=== PATIENT | female | born 1945 | race Caucasian/White ===

== ENCOUNTER → 2017-11-12 | Outpatient (CLI) | payer OTHER, BC ==
[~2017-11-12] MED LIST: ASPEC81 PO; CLR10 PO; DOCU100C PO; DORZ1SOL6 OPB; DSWCR TOP; ERGO1CAP35 PO; HYDR25TA4 PO; LEVO75TA PO; LEVO88TA PO; LORA-741 PO; LOSA1TAB38 PO; METO25TA4 PO; RANI150T85 PO; SIMV40TA2 PO
[2017-11-12 12:12] LABS: BASO % 0.4 %; BASO ABS # 0.02 K/uL (0-0.2); EOS % 4.9 %; EOS ABS # 0.23 K/uL (0-0.5); HEMATOCRIT 38.5 % (37-47); HEMOGLOBIN 12.7 g/dL (12.0-16.0); IG# 0.01 K/uL (0.00-0.02); LYMPH ABS # 1.55 K/uL (1.2-3.4); MEAN CELL VOLUME 95.8 fL (80-100); MEAN CORPUSCULAR HEMOGLOBIN 31.6 pg (25-34); MEAN PLATELET VOLUME 10.3 fL (7.4-10.4); MONO % 11.3 %; MONO ABS # 0.53 K/uL (0.11-0.59); NEUT % 50.2 %; NEUT ABS # 2.35 K/uL (1.4-6.5); PLATELET COUNT 267 K/uL (130-400); RED CELL DISTRIBUTION WIDTH CV 13.4 % (11.5-14.5); RED CELL DISTRIBUTION WIDTH SD 46.7 fL (36.4-46.3); WHITE BLOOD COUNT 4.69 K/uL (4.8-10.8)
[2017-11-12 12:23] LABS: ALBUMIN 3.4 gm/dl (3.4-5.0); ALT/SGPT 23 U/L (12-78); AST/SGOT 18 U/L (15-37); BLOOD UREA NITROGEN 13 mg/dl (7-18); CALCIUM 8.4 mg/dl (8.5-10.1); CARBON DIOXIDE 27 mmol/L (21-32); CHOLESTEROL 167 mg/dl (0-200); CREATININE 0.72 mg/dl (0.60-1.20); GLUCOSE 90 mg/dl (70-99); POTASSIUM 4.2 mmol/L (3.5-5.1); SODIUM 137 mmol/L (136-145)
[2017-11-12 12:32] LABS: ALKALINE PHOSPHATASE 81 U/L (45-117); LDL CHOLESTEROL CALCULATED 90 mg/dl; TOTAL PROTEIN 6.7 gm/dl (6.4-8.2)
== END | disposition home or self-care (01) ==
LOC: C.LAB1850 10:23
PROVIDERS: ATTEND Internal Medicine Cardiovascular Disease
DX: E78.5 Hyperlipidemia, unspecified (principal)

== ENCOUNTER → 2017-11-27 | Outpatient (CLI) | payer OTHER, BC ==
--- NOTE | 2017-11-29 08:01 | MAMMOGRAPHY REPORT ---
BILATERAL DIGITAL SCREENING MAMMOGRAM TOMOSYNTHESIS WITH CAD: 11/27/2017 CLINICAL HISTORY: Routine screening. Patient has no complaints. TECHNIQUE: Breast tomosynthesis in addition to standard 2D mammography was performed. Current study was also evaluated with a Computer Aided Detection (CAD) system. COMPARISON: Prior mammograms from [facility] dated 01/26/2014, 01/28/2015, 11/02/2016. BREAST COMPOSITION: The tissue of both breasts is almost entirely fatty. FINDINGS: There has been no significant interval change comparing to the prior outside mammograms. T here are a few stable benign rim calcifications in the breasts. No suspicious mass, architectural di stortion or cluster of microcalcifications is seen. IMPRESSION: ACR BI-RADS CATEGORY 1: NEGATIVE There is no mammographic evidence of malignancy. A 1 year screening mammogram is recommended. The pa tient will receive written notification of the results. Approximately 10% of breast cancers are not detected with mammography. A negative mammographic report should not delay biopsy if a clinically suggestive mass is present. Laura Kramer M.D. ay/:11/27/2017 16:38:31 Itinerant Teacher Assistant: Kristi SMALL(Indira)(Sara)(BD), [facility] letter sent: Normal 1/2 BI-RADS Code: ACR BI-RADS Category 1: Negative
== END | disposition home or self-care (01) ==
LOC: C.MAMM 13:38
PROVIDERS: ATTEND Neuromusculoskeletal Medicine & OMM
DX: Z12.31 Encounter for screening mammogram for malignant neoplasm of breast (principal)

== ENCOUNTER → 2018-04-17 | Outpatient (CLI) | payer OTHER, BC ==
[2018-04-17 10:01] LABS: BASO % 1.4 %; BASO ABS # 0.06 K/uL (0-0.2); EOS % 3.9 %; EOS ABS # 0.17 K/uL (0-0.5); HEMOGLOBIN 12.7 g/dL (12.0-16.0); LYMPH % 35.5 %; LYMPH ABS # 1.54 K/uL (1.2-3.4); MEAN CELL VOLUME 94.3 fL (80-100); MEAN CORPUSCULAR HEMOGLOBIN 31.5 pg (25-34); MEAN CORPUSCULAR HGB CONC 33.4 g/dl (32-36); MEAN PLATELET VOLUME 11.2 fL (7.4-10.4); MONO % 8.5 %; MONO ABS # 0.37 K/uL (0.11-0.59); NEUT % 50.7 %; PLATELET COUNT 158 K/uL (130-400); RED CELL DISTRIBUTION WIDTH CV 13.4 % (11.5-14.5); RED CELL DISTRIBUTION WIDTH SD 46.4 fL (36.4-46.3); WHITE BLOOD COUNT 4.34 K/uL (4.8-10.8)
[2018-04-17 13:52] LABS: ALBUMIN 3.5 gm/dl (3.4-5.0); ALKALINE PHOSPHATASE 216 U/L (45-117); ALT/SGPT 152 U/L (12-78); AST/SGOT 142 U/L (15-37); BLOOD UREA NITROGEN 21 mg/dl (7-18); CALCIUM 8.4 mg/dl (8.5-10.1); CARBON DIOXIDE 30 mmol/L (21-32); CHOLESTEROL 126 mg/dl (0-200); CREATININE 0.79 mg/dl (0.60-1.20); GLUCOSE 88 mg/dl (70-99); LDL CHOLESTEROL CALCULATED 60 mg/dl; POTASSIUM 4.1 mmol/L (3.5-5.1); SODIUM 138 mmol/L (136-145)
== END | disposition home or self-care (01) ==
LOC: C.LAB1850 08:57
PROVIDERS: ATTEND Neuromusculoskeletal Medicine & OMM
DX: Z00.00 Encounter for general adult medical examination without abnormal findings (principal); H54.7 Unspecified visual loss; I25.10 Atherosclerotic heart disease of native coronary artery without angina pectoris; E03.9 Hypothyroidism, unspecified; E55.9 Vitamin D deficiency, unspecified; I10 Essential (primary) hypertension

== ENCOUNTER → 2018-04-30 | Outpatient (CLI) | payer OTHER, BC ==
[2018-04-30 14:13] LABS: ALBUMIN 3.5 gm/dl (3.4-5.0)
== END | disposition home or self-care (01) ==
LOC: C.LAB1850 13:21
PROVIDERS: ATTEND Neuromusculoskeletal Medicine & OMM
DX: R74.8 Abnormal levels of other serum enzymes (principal)

== ENCOUNTER 2021-07-05 10:10 | Inpatient (IN) ==
[2021-07-05] MEDS ORDERED: SODIUM CHLORIDE 0.9% 1000ML 2,000 ML IV SCH (11:00)
[2021-07-05 11:09] LABS: Basophils # (auto) 0.01 K/uL (0-0.2); Basophils % (auto) 0.1 %; Eosinophils # (auto) 0.01 K/uL (0-0.5); Eosinophils % (auto) 0.1 %; Hematocrit (blood only) 38.4 % (37-47); Hemoglobin 13.5 g/dL (12.0-16.0); Immature Granulocytes # (auto) 0.05 K/uL (0.00-0.02); Immature Granulocytes % (auto) 0.4 %; Lymphocytes # (auto) 0.69 K/uL (1.2-3.4); Lymphocytes % (auto) 5.5 %; Mean Corpuscular Hgb Conc 35.2 g/dL (32-36); Mean Platelet Volume 11.5 fL (7.4-10.4); Monocytes # (auto) 1.14 K/uL (0.11-0.59); Neutrophils # (auto) 10.76 K/uL (1.4-6.5); Neutrophils % (auto) 84.9 %; Platelet Count 146 K/uL (130-400); RDW Coefficient of Variation 13.1 % (11.5-14.5); RDW Standard Deviation 43.6 fL (36.4-46.3); Red Blood Count 4.22 M/uL (4.2-5.4); White Blood Count 12.66 K/uL (4.8-10.8)
--- NOTE | 2021-07-05 11:11 | Emergency Department Note ---
History of Present Illness General Chief complaint: Back Injury/Pain Stated complaint: BACK PAIN Time Seen by Provider: 07/05/21 10:37 History of Present Illness Maximum Pain Intensity: 9 This is a 75-year-old female who presents to the ED with a chief complaint of some nausea and vomiting for the past 2-1/2 days. She also has been feeling lightheaded when she gets up. She states she has been having some lower abdominal/pelvis pain since March. She is also had low back pain for at least the past year or so. She has not seen anybody for this. She states that she has been taking ibuprofen for pain. She does suffer also from some constipation issues. She took single Dulcolax and did have a normal bowel movement yesterday. Then she states that she started urinating about once every hour a couple of days ago. No other complaints at this time. She was noted to be hypotensive in triage with a blood pressure 51/32. She was brought to the room and she was 67/48. She denies any chest pains or shortness of breath. She does report a history of 2 stents. Home Medications Medication Instructions Recorded Confirmed Type aspirin 81 mg tablet,delayed 81 mg PO QAM 12/19/18 07/05/21 History release cholecalciferol (vitamin D3) 50 2,000 unit PO QAM 12/19/18 07/05/21 History mcg (2,000 unit) tablet (Vitamin D3) docusate sodium 100 mg tablet 100 mg PO HS 12/19/18 07/05/21 History (Stool Softener) loratadine 10 mg capsule 10 mg PO DAILY PRN 12/19/18 07/05/21 History desonide 0.05 % topical cream 1 appln TOP BID 07/10/19 07/05/21 History dorzolamide 22.3 mg-timolol 6.8 1 drp OPHTHALMIC (EYE) BID 07/10/19 07/05/21 History mg/mL eye drops lorazepam 0.5 mg tablet 0.5 mg PO DAILY PRN 07/10/19 07/05/21 History metoprolol tartrate 25 mg tablet 25 mg PO BID #180 tab 07/09/20 07/05/21 Rx losartan 100 mg tablet 100 mg PO DAILY #90 tab 09/03/20 07/05/21 Rx levothyroxine 75 mcg tablet 75 mcg PO Q OTHER DAY #45 tab 09/23/20 07/05/21 Rx hydrochlorothiazide 12.5 mg tablet 12.5 mg PO DAILY #90 tab 01/02/21 07/05/21 Rx levothyroxine 88 mcg tablet 88 mcg PO Q OTHER DAY #45 tab 04/26/21 07/05/21 Rx alendronate 70 mg tablet (Fosamax) 70 mg PO ELLIS 07/05/21 07/05/21 History atorvastatin 80 mg tablet 80 mg PO HS 07/05/21 07/05/21 History Allergies Allergy/AdvReac Type Severity Reaction Status Date / Time duloxetine Allergy Mild "I was on Verified 07/05/21 10:34 an emotional roller coaster" oxycodone Allergy Mild nightmares Verified 07/05/21 10:34 turkey Allergy Mild nausea/vomi Verified 07/05/21 10:34 ting Past Med/Surg History Medical History Anxiety Chest pain (11/14/13) Degenerative disc disease Elevated troponin I level Glaucoma History of Graves' disease Hyperlipidemia Hypertension Hypokalemia Hypothyroidism Migraine Osteoarthritis Pulmonary embolism Pulmonary embolism 2012--unknown origin Surgical History History of bilateral tubal ligation History of cardiac cath 10/2010 x2 History of cholecystectomy History of colonoscopy History of esophagogastroduodenoscopy (EGD) History of heart artery stent 10/2010 2 stents History of lumbar discectomy x2 L4-L5 History of parathyroidectomy with thyroidectomy History of thyroidectomy, total 1985--enlarged thyroid, Grave's Disease History of tooth extraction upper teeth removed Family History Grandmother (Maternal) Family history of diabetes mellitus Grandmother (Paternal) Family history of diabetes mellitus Father Myocardial infarction Other No family history of adverse response to anesthesia Denies family history of Ovarian cancer Prostate cancer Breast cancer Colorectal cancer Social History Smoking Status: Former smoker Tobacco Type: Cigarettes Age Started Using Tobacco: 20; Age Quit Using Tobacco: 69; packs per day: 0.5; Years Smoked: 49; Number of Years Since Quit: 4; Second Hand Exposure: Yes ( smokes); Hx Alcohol Use: Yes Alcohol type: wine and hard liquor Alcohol Intake Frequency: 2-4 x/Month Hx Substance Use: No Preferred Language: Comoran Communication Ability: Effective 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 Consultant Required: No Beliefs That Will Affect Care: None marital status: Current Living Situation: Spouse current occupational status: retired Feels Safe at Home: Yes Childhood Exposure to Second-Hand Smoke: Yes Dental Care, Regularly: Yes Physical Activity Frequency: 1-2 Times per Week Seatbelt Use: always Sunscreen Use: Yes Assistive Devices: Denture - Upper and Glasses Review of Systems A total of 10 systems reviewed and were otherwise negative Physical Exam Vital Signs Vital Signs - 24 hr 07/05/21 10:16 07/05/21 10:25 07/05/21 10:30 Temperature 36.2 C L Temperature Source Temporal Artery Scan Pulse Rate - Lying Pulse Rate - Sitting Pulse Rate - Standing Pulse Rate 115 H Pulse Rate [Left Apical] 75 77 Pulse Rhythm [Left Apical] Regular Regular Pulse Strength [Left Apical] Normal Respiratory Rate 16 16 16 Respiratory Effort / Characteristics Non-Labored Non-Labored Respiratory Depth Normal Normal Blood Pressure - Lying Blood Pressure - Sitting Blood Pressure- Standing Blood Pressure 51/32 L Blood Pressure [Right Arm] 85/49 L 67/48 L Blood Pressure Mean 38 Blood Pressure Mean [Right Arm] 61 54 Blood Pressure Position [Right Arm] Lying Lying Pulse Oximetry 96 97 95 Oxygen Delivery Method Room Air Room Air Room Air Sepsis Recent Fever Within 48 Hours No Sepsis New/Unexplained Change in Mental Status No Sepsis Action Taken by Nursing No Action Required 07/05/21 10:32 07/05/21 10:38 07/05/21 10:42 Temperature Temperature Source Pulse Rate - Lying Pulse Rate - Sitting Pulse Rate - Standing Pulse Rate 76 Pulse Rate [Left Apical] 74 76 Pulse Rhythm [Left Apical] Regular Pulse Strength [Left Apical] Normal Respiratory Rate 22 16 16 Respiratory Effort / Characteristics Non-Labored Non-Labored Respiratory Depth Normal Normal Blood Pressure - Lying Blood Pressure - Sitting Blood Pressure- Standing Blood Pressure Blood Pressure [Right Arm] 85/55 L 82/52 L Blood Pressure Mean Blood Pressure Mean [Right Arm] 65 62 Blood Pressure Position [Right Arm] Lying Pulse Oximetry 96 97 98 Oxygen Delivery Method Room Air Room Air Sepsis Recent Fever Within 48 Hours Sepsis New/Unexplained Change in Mental Status Sepsis Action Taken by Nursing 07/05/21 11:01 07/05/21 11:21 07/05/21 11:22 Temperature Temperature Source Pulse Rate - Lying Pulse Rate - Sitting Pulse Rate - Standing Pulse Rate 74 Pulse Rate [Left Apical] 69 Pulse Rhythm [Left Apical] Pulse Strength [Left Apical] Respiratory Rate 20 16 Respiratory Effort / Characteristics Respiratory Depth Blood Pressure - Lying Blood Pressure - Sitting Blood Pressure- Standing Blood Pressure Blood Pressure [Right Arm] 97/57 L Blood Pressure Mean Blood Pressure Mean [Right Arm] 70 Blood Pressure Position [Right Arm] Pulse Oximetry 97 97 Oxygen Delivery Method Room Air Sepsis Recent Fever Within 48 Hours Sepsis New/Unexplained Change in Mental Status Sepsis Action Taken by Nursing 07/05/21 11:24 07/05/21 11:30 07/05/21 12:00 Temperature Temperature Source Pulse Rate - Lying 68 Pulse Rate - Sitting 70 Pulse Rate - Standing 72 Pulse Rate 69 66 Pulse Rate [Left Apical] Pulse Rhythm [Left Apical] Pulse Strength [Left Apical] Respiratory Rate 22 19 Respiratory Effort / Characteristics Respiratory Depth Blood Pressure - Lying 94/51 L Blood Pressure - Sitting 95/52 L Blood Pressure- Standing 100/55 L Blood Pressure Blood Pressure [Right Arm] Blood Pressure Mean Blood Pressure Mean [Right Arm] Blood Pressure Position [Right Arm] Pulse Oximetry 97 97 Oxygen Delivery Method Sepsis Recent Fever Within 48 Hours Sepsis New/Unexplained Change in Mental Status Sepsis Action Taken by Nursing 07/05/21 12:30 07/05/21 13:01 07/05/21 14:12 Temperature Temperature Source Pulse Rate - Lying Pulse Rate - Sitting Pulse Rate - Standing Pulse Rate 67 Pulse Rate [Left Apical] 67 63 Pulse Rhythm [Left Apical] Regular Pulse Strength [Left Apical] Normal Respiratory Rate 14 12 Respiratory Effort / Characteristics Non-Labored Respiratory Depth Normal Blood Pressure - Lying Blood Pressure - Sitting Blood Pressure- Standing Blood Pressure Blood Pressure [Right Arm] 99/56 L 90/51 L 88/51 L Blood Pressure Mean Blood Pressure Mean [Right Arm] 70 64 63 Blood Pressure Position [Right Arm] Lying Pulse Oximetry 97 97 Oxygen Delivery Method Room Air Room Air Sepsis Recent Fever Within 48 Hours Sepsis New/Unexplained Change in Mental Status Sepsis Action Taken by Nursing 07/05/21 14:27 Temperature Temperature Source Pulse Rate - Lying Pulse Rate - Sitting Pulse Rate - Standing Pulse Rate Pulse Rate [Left Apical] 64 Pulse Rhythm [Left Apical] Regular Pulse Strength [Left Apical] Normal Respiratory Rate 12 Respiratory Effort / Characteristics Non-Labored Respiratory Depth Normal Blood Pressure - Lying Blood Pressure - Sitting Blood Pressure- Standing Blood Pressure Blood Pressure [Right Arm] 91/52 L Blood Pressure Mean Blood Pressure Mean [Right Arm] 65 Blood Pressure Position [Right Arm] Lying Pulse Oximetry 97 Oxygen Delivery Method Room Air Sepsis Recent Fever Within 48 Hours Sepsis New/Unexplained Change in Mental Status Sepsis Action Taken by Nursing CONSTITUTIONAL/VITAL SIGNS: Reviewed / noted above. GENERAL: Non-toxic in appearance. INTEGUMENTARY: Warm, dry, and [place]. HEAD: Normocephalic. EYES: without scleral icterus or trauma. ENT/OROPHARYNX: clear and moist. LYMPHADENOPATHY/NECK: Is supple without lymphadenopathy or meningismus. RESPIRATORY: Clear to auscultation bilaterally. No increased work of breathing. CARDIOVASCULAR: Regular rate and rhythm. GI/ABDOMEN: Soft and minimally tender. No organomegaly or pulsatile mass. EXTREMITIES: Warm and well perfused. BACK: No CVA tenderness. NEUROLOGICAL: Intact without focal deficits. PSYCHIATRIC: normal affect. MUSCULOSKELETAL: Normally developed with good muscle tone. TRIAGE NURSING DOCUMENTATION REVIEWED. Course Administered Medications Discontinued Medications Sodium Chloride (Nss 1000ml) 2,000 mls @ 999 mls/hr IV .Q2H1M TAY Stop: 07/05/21 13:00 Last Infusion: 07/05/21 12:52 Dose: 0 mls/hr Documented by: [id number] Admin: 07/05/21 10:45 Dose: 999 mls/hr Documented by: [id number] Cefepime HCl (Maxipime) 2,000 mg in 20 mls @ 5 mls/min IV NOW STA; Protocol Stop: 07/05/21 14:17 Last Admin: 07/05/21 14:26 Dose: 5 mls/min Documented by: [id number] Ioversol (Optiray 320 100ml) 92 ml IV ONCE ONE Stop: 07/05/21 12:30 Last Admin: 07/05/21 12:29 Dose: 92 ml Documented by: [id number] Critical Care Time Critical Care Time: Yes Total Critical Care Time: 30 I have personally spent 30 minutes of critical care time in the direct manage ment of this patient. This includes bedside care, interpretation of diagnostic studies, and testing, discussion with consultants, patient, and family members, and other required patient management activities. This 30 minutes is in excess of all separately billable procedures. Medical Decision Making Differential Diagnosis Differential considered: pancreatitis, hepatitis, acute cholecystitis, AAA, UTI, pyelonephritis, kidney stones, appendicitis, diverticulitis, shingles, bowel obstruction, mesenteric ischemia, intussusception,hernia. Differential includes acute coronary syndrome, myocardial infarction, CVA, TIA, anemia, infection, pneumonia, UTI, pyelonephritis, poor nutrition, dehydration, electrolyte disturbance,hypoglycemia. Medical Records Attestation: I reviewed the patient's medical records. Home Medications Current Medication List: was personally reviewed by me Laboratory Data Attestation: I reviewed the patient's lab results. Result diagrams: 07/05/21 10:30 07/05/21 10:30 Lab Results 07/05/21 07/05/21 07/05/21 Range/Units 10:30 10:30 11:05 WBC 12.66 H (4.8-10.8) K/uL RBC 4.22 (4.2-5.4) M/uL Hgb 13.5 (12.0-16.0) g/dL Hct 38.4 (37-47) % MCV 91.0 (80-100) fL MCH 32.0 (25-34) pg MCHC 35.2 (32-36) g/dL RDW Std Deviation 43.6 (36.4-46.3) fL RDW Coeff of Pepe 13.1 (11.5-14.5) % Plt Count 146 (130-400) K/uL MPV 11.5 H (7.4-10.4) fL Immature Gran % (Auto) 0.4 % Neut % (Auto) 84.9 % Lymph % (Auto) 5.5 % [place] % (Auto) 9.0 % Eos % (Auto) 0.1 % Baso % (Auto) 0.1 % Neut # (Auto) 10.76 H (1.4-6.5) K/uL Lymph # (Auto) 0.69 L (1.2-3.4) K/uL [place] # (Auto) 1.14 H (0.11-0.59) K/uL Eos # (Auto) 0.01 (0-0.5) K/uL Baso # (Auto) 0.01 (0-0.2) K/uL Immature Gran # (Auto) 0.05 H (0.00-0.02) K/uL Sodium 131 L (136-145) mmol/L Potassium 2.9 L (3.5-5.1) mmol/L Chloride 97 L (98-107) mmol/L Carbon Dioxide 23 (21-32) mmol/L Anion Gap 11.0 (3-11) BUN 16 (7-18) mg/dl Creatinine 1.24 H (0.6-1.2) mg/dl Est Cr Clr Drug Dosing Not Reportable Est GFR ( Amer) 49.9 ml/min Est GFR (Non-Af Amer) 43.1 ml/min BUN/Creatinine Ratio 13.0 (10-20) Glucose 120 H (70-99) mg/dl Lactate (0.4-2.0) mmol/L Calcium 8.6 (8.5-10.1) mg/dl Magnesium 2.0 (1.8-2.4) mg/dl Total Bilirubin 1.5 H (0.2-1) mg/dl AST 32 (15-37) U/L ALT 18 (12-78) U/L Alkaline Phosphatase 64 (45-117) U/L Total Creatine Kinase 172 (26-192) U/L Troponin I 0.200 H* (0-0.045) ng/ml Total Protein 6.9 (6.4-8.2) gm/dl Albumin 2.7 L (3.4-5.0) gm/dl Globulin 4.2 H (2.5-4.0) gm/dl Albumin/Globulin Ratio 0.6 L (0.9-2) TSH 0.621 (0.300-4.500) uIu/ml Urine Color Dark Yellow Urine Appearance Turbid A (Clear) Urine pH 6.0 (4.5-7.5) Ur Specific [place] 1.013 (1.000-1.030) Urine Protein 2+ H (Negative) Urine Glucose (UA) Negative (Negative) Urine Ketones Negative (Negative) Urine Blood 3+ H (Negative) Urine Nitrite Negative (Negative) Urine Bilirubin 1+ H (Negative) Urine Urobilinogen Negative (Negative) Ur Leukocyte Esterase 3+ H (Negative) Urine WBC (Auto) >30 H (0-5) /hpf Urine RBC (Auto) >30 H (0-4) /hpf U Hyaline Cast (Auto) 5-10 H (0-5) /lpf U Epithel Cells (Auto) >30 H (0-5) /lpf Urine Bacteria (Auto) 4+ H (Negative) Urine Yeast Not Reportable 07/05/21 Range/Units 11:16 WBC (4.8-10.8) K/uL RBC (4.2-5.4) M/uL Hgb (12.0-16.0) g/dL Hct (37-47) % MCV (80-100) fL MCH (25-34) pg MCHC (32-36) g/dL RDW Std Deviation (36.4-46.3) fL RDW Coeff of Pepe (11.5-14.5) % Plt Count (130-400) K/uL MPV (7.4-10.4) fL Immature Gran % (Auto) % Neut % (Auto) % Lymph % (Auto) % [place] % (Auto) % Eos % (Auto) % Baso % (Auto) % Neut # (Auto) (1.4-6.5) K/uL Lymph # (Auto) (1.2-3.4) K/uL [place] # (Auto) (0.11-0.59) K/uL Eos # (Auto) (0-0.5) K/uL Baso # (Auto) (0-0.2) K/uL Immature Gran # (Auto) (0.00-0.02) K/uL Sodium (136-145) mmol/L Potassium (3.5-5.1) mmol/L Chloride (98-107) mmol/L Carbon Dioxide (21-32) mmol/L Anion Gap (3-11) BUN (7-18) mg/dl Creatinine (0.6-1.2) mg/dl Est Cr Clr Drug Dosing Est GFR ( Amer) ml/min Est GFR (Non-Af Amer) ml/min BUN/Creatinine Ratio (10-20) Glucose (70-99) mg/dl Lactate 1.5 (0.4-2.0) mmol/L Calcium (8.5-10.1) mg/dl Magnesium (1.8-2.4) mg/dl Total Bilirubin (0.2-1) mg/dl AST (15-37) U/L ALT (12-78) U/L Alkaline Phosphatase (45-117) U/L Total Creatine Kinase (26-192) U/L Troponin I (0-0.045) ng/ml Total Protein (6.4-8.2) gm/dl Albumin (3.4-5.0) gm/dl Globulin (2.5-4.0) gm/dl Albumin/Globulin Ratio (0.9-2) TSH (0.300-4.500) uIu/ml Urine Color Urine Appearance (Clear) Urine pH (4.5-7.5) Ur Specific [place] (1.000-1.030) Urine Protein (Negative) Urine Glucose (UA) (Negative) Urine Ketones (Negative) Urine Blood (Negative) Urine Nitrite (Negative) Urine Bilirubin (Negative) Urine Urobilinogen (Negative) Ur Leukocyte Esterase (Negative) Urine WBC (Auto) (0-5) /hpf Urine RBC (Auto) (0-4) /hpf U Hyaline Cast (Auto) (0-5) /lpf U Epithel Cells (Auto) (0-5) /lpf Urine Bacteria (Auto) (Negative) Urine Yeast Imaging Data Radiologist's Impression: Abdomen/Pelvis CT 07/05/21 00:[address] WITH IV CONTRAST CT DOSE: 620.85 mGy.cm HISTORY: low abd pain, low back pain, low bp, n/v TECHNIQUE: Multiaxial CT images of the abdomen and pelvis were performed following the use of intravenous contrast. A dose lowering technique was utilized adhering to the principles of ALARA. COMPARISON STUDY: None. FINDINGS: Severe disc space narrowing at L5-S1. There is mild disc space narrowing at L4-5 grade 1 anterolisthesis. Moderate facet degenerative changes within the lower lumbar spine. No fractures within the visualized osseous structures. Mild dependent changes seen at the lung bases. No fractures within the visualized osseous structures. Trace bilateral pleural effusions are noted. Cholecystectomy. This may account for the mild bile duct dilatation with the common bile duct measuring up to 9 mm in diameter. Multiple hypodense lesions seen within the liver with the largest in the right hepatic lobe measuring 5.5 cm. These likely represent cysts. The main portal vein is patent. The pancreas, spleen, and adrenal glands are unremarkable. Moderate calcified plaque within the normal caliber abdominal aorta. No retroperitoneal lymphadenopathy. Mild heterogeneous enhancement within the bilateral kidneys with mild bilateral perinephric fat stranding and mild urothelial thickening seen within the renal pelvis sees and ureters. No ureteral stones. No hydronephrosis. There is also moderate bladder wall thickening. Findings favor a bilateral pyelonephritis/pyelitis with an associated cystitis. This can be correlated with urinalysis. There are 2 subcentimeter hypodense lesions within the right kidney. These are technically too small to characterize but favor cysts. Trace pelvic free fluid. Mild pelvic floor collapse. The uterus is unremarkable. There are are bilateral tubal ligation clips noted. Colonic diverticulosis. No evidence for acute diverticulitis. No bowel wall thickening or obstruction. Normal appendix. IMPRESSION: 1. Above findings likely represent a bilateral pyelonephritis/pyelitis with an associated cystitis. This can be correlated with urinalysis. 2. Trace bilateral pleural effusions. 3. Colonic diverticulosis. No evidence for acute diverticulitis. 4. Trace pelvic free fluid. 5. Additional findings as described above. ACT 112: Negative or not required by law. Electronically signed by: Lauri Piña M.D. 07/05/2021 12:56 PM Chest X-Ray 07/05/21 10:54 SINGLE VIEW CHEST CLINICAL HISTORY: Generalized weakness. FINDINGS: An AP, portable, upright chest radiograph is compared to study dated 11/14/2013 and correlated with chest CT dated 11/15/2013. The heart is top normal for projection noting atherosclerotic calcification of the thoracic aorta. Chronic interstitial thickening is similar to previous. There is mild bibasilar atelectasis. The lungs and pleural spaces are otherwise clear. No pneumothorax is seen. The skeletal structures are osteopenic. The bony thorax is grossly intact. Cholecystectomy clips are seen in the right upper quadrant. IMPRESSION: No active disease in the chest. ACT 112: Negative or not required by law. Electronically signed by: Dick Zhao M.D. 07/05/2021 11:15 AM ECG Data Attestation: I personally reviewed and interpreted this ECG as follows: Additional Comments: Twelve-lead EKG: Per my interpretation there is a normal sinus rhythm at a rate of 70. No ST elevation. No PVCs. Normal QTC MDM Narrative 75-year-old female presents with lightheadedness and dizziness that is worse with standing after having 2 to 3 days worth of nausea vomiting. She also reports some ongoing lower abdominal pain for months and low back pain for about a year. She has not had it evaluated. Initial vital signs showed hypotension. The patient was hydrated with IV fluids. The urine does confirm UTI. Chest x- ray was negative for acute disease. White blood cell count was 12.6. Potassium is 2.9. Creatinine is 1.24. Troponin was elevated 0.2. TSH is normal. CT scan shows findings suggesting pyelitis and pyelonephritis bilaterally. Patient will require further inpatient evaluation and care. The elevated troponin could be related to the patient's hypotension. The patient was given 2.5 L normal saline IV. She was given IV cefepime. She will be seen by the hospital for further inpatient evaluation and care. Patient blood pressure has improved some during her ED stay. She is not tachycardic or septic in appearance. Her hypotension could be related to 3 days of vomiting and no p.o. intake in addition to the infection. At this point the patient does not appear to require pressors. Impression & Plan Acute pyelonephritis, Septic shock, UTI (urinary tract infection) Discharge Plan Visit Data Chief Complaint: Back Injury/Pain Stated Complaint: BACK PAIN Discharge Problem: Acute pyelonephritis, Septic shock, UTI (urinary tract infection) Patient Disposition: Admitted As Inpatient Forms Stand Alone Forms: [facility] Prescriptions Prescriptions: No Action metoprolol tartrate 25 mg tablet 25 mg PO BID Qty: 180 RF: 3 losartan 100 mg tablet 100 mg PO DAILY Qty: 90 RF: 3 levothyroxine 75 mcg tablet 75 mcg PO Q OTHER DAY Qty: 45 RF: 4 hydrochlorothiazide 12.5 mg tablet 12.5 mg PO DAILY Qty: 90 RF: 3 levothyroxine 88 mcg tablet 88 mcg PO Q OTHER DAY Qty: 45 RF: 1 desonide 0.05 % cream 1 appln TOP BID RF: 0 dorzolamide-timolol 22.3-6.8 mg/mL drops 1 drp OPHTHALMIC (EYE) BID RF: 0 lorazepam 0.5 mg tablet 0.5 mg PO DAILY PRN (Reason: Anxiety) RF: 0 aspirin 81 mg Tablet,Delayed Release (Dr/Ec) 81 mg PO QAM RF: 0 docusate sodium [Stool Softener] 100 mg Tablet 100 mg PO HS RF: 0 cholecalciferol (vitamin D3) [Vitamin D3] 2,000 unit Tablet 2,000 unit PO QAM RF: 0 loratadine 10 mg Capsule 10 mg PO DAILY PRN (Reason: Allergy Symptoms) RF: 0 atorvastatin 80 mg tablet 80 mg PO HS RF: 0 alendronate [Fosamax] 70 mg tablet 70 mg PO ELLIS RF: 0 Referrals Referrals: Carlos Enrique Montana DO [Primary Care Provider] - Discharge Problem: UTI (urinary tract infection) Qualifiers: Urinary tract infection type: acute pyelonephritis Qualified Code(s): N10 - Acute pyelonephritis
--- NOTE | 2021-07-05 11:16 | XRay Report ---
SINGLE VIEW CHEST CLINICAL HISTORY: Generalized weakness. FINDINGS: An AP, portable, upright chest radiograph is compared to study dated 11/14/2013 and correlat ed with chest CT dated 11/15/2013. The heart is top normal for projection noting atherosclerotic calci fication of the thoracic aorta. Chronic interstitial thickening is similar to previous. There is mild bibasilar atelectasis. The lungs and pleural spaces are otherwise clear. No pneumothorax is seen. Th e skeletal structures are osteopenic. The bony thorax is grossly intact. Cholecystectomy clips are se en in the right upper quadrant. IMPRESSION: No active disease in the chest. ACT 112: Negative or not required by law. Electronically signed by: Dick Zhao M.D. 07/05/2021 11:15 AM
[2021-07-05 11:35] LABS: Appearance Urine Turbid (Clear); Bacteria Urine Automated 4+ (Negative); Blood Urine 3+ (Negative); Color Urine Dark Yellow; Epithelial Cell Urine Auto >30 /lpf (0-5); Glucose Urine UA Negative (Negative); Ketones Urine Negative (Negative); Leukocyte Esterase Urine 3+ (Negative); Nitrite Urine Negative (Negative); Protein Urine 2+ (Negative); Specific Gravity Urine 1.013 (1.000-1.030); Urobilinogen Urine Negative (Negative); WBC Urine Automated >30 /hpf (0-5)
[2021-07-05 11:36] LABS: Bilirubin Urine 1+ (Negative)
[2021-07-05 11:41] LABS: Alanine Aminotransferase 18 U/L (12-78); Albumin Globulin Ratio 0.6 (0.9-2); Albumin Level 2.7 gm/dl (3.4-5.0); Alkaline Phosphatase 64 U/L (45-117); Bilirubin,Total 1.5 mg/dl (0.2-1); Blood Urea Nitrogen 16 mg/dl (7-18); Calcium 8.6 mg/dl (8.5-10.1); Carbon Dioxide 23 mmol/L (21-32); Chloride 97 mmol/L (98-107); Est GFR (African American) 49.9 ml/min; Est GFR (Non-African American) 43.1 ml/min; Globulin 4.2 gm/dl (2.5-4.0); Glucose 120 mg/dl (70-99); Thyroid Stimulating Hormone 0.621 uIu/ml (0.300-4.500); Total Protein 6.9 gm/dl (6.4-8.2)
[2021-07-05 11:46] LABS: Potassium 2.9 mmol/L (3.5-5.1); Sodium 131 mmol/L (136-145)
[2021-07-05 11:49] LABS: RBC Urine Automated >30 /hpf (0-4)
[2021-07-05 11:53] LABS: Aspartate Aminotransferase 32 U/L (15-37); Creatine Kinase 172 U/L (26-192)
[2021-07-05] MEDS ORDERED: OPTIRAY 320 100ml IV ONE (12:29)
--- NOTE | 2021-07-05 12:57 | CT Scan Report ---
ABDOMEN AND PELVIS CT WITH IV CONTRAST CT DOSE: 620.85 mGy.cm HISTORY: low abd pain, low back pain, low bp, n/v TECHNIQUE: Multiaxial CT images of the abdomen and pelvis were performed following the use of intrave nous contrast. A dose lowering technique was utilized adhering to the principles of ALARA. COMPARISON STUDY: None. FINDINGS: Severe disc space narrowing at L5-S1. There is mild disc space narrowing at L4-5 grade 1 an terolisthesis. Moderate facet degenerative changes within the lower lumbar spine. No fractures within the visualized osseous structures. Mild dependent changes seen at the lung bases. No fractures withi n the visualized osseous structures. Trace bilateral pleural effusions are noted. Cholecystectomy. Th is may account for the mild bile duct dilatation with the common bile duct measuring up to 9 mm in di ameter. Multiple hypodense lesions seen within the liver with the largest in the right hepatic lobe m easuring 5.5 cm. These likely represent cysts. The main portal vein is patent. The pancreas, spleen, and adrenal glands are unremarkable. Moderate calcified plaque within the normal caliber abdominal ao rta. No retroperitoneal lymphadenopathy. Mild heterogeneous enhancement within the bilateral kidneys with mild bilateral perinephric fat stranding and mild urothelial thickening seen within the renal pe lvis sees and ureters. No ureteral stones. No hydronephrosis. There is also moderate bladder wall thi ckening. Findings favor a bilateral pyelonephritis/pyelitis with an associated cystitis. This can be correlated with urinalysis. There are 2 subcentimeter hypodense lesions within the right kidney. Thes e are technically too small to characterize but favor cysts. Trace pelvic free fluid. Mild pelvic terri or collapse. The uterus is unremarkable. There are are bilateral tubal ligation clips noted. Colonic diverticulosis. No evidence for acute diverticulitis. No bowel wall thickening or obstruction. Normal appendix. IMPRESSION: 1. Above findings likely represent a bilateral pyelonephritis/pyelitis with an associated cystitis. T his can be correlated with urinalysis. 2. Trace bilateral pleural effusions. 3. Colonic diverticulosis. No evidence for acute diverticulitis. 4. Trace pelvic free fluid. 5. Additional findings as described above. ACT 112: Negative or not required by law. Electronically signed by: Lauri Piña M.D. 07/05/2021 12:56 PM
[2021-07-05] MEDS ORDERED: CEFEPIME 2,000 MG/20 ML VIAL IV STA (14:14)
[2021-07-05] MEDS ORDERED: SODIUM CHLORIDE 0.9% 1000ML 500 ML IV ONE (14:31)
--- NOTE | 2021-07-05 15:33 | History & Physical Report ---
Date of Service July 05, 2021 Assessment & Plan (1) Septic shock: Plan: Very hypertensive on presentation, seems to be responding well to IV fluids Continue IV hydration as noted Follow cultures Initial lactic acid is 1.5, normal range Treatment of pyelonephritis as detailed below Will hold hydrochlorothiazide and losartan for acute renal insufficiency and hypotension DVT prophylaxis with heparin (2) Acute pyelonephritis: Plan: Patient was started on IV cefepime, will continue this for now pending urine and blood cultures (3) Hyperlipidemia: Plan: Continue atorvastatin as ordered (4) Elevated troponin: Plan: Suspect this is secondary to prolonged period of hypotension which is now much improved Continue treatment for coronary disease as noted below Trend troponins Consider 2D echo We will hold off on full dose anticoagulation for now (5) Hypothyroidism associated with surgical procedure: Plan: Continue levothyroxine as ordered (6) Coronary artery disease: Plan: Hold losartan, okay to continue atorvastatin. Patient is on aspirin 81 mg daily Hold off on p.o. metoprolol until blood pressure has recovered (7) Anxiety: Plan: I do see as needed lorazepam on her outpatient medications, will order here as well Plan: Patient notes that she would like to be a DNR/DNI, ordered per patient request History of Present Illness Chief Complaint: Back pain/dysuria Primary Care Provider: Carlos Enrique Montana, DO This is a 75-year-old female with past medical history of L4-L5 radiculopathy, hyperlipidemia, CAD that presents today complaining of back pain and dysuria. Patient is a somewhat difficult historian as she is somewhat divergent and the prior history. However, she does answer questions accurately. Patient has had a very long history of back pain, was in the lumbar region. She has had surgery on this before. She had problems that have been ongoing and affect her today. However, more recently over the past 3 days she has been having worsening pain along with lethargy. She notes some dysuria and increased frequency where she was urinating every hour. She noted some generalized weakness which seem to get worse. She was having some constipation and took a Dulcolax with a normal bowel movement. However, her other symptoms seem to worsen and her eventually pressured her to come to the emergency room for evaluation. In triage, her blood pressure was 51/32. She was hydrated aggressively normal saline and has had approximately 2.5 L prior to my arrival with her blood pressure now in the 90s. Patient is much more alert. She still has an appetite and she is eating peanut butter crackers with her . She denies any other symptoms such as chest pain, shortness of breath, palpitations. She does note some lightheadedness, especially when she was moving through the emergency room to her room. Work-up revealed UTI and CT scan was suspicious for pyelonephritis. Patient is now being admitted for further treatment of sepsis and urinary tract infection. Allergies Allergy/AdvReac Type Severity Reaction Status Date / Time duloxetine Allergy Mild "I was on Verified 07/05/21 10:34 an emotional roller coaster" oxycodone Allergy Mild nightmares Verified 07/05/21 10:34 turkey Allergy Mild nausea/vomi Verified 07/05/21 10:34 ting Home Medications Medication Instructions Recorded Confirmed Type aspirin 81 mg tablet,delayed 81 mg PO QAM 12/19/18 07/05/21 History release cholecalciferol (vitamin D3) 50 2,000 unit PO QAM 12/19/18 07/05/21 History mcg (2,000 unit) tablet (Vitamin D3) docusate sodium 100 mg tablet 100 mg PO HS 12/19/18 07/05/21 History (Stool Softener) loratadine 10 mg capsule 10 mg PO DAILY PRN 12/19/18 07/05/21 History desonide 0.05 % topical cream 1 appln TOP BID 07/10/19 07/05/21 History dorzolamide 22.3 mg-timolol 6.8 1 drp OPHTHALMIC (EYE) BID 07/10/19 07/05/21 History mg/mL eye drops lorazepam 0.5 mg tablet 0.5 mg PO DAILY PRN 07/10/19 07/05/21 History metoprolol tartrate 25 mg tablet 25 mg PO BID #180 tab 07/09/20 07/05/21 Rx losartan 100 mg tablet 100 mg PO DAILY #90 tab 09/03/20 07/05/21 Rx levothyroxine 75 mcg tablet 75 mcg PO Q OTHER DAY #45 tab 09/23/20 07/05/21 Rx hydrochlorothiazide 12.5 mg tablet 12.5 mg PO DAILY #90 tab 01/02/21 07/05/21 Rx levothyroxine 88 mcg tablet 88 mcg PO Q OTHER DAY #45 tab 04/26/21 07/05/21 Rx alendronate 70 mg tablet (Fosamax) 70 mg PO ELLIS 07/05/21 07/05/21 History atorvastatin 80 mg tablet 80 mg PO HS 07/05/21 07/05/21 History Past Med/Surg History Medical History Anxiety Chest pain (11/14/13) Degenerative disc disease Elevated troponin I level Glaucoma History of Graves' disease Hyperlipidemia Hypertension Hypokalemia Hypothyroidism Migraine Osteoarthritis Pulmonary embolism Pulmonary embolism 2012--unknown origin Surgical History History of bilateral tubal ligation History of cardiac cath 10/2010 x2 History of cholecystectomy History of colonoscopy History of esophagogastroduodenoscopy (EGD) History of heart artery stent 10/2010 2 stents History of lumbar discectomy x2 L4-L5 History of parathyroidectomy with thyroidectomy History of thyroidectomy, total 1986--enlarged thyroid, Grave's Disease History of tooth extraction upper teeth removed Family History Grandmother (Maternal) Family history of diabetes mellitus Grandmother (Paternal) Family history of diabetes mellitus Father Myocardial infarction Other No family history of adverse response to anesthesia Denies family history of Ovarian cancer Prostate cancer Breast cancer Colorectal cancer Social History Smoking Status: Former smoker Tobacco Type: Cigarettes Age Started Using Tobacco: 20; Age Quit Using Tobacco: 69; packs per day: 0.5; Years Smoked: 49; Number of Years Since Quit: 4; Second Hand Exposure: Yes ( smokes); Hx Alcohol Use: Yes Alcohol type: wine and hard liquor Alcohol Intake Frequency: 2-4 x/Month Hx Substance Use: No Preferred Language: Dutch Communication Ability: Effective Paleology Professor Required: No Beliefs That Will Affect Care: None marital status: Current Living Situation: Spouse current occupational status: retired Feels Safe at Home: Yes Childhood Exposure to Second-Hand Smoke: Yes Dental Care, Regularly: Yes Physical Activity Frequency: 1-2 Times per Week Seatbelt Use: always Sunscreen Use: Yes Assistive Devices: Denture - Upper and Glasses Review of Systems Constitutional: + fever, + chills, + fatigue and + weakness; no weight loss and no weight gain Eyes: as per Subjective / HPI Respiratory: no cough, no chest congestion, no dyspnea and no dyspnea on ex ertion Cardiovascular: no chest pain, no orthopnea, no palpitations, no lightheadedness and no edema Gastrointestinal: + constipation; no abdominal pain, no nausea, no vomiting and no diarrhea/loose stools Genitourinary: + dysuria, + urinary frequency, + urinary urgency, + hematuria and + flank pain; no difficulty urinating and no urinary hesitancy Musculoskeletal: no back pain, no neck pain, no joint pain, no stiffness and no myalgia Integumentary: no rash Neurologic: + unsteadiness, + generalized weakness and + dizziness; no gait abnormality and no falls Physical Exam 2 Constitutional: cooperative; no acute distress Neck: trachea midline, no thyromegaly Respiratory: normal respiratory effort Auscultation: lungs clear to auscultation bilaterally; no crackles, no rales, no rhonchi and no wheezes Cardiovascular: Rate/Rhythm: regular rate and regular rhythm Heart Sounds: normal S1 and normal S2 Gastrointestinal (Abdomen): Inspection/Auscultation: abdomen normal to inspection Percussion/Palpation: abdomen soft; abdomen nontender, no guarding, abdomen not rigid and no hepatosplenomegaly Skin: no rashes, warm and dry Genitourinary: + CVA tenderness Results & Data Results & Data ([facility]) Vital Signs (Past 12 Hours) Vital Signs Temp Pulse Pulse Resp BP BP Pulse Ox 07/05/21 15:15 68 16 97 07/05/21 15:00 67 28 H 96 07/05/21 14:45 68 16 96 07/05/21 14:30 65 22 96 07/05/21 14:27 64 12 91/52 L 97 07/05/21 14:15 63 19 94 07/05/21 14:12 63 12 88/51 L 97 07/05/21 14:00 64 19 95 07/05/21 13:45 65 18 95 07/05/21 13:30 65 19 91 07/05/21 13:15 65 19 94 07/05/21 13:01 90/51 L 07/05/21 13:00 64 17 96 07/05/21 12:45 62 20 95 07/05/21 12:30 67 67 14 99/56 L 97 07/05/21 12:00 66 19 97 07/05/21 11:30 69 22 97 07/05/21 11:22 97 07/05/21 11:21 69 16 97/57 L 97 07/05/21 11:01 74 20 07/05/21 10:42 76 16 82/52 L 98 07/05/21 10:38 74 16 85/55 L 97 07/05/21 10:32 76 22 96 07/05/21 10:30 77 16 67/48 L 95 07/05/21 10:25 75 16 85/49 L 97 07/05/21 10:16 36.2 C L 115 H 16 51/32 L 96 Laboratory Results Laboratory Results WBC 12.66 K/uL (4.8-10.8) H 07/05/21 10:30 RBC 4.22 M/uL (4.2-5.4) 07/05/21 10:30 Hgb 13.5 g/dL (12.0-16.0) 07/05/21 10:30 Hct 38.4 % (37-47) 07/05/21 10:30 MCV 91.0 fL (80-100) 07/05/21 10:30 MCH 32.0 pg (25-34) 07/05/21 10:30 MCHC 35.2 g/dL (32-36) 07/05/21 10:30 RDW Std Deviation 43.6 fL (36.4-46.3) 07/05/21 10:30 RDW Coeff of Pepe 13.1 % (11.5-14.5) 07/05/21 10:30 Plt Count 146 K/uL (130-400) 07/05/21 10:30 MPV 11.5 fL (7.4-10.4) H 07/05/21 10:30 Immature Gran % (Auto) 0.4 % 07/05/21 10:30 Neut % (Auto) 84.9 % 07/05/21 10:30 Lymph % (Auto) 5.5 % 07/05/21 10:30 [place] % (Auto) 9.0 % 07/05/21 10:30 Eos % (Auto) 0.1 % 07/05/21 10:30 Baso % (Auto) 0.1 % 07/05/21 10:30 Neut # (Auto) 10.76 K/uL (1.4-6.5) H 07/05/21 10:30 Lymph # (Auto) 0.69 K/uL (1.2-3.4) L 07/05/21 10:30 Cedar # (Auto) 1.14 K/uL (0.11-0.59) H 07/05/21 10:30 Eos # (Auto) 0.01 K/uL (0-0.5) 07/05/21 10:30 Baso # (Auto) 0.01 K/uL (0-0.2) 07/05/21 10:30 Immature Gran # (Auto) 0.05 K/uL (0.00-0.02) H 07/05/21 10:30 Sodium 131 mmol/L (136-145) L 07/05/21 10:30 Potassium 2.9 mmol/L (3.5-5.1) L 07/05/21 10:30 Chloride 97 mmol/L (98-107) L 07/05/21 10:30 Carbon Dioxide 23 mmol/L (21-32) 07/05/21 10:30 Anion Gap 11.0 (3-11) 07/05/21 10:30 BUN 16 mg/dl (7-18) 07/05/21 10:30 Creatinine 1.24 mg/dl (0.6-1.2) H 07/05/21 10:30 Est Cr Clr Drug Dosing Not Reportable 07/05/21 10:30 Est GFR ( Amer) 49.9 ml/min 07/05/21 10:30 Est GFR (Non-Af Amer) 43.1 ml/min 07/05/21 10:30 BUN/Creatinine Ratio 13.0 (10-20) 07/05/21 10:30 Glucose 120 mg/dl (70-99) H 07/05/21 10:30 Lactate 1.5 mmol/L (0.4-2.0) 07/05/21 11:16 Calcium 8.6 mg/dl (8.5-10.1) 07/05/21 10:30 Magnesium 2.0 mg/dl (1.8-2.4) 07/05/21 10:30 Total Bilirubin 1.5 mg/dl (0.2-1) H 07/05/21 10:30 AST 32 U/L (15-37) 07/05/21 10:30 ALT 18 U/L (12-78) 07/05/21 10:30 Alkaline Phosphatase 64 U/L (45-117) 07/05/21 10:30 Total Creatine Kinase 172 U/L (26-192) 07/05/21 10:30 Troponin I 0.200 ng/ml (0-0.045) H* 07/05/21 10:30 Total Protein 6.9 gm/dl (6.4-8.2) 07/05/21 10:30 Albumin 2.7 gm/dl (3.4-5.0) L 07/05/21 10:30 Globulin 4.2 gm/dl (2.5-4.0) H 07/05/21 10:30 Albumin/Globulin Ratio 0.6 (0.9-2) L 07/05/21 10:30 TSH 0.621 uIu/ml (0.300-4.500) 07/05/21 10:30 Urine Color Dark Yellow 07/05/21 11:05 Urine Appearance Turbid (Clear) A 07/05/21 11:05 Urine pH 6.0 (4.5-7.5) 07/05/21 11:05 Ur Specific [place] 1.013 (1.000-1.030) 07/05/21 11:05 Urine Protein 2+ (Negative) H 07/05/21 11:05 Urine Glucose (UA) Negative (Negative) 07/05/21 11:05 Urine Ketones Negative (Negative) 07/05/21 11:05 Urine Blood 3+ (Negative) H 07/05/21 11:05 Urine Nitrite Negative (Negative) 07/05/21 11:05 Urine Bilirubin 1+ (Negative) H 07/05/21 11:05 Urine Urobilinogen Negative (Negative) 07/05/21 11:05 Ur Leukocyte Esterase 3+ (Negative) H 07/05/21 11:05 Urine WBC (Auto) >30 /hpf (0-5) H 07/05/21 11:05 Urine RBC (Auto) >30 /hpf (0-4) H 07/05/21 11:05 U Hyaline Cast (Auto) 5-10 /lpf (0-5) H 07/05/21 11:05 U Epithel Cells (Auto) >30 /lpf (0-5) H 07/05/21 11:05 Urine Bacteria (Auto) 4+ (Negative) H 07/05/21 11:05 Urine Yeast Not Reportable 07/05/21 11:05 COVID-19 Eval Order Covid19 at [facility] 07/05/21 14:45 Impressions Abdomen/Pelvis CT 07/05/21 00:[address] WITH IV CONTRAST CT DOSE: 620.85 mGy.cm HISTORY: low abd pain, low back pain, low bp, n/v TECHNIQUE: Multiaxial CT images of the abdomen and pelvis were performed following the use of intravenous contrast. A dose lowering technique was utilized adhering to the principles of ALARA. COMPARISON STUDY: None. FINDINGS: Severe disc space narrowing at L5-S1. There is mild disc space narrowing at L4-5 grade 1 anterolisthesis. Moderate facet degenerative changes within the lower lumbar spine. No fractures within the visualized osseous structures. Mild dependent changes seen at the lung bases. No fractures within the visualized osseous structures. Trace bilateral pleural effusions are noted. Cholecystectomy. This may account for the mild bile duct dilatation with the common bile duct measuring up to 9 mm in diameter. Multiple hypodense lesions seen within the liver with the largest in the right hepatic lobe measuring 5.5 cm. These likely represent cysts. The main portal vein is patent. The pancreas, spleen, and adrenal glands are unremarkable. Moderate calcified plaque within the normal caliber abdominal aorta. No retroperitoneal lymphadenopathy. Mild heterogeneous enhancement within the bilateral kidneys with mild bilateral perinephric fat stranding and mild urothelial thickening seen within the renal pelvis sees and ureters. No ureteral stones. No hydronephrosis. There is also moderate bladder wall thickening. Findings favor a bilateral pyelonephritis/pyelitis with an associated cystitis. This can be correlated with urinalysis. There are 2 subcentimeter hypodense lesions within the right kidney. These are technically too small to characterize but favor cysts. Trace pelvic free fluid. Mild pelvic floor collapse. The uterus is unremarkable. There are are bilateral tubal ligation clips noted. Colonic diverticulosis. No evidence for acute diverticulitis. No bowel wall thickening or obstruction. Normal appendix. IMPRESSION: 1. Above findings likely represent a bilateral pyelonephritis/pyelitis with an associated cystitis. This can be correlated with urinalysis. 2. Trace bilateral pleural effusions. 3. Colonic diverticulosis. No evidence for acute diverticulitis. 4. Trace pelvic free fluid. 5. Additional findings as described above. ACT 112: Negative or not required by law. Electronically signed by: Lauri Piña M.D. 07/05/2021 12:56 PM Chest X-Ray 07/05/21 10:54 SINGLE VIEW CHEST CLINICAL HISTORY: Generalized weakness. FINDINGS: An AP, portable, upright chest radiograph is compared to study dated 11/14/2013 and correlated with chest CT dated 11/15/2013. The heart is top normal for projection noting atherosclerotic calcification of the thoracic aorta. Chronic interstitial thickening is similar to previous. There is mild bibasilar atelectasis. The lungs and pleural spaces are otherwise clear. No pneumothorax is seen. The skeletal structures are osteopenic. The bony thorax is grossly intact. Cholecystectomy clips are seen in the right upper quadrant. IMPRESSION: No active disease in the chest. ACT 112: Negative or not required by law. Electronically signed by: Dick Zhao M.D. 07/05/2021 11:15 AM PG Care Time/CCT Total # of Minutes Spent Total Time Spent with Patient: Total time spent is greater than 50% in coordination of care (as documented) at patient's floor/unit and/or counseling patient: Coding Level of Care Code 10955 Initial Inpt Care Lvl 3 Diagnoses Acute pyelonephritis N10 Septic shock A41.9; R65.21 Hyperlipidemia E78.5 Hypothyroidism associated with surgical procedure E89.0 Coronary artery disease I25.10 Anxiety F41.9 Elevated troponin R77.8
--- NOTE | 2021-07-05 15:35 | Electrocardiogram Report ---
Test Reason : Blood Pressure : / mmHG Vent. Rate : 070 BPM Atrial Rate : 070 BPM P-R Int : 126 ms QRS Dur : 070 ms QT Int : 434 ms P-R-T Axes : -09 028 088 degrees QTc Int : 468 ms Normal sinus rhythm Nonspecific ST and T wave abnormality Abnormal ECG When compared with ECG of 20-DEC-2015 06:49, Nonspecific T wave abnormality now evident in Anterior leads Confirmed by Jeromy Garcia ([id number]) on 07/05/2021 3:34:50 PM Referred By: Carlos Enrique Montana Confirmed By:Jeromy Garcia
[2021-07-05] MEDS ORDERED: POLYETHYLENE (MIRALAX) 17 GM PACK PO PRN (16:55)
[2021-07-05] MEDS ORDERED: LORazepam 0.5 MG TAB PO PRN (16:55)
[2021-07-05] MEDS ORDERED: NAPROXEN 250 MG TAB PO PRN (16:55)
[2021-07-05] MEDS ORDERED: ONDANSETRON INJ 2 MG/ML 2 ML VIAL IV PRN (16:55)
[2021-07-05] MEDS ORDERED: NAPROXEN 250 MG TAB ONE (17:28)
[2021-07-05] MEDS ORDERED: LORazepam 0.5 MG TAB ONE (17:29)
[2021-07-05] MEDS ORDERED: LORATADINE 10 MG TAB PO PRN (17:46)
[2021-07-05] MEDS: SODIUM CHLORIDE 0.9% 1000ML 1,000 ML IV SCH (18:54)
[2021-07-05] MEDS ORDERED: ACETAMINOPHEN 325 MG TAB PO PRN (19:05)
[2021-07-05] MEDS ORDERED: POTASSIUM CHLORIDE CRTAB 20 MEQ TABCR PO STA (19:05)
[2021-07-05] MEDS: ENOXAPARIN INJ 40 MG/0.4 ML SYR SQ SCH (21:39)
[2021-07-05] MEDS: ATORVASTATIN 40 MG TAB PO SCH (21:40)
[2021-07-05] MEDS: DORZOLAMIDE/TIMOLOL 22.3/6.8MG/ML 10 ML BTL OP SCH (21:41)
[2021-07-05] MEDS: DOCUSATE SODIUM 100 MG CAP PO SCH (21:41)
[2021-07-06] MEDS: SODIUM CHLORIDE 0.9% 1000ML 1,000 ML IV SCH ×3 (03:02→19:44)
[2021-07-06 05:51] LABS: Basophils # (auto) 0.02 K/uL (0-0.2); Basophils % (auto) 0.3 %; Eosinophils # (auto) 0.08 K/uL (0-0.5); Eosinophils % (auto) 1.1 %; Hematocrit (blood only) 31.3 % (37-47); Hemoglobin 10.7 g/dL (12.0-16.0); Immature Granulocytes # (auto) 0.02 K/uL (0.00-0.02); Immature Granulocytes % (auto) 0.3 %; Lymphocytes # (auto) 1.04 K/uL (1.2-3.4); Lymphocytes % (auto) 14.1 %; Mean Corpuscular Hgb Conc 34.2 g/dL (32-36); Mean Corpuscular Volume 90.7 fL (80-100); Mean Platelet Volume 10.3 fL (7.4-10.4); Monocytes # (auto) 0.91 K/uL (0.11-0.59); Monocytes % (auto) 12.3 %; Neutrophils # (auto) 5.33 K/uL (1.4-6.5); Neutrophils % (auto) 71.9 %; Platelet Count 100 K/uL (130-400); RDW Coefficient of Variation 13.4 % (11.5-14.5); RDW Standard Deviation 44.7 fL (36.4-46.3); Red Blood Count 3.45 M/uL (4.2-5.4)
[2021-07-06 06:26] LABS: BUN Creatinine Ratio 20.8 (10-20); Calcium 7.1 mg/dl (8.5-10.1); Creatinine Clr Calc Pharmacy 47.3 ml/min; Est GFR (Non-African American) 55.2 ml/min; Magnesium 1.9 mg/dl (1.8-2.4); Potassium 3.4 mmol/L (3.5-5.1)
[2021-07-06] MEDS ORDERED: LEVOTHYROXINE SODIUM 88 MCG TABLET PO SCH (06:30)
[2021-07-06 06:38] LABS: Troponin I 0.344 ng/ml (0-0.045)
[2021-07-06] MEDS: DORZOLAMIDE/TIMOLOL 22.3/6.8MG/ML 10 ML BTL OP SCH ×2 (09:35→19:42)
[2021-07-06] MEDS: ASPIRIN 81 MG ECTAB PO SCH (09:35)
[2021-07-06] MEDS: CHOLECALCIFEROL 1,000 UNITS 25 MCG TAB PO SCH (09:35)
--- NOTE | 2021-07-06 11:31 | Hospitalist Progress Note ---
Date of Service July 06, 2021 Assessment & Plan (1) Septic shock: Plan: Kylee Sue is a 75-year-old female with a past medical history of osteopenia, glaucoma, hypothyroidism, CAD with history of PCI, hypertension who presented with hypotension and who was admitted for septic shock 2/2 pyelonephritis Summary: Patient is greatly improving, anticipate 10-14-day course of therapy with antibiotics. Narrowed to Rocephin with anticipated conversion to cefdinir or as guided by sensitivities. Stable for downgrade. Septic shock 2/2 acute pyelonephritis Hypotensive to 50s/30s on admission Leukocytosis 12.66 down trended to 7.4 Lactic acid 1.5 Received NSS bolus x3, IVF M1 25 cc/h Placed on cefepime 2 g daily Creatinine 1.24 on admission down trended to 1.01 Troponin 0.2 peaked at 0.35, down trended to 0.34 insistent with demand ischemia UA infected appearing UC positive for gram-negative bacilli Blood cultures: Drawn 07/05/2021, no growth to date Covid negative CT abdomen/pelvis: Bilateral pyelonephritis/pyelitis with associated cystitis. Trace bilateral pleural effusion. Diverticulosis without evidence of diverticulitis. Trace pelvic free fluid. Chest x-ray: No acute disease HCTZ/losartan held for hypotension (2) Acute pyelonephritis: Plan: As noted in sepsis Narrowed from cefepime based on urine culture speciation/sensitivities. Anticipate 10-day course of antibiotics (3) Hyperlipidemia: Plan: Continue atorvastatin (4) Elevated troponin: Plan: Troponin peaked as noted in sepsis, down trended Consistent with demand ischemia EKG: Normal sinus rhythm, nonspecific ST/T wave abnormality no territorial ST elevations or depressions appreciated TTE: EF 55-60%, mild mitral regurg, mild concentric left ventricular hypertrophy, no wall motion abnormalities (5) Hypothyroidism associated with surgical procedure: Plan: Continue home levothyroxine alternating 75 mcg / 88 mcg every other day (6) Coronary artery disease: Plan: Continue aspirin 81 mg daily Losartan held Metoprolol held for hypotension, resume if remaining (7) Anxiety: Plan: Home lorazepam continued Admission and Anticipated Discharge Date Admission Date: July 05, 2021 Subjective Kylee Sue is seen at the bedside today. She is alert, well oriented, in no acute distress. She reports that she has chronic back pain which is been worse in the last couple of days with her kidney infection but feels much better than when she came in. She reports she had had fevers, chills and some sweats prior to admission and none this morning. She denies lightheadedness, dizziness and has been walking around on her own and able to use the restroom. Endorses dysuria, notes she did not initially go to the doctor because in her past UTIs she has had blood which was not present with her current infection. Reviewed medical plan with patient, no additional questions at time of bedside evaluation. Review of Systems Review of Systems: All systems reviewed & are unremarkable except as noted in Subjective Physical Exam Physical Exam: General: A&Ox3. NAD. Cooperative. HEENT: Atraumatic, normocephalic. Pulm: CTAB A&P. -wheezes, -rales, -rhonchi. Symmetrical chest rise. No increase work of breathing. No respiratory distress. Cardiac: RRR, -mrg. Radial pulses intact and symmetrical. Abdominal: Nontender, nondistended, soft. BS present. +Bilateral low back tenderness/? CVA Extremities: Warm, dry. Sensation to soft touch grossly intact. Moving all extremities equally. Results & Data Results & Data ([facility]) Vital Signs (Past 12 Hours) Vital Signs Temp Pulse Pulse Resp BP Pulse Ox 07/06/21 04:05 36.7 C 68 18 120/61 96 07/05/21 23:47 68 PG Care Time/CCT Total # of Minutes Spent Total Time Spent with Patient: Total time spent is greater than 50% in coordination of care (as documented) at patient's floor/unit and/or counseling patient: Coding Level of Care Code 70818 Subseq Hosp Care Lvl 3 Diagnoses Septic shock A41.9; R65.21 Acute pyelonephritis N10 Hyperlipidemia E78.5 Elevated troponin R77.8 Hypothyroidism associated with surgical procedure E89.0 Coronary artery disease I25.10 Anxiety F41.9
--- NOTE | 2021-07-06 13:07 | XCELERA ---
[id number]
[2021-07-06] MEDS ORDERED: CEFEPIME 2,000 MG in SYRINGE 0 ML IV SCH (14:00)
[2021-07-06] MEDS: ENOXAPARIN INJ 40 MG/0.4 ML SYR SQ SCH (17:47)
[2021-07-06] MEDS: DOCUSATE SODIUM 100 MG CAP PO SCH (19:40)
[2021-07-06] MEDS: ATORVASTATIN 40 MG TAB PO SCH (19:42)
[2021-07-06] MEDS ORDERED: POTASSIUM CHLORIDE CRTAB 20 MEQ TABCR PO SCH (21:00)
[2021-07-07] MEDS: SODIUM CHLORIDE 0.9% 1000ML 1,000 ML IV SCH ×2 (03:26→10:27)
[2021-07-07 05:34] LABS: Hematocrit (blood only) 27.8 % (37-47); Hemoglobin 9.6 g/dL (12.0-16.0); Mean Corpuscular Hemoglobin 31.1 pg (25-34); Mean Corpuscular Hgb Conc 34.5 g/dL (32-36); RDW Coefficient of Variation 13.4 % (11.5-14.5); RDW Standard Deviation 44.5 fL (36.4-46.3); Red Blood Count 3.09 M/uL (4.2-5.4)
[2021-07-07 05:55] LABS: Mean Platelet Volume 10.8 fL (7.4-10.4); Platelet Count 88 K/uL (130-400)
[2021-07-07 05:56] LABS: Basophils # (auto) 0.01 K/uL (0-0.2); Basophils % (auto) 0.2 %; Echinocytes 1+; Eosinophils # (auto) 0.11 K/uL (0-0.5); Eosinophils % (auto) 2.1 %; Immature Granulocytes # (auto) 0.01 K/uL (0.00-0.02); Immature Granulocytes % (auto) 0.2 %; Lymphocytes # (auto) 1.08 K/uL (1.2-3.4); Lymphocytes % (auto) 20.8 %; Monocytes # (auto) 0.73 K/uL (0.11-0.59); Neutrophils # (auto) 3.26 K/uL (1.4-6.5); Neutrophils % (auto) 62.7 %; Platelet Estimate Decreased (Normal)
[2021-07-07 06:04] LABS: Creatinine Clr Calc Pharmacy 70.3 ml/min; Est GFR (African American) 100.6 ml/min; Est GFR (Non-African American) 86.8 ml/min
[2021-07-07] MEDS ORDERED: LEVOTHYROXINE SODIUM 75 MCG TABLET PO SCH (06:30)
--- NOTE | 2021-07-07 08:13 | Discharge Summary ---
Date of Service July 07, 2021 Admission HPI Per Admitting Provider This is a 75-year-old female with past medical history of L4-L5 radiculopathy, hyperlipidemia, CAD that presents today complaining of back pain and dysuria. Patient is a somewhat difficult historian as she is somewhat divergent and the prior history. However, she does answer questions accurately. Patient has had a very long history of back pain, was in the lumbar region. She has had surgery on this before. She had problems that have been ongoing and affect her today. However, more recently over the past 3 days she has been having worsening pain along with lethargy. She notes some dysuria and increased frequency where she was urinating every hour. She noted some generalized weakness which seem to get worse. She was having some constipation and took a Dulcolax with a normal bowel movement. However, her other symptoms seem to worsen and her eventually pressured her to come to the emergency room for evaluation. In triage, her blood pressure was 51/32. She was hydrated aggressively normal saline and has had approximately 2.5 L prior to my arrival with her blood pressure now in the 90s. Patient is much more alert. She still has an appetite and she is eating peanut butter crackers with her . She denies any other symptoms such as chest pain, shortness of breath, palpitations. She does note some lightheadedness, especially when she was moving through the emergency room to her room. Work-up revealed UTI and CT scan was suspicious for pyelonephritis. Patient is now being admitted for further treatment of sepsis and urinary tract infection. Admission Exam Per Admitting Provider Constitutional: cooperative; no acute distress Neck: trachea midline, no thyromegaly Respiratory: normal respiratory effort Auscultation: lungs clear to auscultation bilaterally; no crackles, no rales, no rhonchi and no wheezes Cardiovascular: Rate/Rhythm: regular rate and regular rhythm Heart Sounds: normal S1 and normal S2 Gastrointestinal (Abdomen): Inspection/Auscultation: abdomen normal to inspection Percussion/Palpation: abdomen soft; abdomen nontender, no guarding, abdomen not rigid and no hepatosplenomegaly Skin: no rashes, warm and dry Genitourinary: + CVA tenderness Principal Diagnosis Sepsis 2/2 bilateral pyelo with cystitis Discharge Exam General: A&Ox3. NAD. Cooperative. HEENT: Atraumatic, normocephalic. Visual acuity and hearing grossly intact Pulm: CTAB A&P. -wheezes, -rales, -rhonchi. Symmetrical chest rise. No increase work of breathing. No respiratory distress. Cardiac: RRR, -mrg. Radial pulses intact and symmetrical. Abdominal: Nontender, nondistended, soft. BS present. Discharge Data Allergies Allergy/AdvReac Type Severity Reaction Status Date / Time duloxetine Allergy Mild "I was on Verified 07/05/21 10:34 an emotional roller coaster" oxycodone Allergy Mild nightmares Verified 07/05/21 10:34 turkey Allergy Mild nausea/vomi Verified 07/05/21 10:34 ting Consultations 07/05/21 14:44 ED Decision to Admit Stat Ordered Studies 07/05/21 CT abd pelvis IV con only Stat Hospital Course (1) Septic shock: Kylee Sue is a 75-year-old female with a past medical history of osteopenia, glaucoma, hypothyroidism, CAD with history of PCI, hypertension who presented with hypotension and who was admitted for septic shock 2/2 pyelonephritis To Do As Outpatient: 1. Complete 7 additional days of cefuroxime 250mg BID for E. coli pyelonephritis 2. Routine f/u with PCP with potassium recheck within ~1 week 3. If recurrent UTIs ?Uro eval retention/anatomic predispositions/reflux Septic shock 2/2 acute pyelonephritis Hypotensive to 50s/30s on admission Leukocytosis 12.66 down trended to 7.4 Lactic acid 1.5 Received NSS bolus x3, IVF M1 25 cc/h Placed on cefepime 2 g daily Creatinine 1.24 on admission down trended to 1.01 Troponin 0.2 peaked at 0.35, down trended to 0.34 insistent with demand ischemia UA infected appearing UC positive for E. coli epicillin resistant, Unasyn intermediate, otherwise sensitive to normal susceptibilities. Blood cultures: Drawn 07/05/2021, no growth to date Covid negative CT abdomen/pelvis: Bilateral pyelonephritis/pyelitis with associated cystitis. Trace bilateral pleural effusion. Diverticulosis without evidence of diverticulitis. Trace pelvic free fluid. Chest x-ray: No acute disease HCTZ/losartan held for hypotension Narrowed based on susceptibilities to cefuroxime 250 mg twice daily for 7 additional days to complete 10-day course of treatment. (2) Acute pyelonephritis: As noted in sepsis Narrowed from cefepime to cefuroxime based on urine culture speciation/sensitivities. (3) Hyperlipidemia: Continue atorvastatin (4) Elevated troponin: Troponin peaked as noted in sepsis, down trended Consistent with demand ischemia EKG: Normal sinus rhythm, nonspecific ST/T wave abnormality no territorial ST elevations or depressions appreciated TTE: EF 55-60%, mild mitral regurg, mild concentric left ventricular hypertrophy, no wall motion abnormalities (5) Hypothyroidism associated with surgical procedure: Continue home levothyroxine alternating 75 mcg / 88 mcg every other day (6) Coronary artery disease: Continue aspirin 81 mg daily Losartan held Metoprolol held for hypotension, resume if remaining (7) Anxiety: Home lorazepam continued Total Time Total Time Spent Total Time Spent (In Minutes): 35 including direct care and documentation Discharge Plan Discharge Items Patient Disposition: Home - Self-Care Reason For Visit: BACK PAIN Discharge Diagnosis: Sepsis 2/2 bilateral pyelonephritis Activity: Resume your previous activity Non-emergency contact: Primary Care Provider Call non-emergency contact if: you have any medication questions, your symptoms worsen, your pain is not controlled, your pain is worsening and you have a fever Follow-up/Referrals: Carlos Enrique Montana, [Primary Care Provider] - Diet: Heart Healthy Addtl Attending Provider Instructions: You are seen in the hospital for sepsis due to a urinary tract infection which had involved both kidneys. Your urine cultures showed that your infection was called by E. coli, your antibiotics were prescribed based on sensitivities which were available at time of discharge. Sepsis can place stress on the body, your heart markers call troponin were slightly elevated during admission. These down trended and an echo of your heart was normal, suggesting that this was due to stress from infection and was not a heart attack. Your imaging studies did not show any signs of abscess. You did clinically well with IV fluid hydration and antibiotics during admission, and were recommended for discharge home. You have been discharged on antibiotics as noted below. You have been prescribed an antibiotic cefuroxime. Please take cefuroxime 250 mg twice daily by mouth for 7 days to complete a total 10-day course of treatment. Your potassium was slightly low during admission. You received potassium supplementation and repletion during admission. Please have your potassium rechecked by your PCP within ~1 week at your followup appointment. A followup appointment is being scheduled for you with Dr. Montana. You should be seen seen within 1 week. You should receive a call to confirm this appointment. If you do not receive a call within 48 hours to confirm this appointment, or need to change this appointment, please call the provider's office at [phone]. If you develop any new or worsening symptoms including fever, chills, sweats, chest pain, chest pressure, difficulty breathing, uncontrolled nausea/vomiting, rash, wheezing, passing out or nearly passing out, bleeding, black/bloody bowel movements, or other new or concerning symptoms please call your primary care physician at [phone], or call 911 for re-evaluation in the emergency department if you are very concerned. Pending Studies at Discharge: No Stand-Alone Forms: My [facility] [employer], Smoking Cessation Medications and DC Order Prescriptions: New cefuroxime axetil 250 mg tablet 250 mg PO BID 7 Days Qty: 14 RF: 0 Continued metoprolol tartrate 25 mg tablet 25 mg PO BID Qty: 180 RF: 3 losartan 100 mg tablet 100 mg PO DAILY Qty: 90 RF: 3 levothyroxine 75 mcg tablet 75 mcg PO Q OTHER DAY Qty: 45 RF: 4 hydrochlorothiazide 12.5 mg tablet 12.5 mg PO DAILY Qty: 90 RF: 3 levothyroxine 88 mcg tablet 88 mcg PO Q OTHER DAY Qty: 45 RF: 1 desonide 0.05 % cream 1 appln TOP BID RF: 0 dorzolamide-timolol 22.3-6.8 mg/mL drops 1 drp OPHTHALMIC (EYE) BID RF: 0 lorazepam 0.5 mg tablet 0.5 mg PO DAILY PRN (Reason: Anxiety) RF: 0 aspirin 81 mg Tablet,Delayed Release (Dr/Ec) 81 mg PO QAM RF: 0 docusate sodium [Stool Softener] 100 mg Tablet 100 mg PO HS RF: 0 cholecalciferol (vitamin D3) [Vitamin D3] 2,000 unit Tablet 2,000 unit PO QAM RF: 0 loratadine 10 mg Capsule 10 mg PO DAILY PRN (Reason: Allergy Symptoms) RF: 0 atorvastatin 80 mg tablet 80 mg PO HS RF: 0 alendronate [Fosamax] 70 mg tablet 70 mg PO ELLIS RF: 0 Discharge Orders: Discharge Order (Routine); Ordered 07/07/21 Ordered By: Dheeraj Thomas Admission Data Admit Date/Time: 07/05/21 15:39 Attending Provider: Dheeraj Thomas Admit Provider: Puneet Loya Primary Care Provider: Carlos Enrique Montana Other Providers: Puneet Loya Coding Level of Care Code D/C DAY MANAGEMENT >30 MINS Diagnoses Septic shock A41.9; R65.21 Acute pyelonephritis N10 Hyperlipidemia E78.5 Elevated troponin R77.8 Hypothyroidism associated with surgical procedure E89.0 Coronary artery disease I25.10 Anxiety F41.9
[2021-07-07] MEDS ORDERED: POTASSIUM CHLORIDE CRTAB 20 MEQ TABCR PO STA (08:37)
[2021-07-07] MEDS ORDERED: cefTRIAXone SODIUM 1,000 MG in DEXTROSE 5% 50 ML IV SCH (09:00)
[2021-07-07] MEDS ORDERED: cefUROXime axetil 250 MG TABLET PO SCH (09:00)
[2021-07-07] MEDS: ASPIRIN 81 MG ECTAB PO SCH (09:01)
[2021-07-07] MEDS: CHOLECALCIFEROL 1,000 UNITS 25 MCG TAB PO SCH (09:02)
[2021-07-07] MEDS: DORZOLAMIDE/TIMOLOL 22.3/6.8MG/ML 10 ML BTL OP SCH (09:03)
[2021-07-07] MEDS: POTASSIUM CHLORIDE / WTR 10 MEQ/100 ML PLCT IV SCH ×2 (09:04→10:26)
--- NOTE | 2021-07-07 16:20 | Electrocardiogram Report ---
Test Reason : Blood Pressure : / mmHG Vent. Rate : 063 BPM Atrial Rate : 063 BPM P-R Int : 102 ms QRS Dur : 068 ms QT Int : 448 ms P-R-T Axes : 012 027 060 degrees QTc Int : 458 ms Sinus rhythm with short AK Otherwise normal ECG When compared with ECG of 05-JUL-2021 11:19, Nonspecific T wave abnormality, improved in Lateral leads Confirmed by iDma Alcantara ([id number]) on 07/07/2021 4:20:07 PM Referred By: Carlos Enrique Montana Confirmed By:Dima Alcantara
--- NOTE | 2021-07-07 17:01 | Electrocardiogram Report ---
Test Reason : Blood Pressure : / mmHG Vent. Rate : 078 BPM Atrial Rate : 078 BPM P-R Int : 100 ms QRS Dur : 070 ms QT Int : 430 ms P-R-T Axes : 038 031 055 degrees QTc Int : 490 ms Sinus rhythm with short WA with Premature atrial complexes Prolonged QT Abnormal ECG When compared with ECG of 06-JUL-2021 04:28, Premature atrial complexes are now Present Confirmed by Dima Alcantara ([id number]) on 07/07/2021 5:00:53 PM Referred By: Carlos Enrique Montana Confirmed By:Dima Alcantara
== END 2021-07-07 10:40 | disposition home or self-care (01) | DRG 871 ==
LOC: ED 10:10 → EDINP 15:39 → SUATTDRO 15:39 → 1E 18:17

== ENCOUNTER 2022-04-28 19:46 | Inpatient (IN) ==
[2022-04-28 20:20] LABS: Basophils # (auto) 0.04 K/uL (0-0.2); Basophils % (auto) 0.9 %; Eosinophils # (auto) 0.21 K/uL (0-0.50); Eosinophils % (auto) 4.7 %; Hemoglobin 13.2 g/dl (12.0-16.0); Lymphocytes # (auto) 2.09 K/uL (1.2-3.4); Lymphocytes % (auto) 46.9 %; Mean Corpuscular Hgb Conc 34.7 g/dL (32.0-36.0); Mean Corpuscular Volume 89.2 fL (80.0-100.0); Mean Platelet Volume 10.5 fL (9.4-12.3); Monocytes # (auto) 0.67 K/uL (0.24-0.82); Neutrophils # (auto) 1.45 K/uL (1.4-6.5); Neutrophils % (auto) 32.5 %; Platelet Count 145 K/uL (130-400); RDW Coefficient of Variation 12.5 % (11.5-14.5); RDW Standard Deviation 41.1 fL (36.4-46.3); Red Blood Count 4.26 M/uL (3.93-5.22); White Blood Count 4.46 K/ul (4.8-10.8)
[2022-04-28 20:35] LABS: Partial Thromboplastin Ratio 1.1; Partial Thromboplastin Time 29.9 Seconds (21.0-31.0); Prothrombin Time 10.9 Seconds (9.0-12.0)
[2022-04-28 20:51] LABS: Albumin Globulin Ratio 1.3 (0.9-2); Albumin Level 3.8 gm/dl (3.4-5.0); BUN Creatinine Ratio 11.9 (10-20); Bilirubin,Total 0.5 mg/dl (0.2-1.0); Calcium 8.8 mg/dl (8.5-10.1); Creatinine Clr Calc Pharmacy 59.8 ml/min; Est GFR (African American) 79.4 ml/min; Est GFR (Non-African American) 68.5 ml/min; Globulin 2.9 gm/dl (2.5-4.0); Potassium 3.8 mmol/L (3.5-5.1); Total Protein 6.7 gm/dl (6.0-8.3)
[2022-04-28 21:01] LABS: Troponin I High Sensitivity 57.1 pg/ml (0-14)
--- NOTE | 2022-04-28 21:07 | XRay Report ---
XR chest 1V portable HISTORY: 76 years-old Female Chest Pain . Acute atypical chest pain COMPARISON: Chest radiograph 07/27/2021 TECHNIQUE: Portable AP view of the chest FINDINGS: Cardiomediastinal and hilar silhouettes are unchanged. Coronary arterial stent. Atherosclerosis of th e aorta. No pneumothorax, pleural effusion, airspace consolidation or overt pulmonary edema. Degenera tive changes of the shoulders and spine. IMPRESSION: No acute process. ACT 112: Negative or not required by law. The above report was generated using voice recognition software. It may contain grammatical, syntax o r spelling errors. Electronically signed by: Arnaldo Barahona M.D. 04/28/2022 9:05 PM
[2022-04-28] MEDS ORDERED: ASPIRIN CHEW 324 MG PO STA (21:56)
[2022-04-28] MEDS ORDERED: ONDANSETRON INJ 2 MG/ML 2 ML VIAL IV STA (21:56)
[2022-04-28] MEDS ORDERED: MoRPHine SULFATE 2 MG/ML CARP IV PRN (22:45)
[2022-04-28] MEDS ORDERED: ONDANSETRON INJ 2 MG/ML 2 ML VIAL IV PRN (22:45)
[2022-04-28] MEDS ORDERED: ALUMINUM/MAGNESIUM SUSP 30 ML UDC PO PRN (22:45)
[2022-04-28] MEDS ORDERED: ACETAMINOPHEN 325 MG TAB PO PRN (22:45)
[2022-04-28] MEDS ORDERED: MoRPHine SULFATE 2 MG/ML CARP IV STA (22:52)
--- NOTE | 2022-04-28 22:53 | History & Physical Report ---
Date of Service April 28, 2022 Assessment & Plan (1) Chest pain: Plan: 76yo F with PMH of CAD s/p PCI of LAD and OM2 (Oct 2010), Graves dz s/p total thyroidectomy in 1985, HLD, HTN, OA, PE in 2012, DDD s/p L4-5 discetomy, parathyroidectomy whio presented due to a few days of chest heaviness and pressure. Chest pain With EKG changes and troponin elevation to 57.1 Trend troponins every 6 hours Received ASA 324 mg x 1 in ED Order morphine 2 mg IV x1 every 2 hours as needed for chest pain thereafter but Start heparin drip - patient had not taken evening dose of apixaban, will continue to hold at this time Cardiology consult Admit to PCU for cardiac monitoring Continue metoprolol COVID-19 Diagnosed 8 days ago Respiratory symptoms improving and she is saturating adequately on room air No current indication for dexamethasone Tested negative on admission COVID isolation precautions CAD/hypertension/hyperlipidemia Holding home metoprolol, losartan, HCTZ, atorvastatin until not n.p.o. Received aspirin 324 mg in ED, hold home baby aspirin for now Paroxysmal atrial fibrillation Holding Eliquis for now, start heparin drip as above Hypothyroidism Hold home doses of levothyroxine 75 mcg and 88 mcg on alternating days until not n.p.o. DVT prophylaxis: Heparin drip as above FEN GI: N.p.o., famotidine 20 mg IV daily for GI prophylaxis Dispo: Admit to PCU for cardiac monitoring CODE STATUS: DNR/DNI (2) Coronary artery disease: (3) Hypertension: (4) Hyperlipidemia: (5) Anxiety: (6) Hypothyroidism associated with surgical procedure: (7) Presence of drug-eluting stent in left circumflex coronary artery: History of Present Illness Primary Care Provider: Carlos Enrique Montana DO 76yo F with PMH of CAD s/p PCI of LAD and OM2 (Oct 2010), Graves dz s/p total thyroidectomy in 1985, HLD, HTN, OA, PE in 2012, DDD s/p L4-5 discetomy, parathyroidectomy whio presented due to a few days of chest heaviness and pressure. Patient was diagnosed with COVID-19 8 days ago. She states she had symptoms including cough and congestion muscle aches and fatigue. Patient states a few days into her illness, she started to notice some chest pressure. Initially, she believed it to be related to nausea and vomiting, which she did have with her COVID infection, and as such was taking some antiemetics to try to remedy this. She also says she noticed that with the chest pressure, she was also having some bilateral shoulder pain. As her respiratory symptoms started to improve and subside, she says that her chest pressure and shoulder pain remained. This morning, she noticed that she had some high blood pressure readings up to the 190s over 110s. She decided to wait some time and recheck at which point her blood pressure remained significantly elevated. At that time, the patient called her daughter to inform her that she was not feeling well and they decided to bring her in for evaluation. In the ED, patient had an EKG done, which showed some ST/T wave changes evident in leads V1 and V2. Her initial high-sensitivity troponin was elevated to 57.1. Chest x-ray showed no acute cardiorespiratory abnormalities. She received aspirin 324 mg x 1 and admission was recommended by ED provider. Upon my evaluation, patient continued to report some dull chest pressure. With regards to her COVID-19, her symptoms have been overall improving, with her congestion decreasing significantly, and her cough occurring less often. Denies shortness of breath, palpitations, nausea, vomiting, fever, chills, swelling, rashes, headache, dizziness. Allergies Allergy/AdvReac Type Severity Reaction Status Date / Time duloxetine Allergy Mild "I was on Verified 04/28/22 22:54 an emotional roller coaster" oxycodone Allergy Mild nightmares Verified 04/28/22 22:54 turkey Allergy Mild nausea/vomi Verified 04/28/22 22:54 ting Home Medications Medication Instructions Recorded Confirmed Type aspirin 81 mg tablet,delayed 81 mg PO QAM 12/19/18 04/28/22 History release cholecalciferol (vitamin D3) 50 2,000 unit PO QAM 12/19/18 04/28/22 History mcg (2,000 unit) tablet (Vitamin D3) docusate sodium 100 mg tablet 100 mg PO HS 12/19/18 04/28/22 History (Stool Softener) loratadine 10 mg capsule 10 mg PO DAILY PRN Allergy Symptoms 12/19/18 04/28/22 History desonide 0.05 % topical cream 1 appln topical BID 07/10/19 04/28/22 History dorzolamide 22.3 mg-timolol 6.8 1 drp ophthalmic (eye) BID 07/10/19 04/28/22 History mg/mL eye drops lorazepam 0.5 mg tablet 0.5 mg PO DAILY PRN Anxiety 07/10/19 04/28/22 History metoprolol tartrate 25 mg tablet 25 mg PO BID #180 tabs 07/11/21 04/28/22 Rx apixaban 5 mg tablet (Eliquis) 5 mg PO BID 30 days #180 tabs 07/28/21 04/28/22 Rx atorvastatin 80 mg tablet 80 mg PO HS #90 tabs 08/23/21 04/28/22 Rx losartan 100 mg tablet 100 mg PO DAILY #90 tabs 09/05/21 04/28/22 Rx alendronate 70 mg tablet (Fosamax) 70 mg PO ELLIS #30 tabs 11/14/21 04/28/22 Rx hydrochlorothiazide 12.5 mg tablet 12.5 mg PO DAILY #90 tabs 01/05/22 04/28/22 Rx diclofenac sodium 1 % topical gel 2 g topical QID PRN pain, moderate 01/31/22 04/28/22 Rx #100 grams ondansetron 4 mg disintegrating 4 mg PO Q8H PRN nausea and 04/24/22 04/28/22 Rx tablet vomiting #10 tabs levothyroxine 75 mcg tablet 75 mcg PO Q2D 04/28/22 04/28/22 History levothyroxine 88 mcg tablet 88 mcg PO Q2D 04/28/22 04/28/22 History Past Med/Surg History Medical History (Updated 04/29/22 @ 13:18 by Yung Goodman MD) Anxiety Cervical somatic dysfunction Chest pain (04/28/22) Degeneration of 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 Degenerative disc disease Dyslipidemia Elevated liver enzymes Elevated troponin I level Glaucoma History of Graves' disease Hyperlipidemia Hypertension Hypokalemia Hypothyroidism Migraine Osteoarthritis Pulmonary embolism Pulmonary embolism 2012--unknown origin Segmental and somatic dysfunction of rib cage Segmental and somatic dysfunction of thoracic region Segmental and somatic dysfunction of upper extremity Septic shock Urinary frequency UTI (urinary tract infection) Vitamin D insufficiency Surgical History History of bilateral tubal ligation History of cardiac cath 10/2010 x2 History of cholecystectomy History of colonoscopy History of esophagogastroduodenoscopy (EGD) History of heart artery stent 10/2010 2 stents History of lumbar discectomy x2 L4-L5 History of parathyroidectomy with thyroidectomy History of thyroidectomy, total 1986--enlarged thyroid, Grave's Disease History of tooth extraction upper teeth removed Family History Grandmother (Maternal) Family history of diabetes mellitus Grandmother (Paternal) Family history of diabetes mellitus Father Myocardial infarction Other No family history of adverse response to anesthesia Denies family history of Ovarian cancer Prostate cancer Breast cancer Colorectal cancer Social History Smoking Status: Former smoker Tobacco Type: Cigarettes Age Started Using Tobacco: 20; Age Quit Using Tobacco: 69; packs per day: 0.5; Years Smoked: 49; Number of Years Since Quit: 4; Second Hand Exposure: No; Do You Dip or Chew Tobacco: No; Tobacco Cessation Education Requested by Patient: No Hx Alcohol Use: Yes Alcohol type: wine Alcohol Intake Frequency: 2-4 x/Month Hx Substance Use: No Preferred Language: Bulgarian Communication Ability: Effective Visual Impairment: No Limitations Hearing Ability: Use of Hearing Aid Fruit And Vegetable Classer Required: No Beliefs That Will Affect Care: None marital status: Current Living Situation: Spouse Current Living Situation Comment: lives w/ current occupational status: retired How many Children do You have: 1 Other Information That Helps Us Care for You: No Feels Safe at Home: Yes Safety Concerns: Feels Safe At This Time Childhood Exposure to Second-Hand Smoke: Yes caffeine: Yes during the past year weight has: remained stable Dental Care, Regularly: Yes Physical Activity Frequency: 1-2 Times per Week Seatbelt Use: always Sunscreen Use: Yes Assistive Devices: Denture - Upper, Glasses and Hearing Aid - Bilateral Assistive Devices Comment: no bottom teeth Review of Systems Review of Systems: Per HPI Physical Exam Physical Exam: GENERAL: A&Ox3. NAD. HEENT: PERRL, EOMI. Moist mucous membranes. NECK: No JVD. No lymphadenopathy. CHEST/LUNGS: CTAB A/P. No crackles, wheezes, rales, rhonchi. HEART: RRR. No m/g/r. No carotid bruits. ABDOMEN: NT/ND, soft. BS+ x4 EXTREMITIES: No cyanosis, no clubbing, no edema SKIN: Warm and dry. No rashes or lesions. PSYCHIATRIC: Euthymic affect, no SI, no pressured speech, no hallucinations NEUROLOGIC: No FND. CN II-XII grossly intact. Results & Data Results & Data ([facility]) Vital Signs (Past 12 Hours) Vital Signs Temp Pulse Resp BP Pulse Ox O2 Del Method 04/28/22 20:46 95 Room Air 04/28/22 19:55 36.4 C L 71 22 148/62 H 98 Room Air Supervising Physician Co-Signing Physician Notes Attending addendum: I have physically seen this patient, have supervised the medical residents activities, and agree with the H&P unless as otherwise noted. Assessment and Plan: Elevated troponin/CAD/hypertension/paroxysmal atrial fibrillation/history of LAD stent- The patient will be admitted to telemetry for serial cardiac enzymes, serial EKG's, cardiac rhythm monitoring and a 2-D echocardiogram with Dopplers. Initial troponin 57.1 Status post aspirin 324 mg in ED Aspirin 81 mg every morning Continue metoprolol tartrate, losartan and HCTZ Change Eliquis to heparin drip overnight Consult cardiology COVID-19 infection- Initially diagnosed 8 days ago minimal respiratory symptoms COVID-19 testing negative this admission in the ED No treatment needed Hyperlipidemia- Continue atorvastatin 80 mg at bedtime Check a fasting lipid panel Remaining orders and notations as noted Resident Activity Tracking Resident Involvement: Resident Care Provided Care Provided: Adult Hospital Medicine
--- NOTE | 2022-04-28 23:08 | Emergency Department Note ---
History of Present Illness General Chief Complaint: Hypertension Stated Complaint: COVID+04/20, HIGH BLOOD PRESSURE,HX CARDIAC Time Seen by Provider: 04/28/22 21:36 History of Present Illness Provider Complaint: chest pain Onset (ago): week(s) Onset (Weeks): 1 Duration: intermittent Onset: during exertion Pain Location: substernal Severity: moderate Quality: + aching, + heaviness, + sharp and + dull Relieved By: + nothing Exacerbated By: + nothing Context: + recent illness (Patient diagnosed with COVID 1 week ago); no recent surgery or no trauma/injury Associated symptoms: + nausea, + vomiting, + dyspnea and + cough Home Medications Medication Instructions Recorded Confirmed Type aspirin 81 mg tablet,delayed 81 mg PO QAM 12/19/18 04/28/22 History release cholecalciferol (vitamin D3) 50 2,000 unit PO QAM 12/19/18 04/28/22 History mcg (2,000 unit) tablet (Vitamin D3) docusate sodium 100 mg tablet 100 mg PO HS 12/19/18 04/28/22 History (Stool Softener) loratadine 10 mg capsule 10 mg PO DAILY PRN Allergy Symptoms 12/19/18 04/28/22 History desonide 0.05 % topical cream 1 appln topical BID 07/10/19 04/28/22 History dorzolamide 22.3 mg-timolol 6.8 1 drp ophthalmic (eye) BID 07/10/19 04/28/22 History mg/mL eye drops lorazepam 0.5 mg tablet 0.5 mg PO DAILY PRN Anxiety 07/10/19 04/28/22 History metoprolol tartrate 25 mg tablet 25 mg PO BID #180 tabs 07/11/21 04/28/22 Rx apixaban 5 mg tablet (Eliquis) 5 mg PO BID 30 days #180 tabs 07/28/21 04/28/22 Rx atorvastatin 80 mg tablet 80 mg PO HS #90 tabs 08/23/21 04/28/22 Rx losartan 100 mg tablet 100 mg PO DAILY #90 tabs 09/05/21 04/28/22 Rx alendronate 70 mg tablet (Fosamax) 70 mg PO ELLIS #30 tabs 11/14/21 04/28/22 Rx hydrochlorothiazide 12.5 mg tablet 12.5 mg PO DAILY #90 tabs 01/05/22 04/28/22 Rx diclofenac sodium 1 % topical gel 2 g topical QID PRN pain, moderate 01/31/22 04/28/22 Rx #100 grams ondansetron 4 mg disintegrating 4 mg PO Q8H PRN nausea and 04/24/22 04/28/22 Rx tablet vomiting #10 tabs levothyroxine 75 mcg tablet 75 mcg PO Q2D 04/28/22 04/28/22 History levothyroxine 88 mcg tablet 88 mcg PO Q2D 04/28/22 04/28/22 History Allergies Allergy/AdvReac Type Severity Reaction Status Date / Time duloxetine Allergy Mild "I was on Verified 04/28/22 22:54 an emotional roller coaster" oxycodone Allergy Mild nightmares Verified 04/28/22 22:54 turkey Allergy Mild nausea/vomi Verified 04/28/22 22:54 ting Past Med/Surg History Medical History (Updated 04/29/22 @ 00:59 by Avel Fish) Anxiety Chest pain (04/28/22) Degenerative disc disease Elevated troponin I level Glaucoma History of Graves' disease Hyperlipidemia Hypertension Hypokalemia Hypothyroidism Migraine Osteoarthritis Pulmonary embolism Pulmonary embolism 2012--unknown origin Septic shock Urinary frequency UTI (urinary tract infection) Surgical History History of bilateral tubal ligation History of cardiac cath 10/2010 x2 History of cholecystectomy History of colonoscopy History of esophagogastroduodenoscopy (EGD) History of heart artery stent 10/2010 2 stents History of lumbar discectomy x2 L4-L5 History of parathyroidectomy with thyroidectomy History of thyroidectomy, total 1986--enlarged thyroid, Grave's Disease History of tooth extraction upper teeth removed Family History Grandmother (Maternal) Family history of diabetes mellitus Grandmother (Paternal) Family history of diabetes mellitus Father Myocardial infarction Other No family history of adverse response to anesthesia Denies family history of Ovarian cancer Prostate cancer Breast cancer Colorectal cancer Social History Smoking Status: Former smoker Tobacco Type: Cigarettes Age Started Using Tobacco: 20; Age Quit Using Tobacco: 69; packs per day: 0.5; Years Smoked: 49; Number of Years Since Quit: 4; Second Hand Exposure: No ( smokes); Hx Alcohol Use: Yes Alcohol type: wine Alcohol Intake Frequency: 2-4 x/Month Hx Substance Use: No Preferred Language: Amharic Communication Ability: Effective Visual Impairment: No Limitations Hearing Ability: Use of 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 Aid 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 Retail Required: No Beliefs That Will Affect Care: Mandaeism Mandaeism Beliefs: congregation marital status: Current Living Situation: Spouse Current Living Situation Comment: lives w/ current occupational status: retired How many Children do You have: 1 Feels Safe at Home: Yes Childhood Exposure to Second-Hand Smoke: Yes caffeine: Yes during the past year weight has: remained stable Dental Care, Regularly: Yes Physical Activity Frequency: 1-2 Times per Week Seatbelt Use: always Sunscreen Use: Yes Assistive Devices: Denture - Upper, Glasses and Hearing Aid - Bilateral Review of Systems A total of 10 systems reviewed and were otherwise negative Physical Exam Vital Signs Vital Signs - 24 hr 04/28/22 19:55 04/28/22 20:45 04/28/22 20:46 Temperature 36.4 C L Temperature Source Temporal Artery Scan Pulse Rate 71 Pulse Rate from SpO2 Sensor Respiratory Rate 22 Respiratory Effort / Characteristics Non-Labored Spontaneous Non-Labored Respiratory Depth Normal Normal Blood Pressure 148/62 H Blood Pressure Mean 90 Pulse Oximetry 98 95 Oxygen Delivery Method Room Air Room Air Sepsis New/Unexplained Change in Mental Status N/A Sepsis Action Taken by Nursing No Action Required 04/28/22 22:00 04/28/22 20:40 04/28/22 20:50 Temperature Temperature Source Pulse Rate 62 59 L Pulse Rate from SpO2 Sensor 60 60 Respiratory Rate 26 H 22 Respiratory Effort / Characteristics Non-Labored Respiratory Depth Normal Blood Pressure Blood Pressure Mean Pulse Oximetry 99 96 Oxygen Delivery Method Sepsis New/Unexplained Change in Mental Status Sepsis Action Taken by Nursing 04/28/22 21:00 04/28/22 21:10 04/28/22 21:20 Temperature Temperature Source Pulse Rate 62 61 66 Pulse Rate from SpO2 Sensor 61 61 60 Respiratory Rate 24 32 H 21 Respiratory Effort / Characteristics Respiratory Depth Blood Pressure Blood Pressure Mean Pulse Oximetry 99 97 97 Oxygen Delivery Method Sepsis New/Unexplained Change in Mental Status Sepsis Action Taken by Nursing 04/28/22 21:34 04/28/22 21:40 04/28/22 21:50 Temperature Temperature Source Pulse Rate 71 61 65 Pulse Rate from SpO2 Sensor 71 61 62 Respiratory Rate 20 19 23 Respiratory Effort / Characteristics Respiratory Depth Blood Pressure Blood Pressure Mean Pulse Oximetry 98 98 100 Oxygen Delivery Method Sepsis New/Unexplained Change in Mental Status Sepsis Action Taken by Nursing 04/28/22 22:00 04/28/22 22:09 04/28/22 22:09 Temperature Temperature Source Pulse Rate 63 73 Pulse Rate from SpO2 Sensor 62 68 Respiratory Rate 18 17 Respiratory Effort / Characteristics Respiratory Depth Blood Pressure 187/116 H Blood Pressure Mean 139 Pulse Oximetry 97 95 Oxygen Delivery Method Sepsis New/Unexplained Change in Mental Status Sepsis Action Taken by Nursing 04/28/22 22:10 04/28/22 22:20 04/28/22 22:30 Temperature Temperature Source Pulse Rate 76 61 65 Pulse Rate from SpO2 Sensor 69 61 65 Respiratory Rate 17 16 20 Respiratory Effort / Characteristics Respiratory Depth Blood Pressure Blood Pressure Mean Pulse Oximetry 96 97 97 Oxygen Delivery Method Sepsis New/Unexplained Change in Mental Status Sepsis Action Taken by Nursing 04/28/22 22:40 04/28/22 22:50 04/29/22 00:00 Temperature Temperature Source Pulse Rate 64 63 Pulse Rate from SpO2 Sensor 65 64 Respiratory Rate 16 17 Respiratory Effort / Characteristics Non-Labored Respiratory Depth Normal Blood Pressure Blood Pressure Mean Pulse Oximetry 95 97 Oxygen Delivery Method Sepsis New/Unexplained Change in Mental Status Sepsis Action Taken by Nursing Physical Exam GENERAL: She is oriented to person, place, and time. She appears well-developed and well-nourished. She does not appear distressed. HENT: Exam performed. -Head: Normocephalic and atraumatic. -Right Ear: External ear normal. No mastoid tenderness. -Left Ear: External ear normal. No mastoid tenderness. -Mouth/Throat: The oropharynx is clear and moist. No trismus in the jaw. No dental abscesses or uvula swelling. No oropharyngeal exudate or tonsillar abscesses. EYES: Conjunctivae and EOM are normal. Pupils are equal, round, and reactive to light. Right eye exhibits no discharge. Left eye exhibits no discharge. No scleral icterus. NECK: Normal range of motion. Neck supple. No JVD present. No spinous process tenderness present. No carotid bruit present. No rigidity. No tracheal deviation and normal range of motion present. No Brudzinski's sign and no Kernig's sign noted. CV: Normal rate, regular rhythm, normal heart sounds and intact distal pulses. There is no peripheral edema. Palpable radial pulses bue. PULM/CHEST: Effort normal and breath sounds normal. No respiratory distress. No stridor. She has no wheezes. She has no rales. -Chest Wall: She exhibits no tenderness. ABD: The abdomen is soft. Bowel sounds are normal. She has no distension. No mass is present. There is no tenderness. There is no rebound, no guarding, no Jimenez's sign and no tenderness at McBurney's point. Rovsig negative MUSC/SKEL: Normal range of motion. There is no peripheral edema, tenderness or deformity. LYMPH: No cervical adenopathy. NEURO: She is alert and oriented to person, place, and time. She has normal strength. No cranial nerve deficit or sensory deficit. Coordination and gait normal. GCS eye subscore is 4. GCS verbal subscore is 5. GCS motor subscore is 6. Cerebellar tests wnl. SKIN: Skin is warm and dry. She is not diaphoretic. PSYCH: She has a normal mood and affect. Behavior is normal. Judgment and thought content normal. Course Course 2135: The patient was evaluated in room A4. A complete history and physical exam was performed Administered Medications Sodium Chloride (Nss 1000ml) 1,000 mls @ 80 mls/hr IV .[id number] [facility] Stop: 05/28/22 22:59 Last Admin: 04/28/22 23:23 Dose: 80 mls/hr Documented By: KALEN Heparin Sodium/Dextrose (Heparin Sodium/Dextrose) 25,000 units in 500 mls @ 23 mls/hr IV .[id number] [facility]; Protocol Stop: 05/28/22 23:14 Last Admin: 04/28/22 23:31 Dose: 1,150 units/hr, 23 mls/hr Documented By: KALEN Co-signed By: JENNIFER Discontinued Medications Aspirin (Aspirin Chew 324 Mg) 324 mg PO NOW STA Stop: 04/28/22 21:57 Last Admin: 04/28/22 22:12 Dose: 324 mg Documented By: KALEN Morphine Sulfate (Morphine Sulfate 2 Mg/Ml Carp) 2 mg IV NOW STA Stop: 04/28/22 22:53 Last Admin: 04/28/22 23:23 Dose: 2 mg Documented By: KALEN Ondansetron HCl (Ondansetron Inj 2 Mg/Ml 2 Ml Vial) 4 mg IV NOW STA Stop: 04/28/22 21:57 Last Admin: 04/28/22 22:12 Dose: 4 mg Documented By: KALEN Medical Decision Making Laboratory Data Result diagrams: 04/28/22 20:05 04/28/22 20:05 Labs: Lab Results 04/28/22 04/28/22 04/28/22 Range/Units 20:05 20:05 20:05 WBC 4.46 L (4.8-10.8) K/ul RBC 4.26 (3.93-5.22) M/uL Hgb 13.2 (12.0-16.0) g/dl Hct 38.0 (34.1-44.9) % MCV 89.2 (80.0-100.0) fL MCH 31.0 (25.0-34.0) pg MCHC 34.7 (32.0-36.0) g/dL RDW Std Deviation 41.1 (36.4-46.3) fL RDW Coeff of Pepe 12.5 (11.5-14.5) % Plt Count 145 (130-400) K/uL MPV 10.5 (9.4-12.3) fL Immature Gran % (Auto) 0.0 % Neut % (Auto) 32.5 % Lymph % (Auto) 46.9 % Cowley % (Auto) 15.0 % Eos % (Auto) 4.7 % Baso % (Auto) 0.9 % Neut # (Auto) 1.45 (1.4-6.5) K/uL Lymph # (Auto) 2.09 (1.2-3.4) K/uL Cowley # (Auto) 0.67 (0.24-0.82) K/uL Eos # (Auto) 0.21 (0-0.50) K/uL Baso # (Auto) 0.04 (0-0.2) K/uL Immature Gran # (Auto) 0.00 (0.00-0.02) K/uL PT 10.9 (9.0-12.0) Seconds INR 1.0 (0.9-1.1) APTT 29.9 (21.0-31.0) Seconds PTT Ratio 1.1 Sodium 132 L (136-145) mmol/L Potassium 3.8 (3.5-5.1) mmol/L Chloride 99 (98-107) mmol/L Carbon Dioxide 26 (21-32) mmol/L Anion Gap 7 (3-11) BUN 10 (6-23) mg/dl Creatinine 0.84 (0.6-1.2) mg/dl Est Cr Clr Drug Dosing 59.8 ml/min Est GFR ( Amer) 79.4 ml/min Est GFR (Non-Af Amer) 68.5 ml/min BUN/Creatinine Ratio 11.9 (10-20) Glucose 100 H (70-99(Fasting)) mg/dl Calcium 8.8 (8.5-10.1) mg/dl Total Bilirubin 0.5 (0.2-1.0) mg/dl AST 37 (13-39) U/L ALT 24 (7-52) U/L Alkaline Phosphatase 74 (34-104) U/L Troponin I High Sens 57.1 H* (0-14) pg/ml Total Protein 6.7 (6.0-8.3) gm/dl Albumin 3.8 (3.4-5.0) gm/dl Globulin 2.9 (2.5-4.0) gm/dl Albumin/Globulin Ratio 1.3 (0.9-2) SARS-CoV-2, RNA, NAAT (NEGATIVE) 04/28/22 04/28/22 Range/Units 22:08 22:37 WBC (4.8-10.8) K/ul RBC (3.93-5.22) M/uL Hgb (12.0-16.0) g/dl Hct (34.1-44.9) % MCV (80.0-100.0) fL MCH (25.0-34.0) pg MCHC (32.0-36.0) g/dL RDW Std Deviation (36.4-46.3) fL RDW Coeff of Pepe (11.5-14.5) % Plt Count (130-400) K/uL MPV (9.4-12.3) fL Immature Gran % (Auto) % Neut % (Auto) % Lymph % (Auto) % Cowley % (Auto) % Eos % (Auto) % Baso % (Auto) % Neut # (Auto) (1.4-6.5) K/uL Lymph # (Auto) (1.2-3.4) K/uL Cowley # (Auto) (0.24-0.82) K/uL Eos # (Auto) (0-0.50) K/uL Baso # (Auto) (0-0.2) K/uL Immature Gran # (Auto) (0.00-0.02) K/uL PT (9.0-12.0) Seconds INR (0.9-1.1) APTT (21.0-31.0) Seconds PTT Ratio Sodium (136-145) mmol/L Potassium (3.5-5.1) mmol/L Chloride (98-107) mmol/L Carbon Dioxide (21-32) mmol/L Anion Gap (3-11) BUN (6-23) mg/dl Creatinine (0.6-1.2) mg/dl Est Cr Clr Drug Dosing ml/min Est GFR ( Amer) ml/min Est GFR (Non-Af Amer) ml/min BUN/Creatinine Ratio (10-20) Glucose (70-99(Fasting)) mg/dl Calcium (8.5-10.1) mg/dl Total Bilirubin (0.2-1.0) mg/dl AST (13-39) U/L ALT (7-52) U/L Alkaline Phosphatase (34-104) U/L Troponin I High Sens 53.6 H* (0-14) pg/ml Total Protein (6.0-8.3) gm/dl Albumin (3.4-5.0) gm/dl Globulin (2.5-4.0) gm/dl Albumin/Globulin Ratio (0.9-2) SARS-CoV-2, RNA, NAAT POSITIVE A* (NEGATIVE) Imaging Data Chest x-ray: Radiologist's impression: Chest X-Ray 04/28/22 19:58 XR chest 1V portable HISTORY: 76 years-old Female Chest Pain . Acute atypical chest pain COMPARISON: Chest radiograph 07/27/2021 TECHNIQUE: Portable AP view of the chest FINDINGS: Cardiomediastinal and hilar silhouettes are unchanged. Coronary arterial stent. Atherosclerosis of the aorta. No pneumothorax, pleural effusion, airspace consolidation or overt pulmonary edema. Degenerative changes of the shoulders and spine. IMPRESSION: No acute process. ACT 112: Negative or not required by law. The above report was generated using voice recognition software. It may contain grammatical, syntax or spelling errors. Electronically signed by: Arnaldo Barahona M.D. 04/28/2022 9:05 PM ECG Data Indication: chest pain Rate (beats per minute): 68 Rhythm: normal sinus Findings: + PVC and + ST depression (mild in V4 and V5); no ST elevation or no prolonged QT Additional Comments: QRS 68 MDM Narrative Cardiac monitoring: An order was placed for continuous cardiac monitoring. The monitor shows a rate of 70 with sinus rhythm Patient was seen during a time of extreme volume and extreme acuity in the emergency department. Nursing triage protocols were initiated and labs were drawn by protocol in the triage area. Labs show an elevated troponin. Given the patient's clinical history the mild ST depression in her EKG the patient be admitted to the [facility] alist service for rule out ACS. Dr. Vale team notified. Impression & Plan Chest pain, COVID-19 Discharge Plan Visit Data Chief Complaint: Hypertension Stated Complaint: COVID+/28, HIGH BLOOD PRESSURE,HX CARDIAC ED Provider: Avel Fish Discharge Problem: Chest pain, COVID-19 Patient Disposition: Being Evaluated by Hospitalist Forms Stand Alone Forms: My [facility] Prescriptions Prescriptions: No Action metoprolol tartrate 25 mg tablet 25 mg PO BID Qty: 180 3RF atorvastatin 80 mg tablet 80 mg PO HS Qty: 90 3RF losartan 100 mg tablet 100 mg PO DAILY Qty: 90 3RF alendronate [Fosamax] 70 mg tablet 70 mg PO ELLIS Qty: 30 1RF Rx Instructions: TAKE THIS MED EVERY SUNDAY hydrochlorothiazide 12.5 mg tablet 12.5 mg PO DAILY Qty: 90 3RF ondansetron 4 mg tablet,disintegrating 4 mg PO Q8H PRN (Reason: nausea and vomiting) Qty: 10 1RF diclofenac sodium 1 % gel 2 g topical QID PRN (Reason: pain, moderate) Qty: 100 2RF Rx Instructions: Apply to low back. desonide 0.05 % cream 1 appln TOP BID dorzolamide-timolol 22.3-6.8 mg/mL drops 1 drp OPHTHALMIC (EYE) BID lorazepam 0.5 mg tablet 0.5 mg PO DAILY PRN (Reason: Anxiety) Eliquis 5 mg tablet 5 mg PO BID 30 Days Qty: 180 3RF aspirin 81 mg Tablet,Delayed Release (Dr/Ec) 81 mg PO QAM docusate sodium [Stool Softener] 100 mg Tablet 100 mg PO HS cholecalciferol (vitamin D3) [Vitamin D3] 2,000 unit Tablet 2,000 unit PO QAM loratadine 10 mg Capsule 10 mg PO DAILY PRN (Reason: Allergy Symptoms) levothyroxine 75 mcg tablet 75 mcg PO Q2D levothyroxine 88 mcg tablet 88 mcg PO Q2D Rx Instructions: ALTERNATE DAYS WITH 75MCG. Referrals Referrals: Carlos Enrique Montana DO [Primary Care Provider] -
[2022-04-28] MEDS ORDERED: Heparin IV Adult Wt-Based Standard *NO* Bolus Protocol IV SCH (23:14)
[2022-04-28] MEDS: SODIUM CHLORIDE 0.9% 1000ML 1,000 ML IV SCH (23:23)
[2022-04-28] MEDS: HEPARIN SODIUM/DEXTROSE 25,000 UNITS/500 ML BAG IV SCH (23:31)
[2022-04-29 06:39] LABS: Basophils # (auto) 0.03 K/uL (0-0.2); Basophils % (auto) 0.6 %; Eosinophils # (auto) 0.22 K/uL (0-0.50); Eosinophils % (auto) 4.1 %; Hematocrit (blood only) 35.4 % (34.1-44.9); Hemoglobin 12.2 g/dl (12.0-16.0); Immature Granulocytes # (auto) 0.01 K/uL (0.00-0.02); Immature Granulocytes % (auto) 0.2 %; Lymphocytes # (auto) 2.43 K/uL (1.2-3.4); Lymphocytes % (auto) 45.7 %; Mean Corpuscular Hemoglobin 30.8 pg (25.0-34.0); Mean Corpuscular Hgb Conc 34.5 g/dL (32.0-36.0); Mean Corpuscular Volume 89.4 fL (80.0-100.0); Mean Platelet Volume 10.7 fL (9.4-12.3); Monocytes % (auto) 11.3 %; Neutrophils # (auto) 2.03 K/uL (1.4-6.5); Neutrophils % (auto) 38.1 %; Platelet Count 141 K/uL (130-400); RDW Coefficient of Variation 12.3 % (11.5-14.5); RDW Standard Deviation 40.5 fL (36.4-46.3); Red Blood Count 3.96 M/uL (3.93-5.22); White Blood Count 5.32 K/ul (4.8-10.8)
[2022-04-29 07:02] LABS: Albumin Globulin Ratio 1.4 (0.9-2); Albumin Level 3.3 gm/dl (3.4-5.0); BUN Creatinine Ratio 10.7 (10-20); Bilirubin,Total 0.6 mg/dl (0.2-1.0); Creatinine Clr Calc Pharmacy 58.8 ml/min; Est GFR (African American) 79.4 ml/min; Est GFR (Non-African American) 68.5 ml/min; Globulin 2.3 gm/dl (2.5-4.0); Potassium 3.2 mmol/L (3.5-5.1); Total Protein 5.6 gm/dl (6.0-8.3)
[2022-04-29 07:06] LABS: Partial Thromboplastin Ratio 3.5
[2022-04-29 07:20] LABS: Partial Thromboplastin Time 97.4 Seconds (21.0-31.0)
[2022-04-29] MEDS ORDERED: LORazepam 0.5 MG TAB PO PRN ×2 (07:39→17:00)
[2022-04-29] MEDS ORDERED: LORATADINE 10 MG TAB PO PRN (07:51)
[2022-04-29] MEDS ORDERED: LEVOTHYROXINE SODIUM 88 MCG TABLET PO SCH (08:00)
--- NOTE | 2022-04-29 08:31 | Cardiology Consultation ---
Date of Consultation April 29, 2022 Assessment & Plan (1) Chest pain: (2) CAD (coronary artery disease): (3) Hypertension: (4) COVID-19: Plan 76-year-old woman with known coronary artery disease and prior history of paroxysmal atrial fibrillation admitted with lingering minor COVID infection symptoms and recurrent chest discomfort of uncertain etiology. Lack of dynamic ECG changes or troponin peak and decay weighs against acute coronary syndrome. Rhythm has remained sinus during this hospitalization, her apixaban is being held while she is on heparin. Possibly, she could be having some degree of demand ischemia from her intermittent hypertension and discomfort. Equally likely, her discomfort could be from chest wall strain/COVID-related inflammation with recurrent coughing. Given uncertainties, continue heparin for another 24 hours but obtain ECG during chest symptoms (even if mild) to further clarify etiology of her recurring discomfort. If she has no demonstrable ECG changes during discomfort, could discontinue heparin but remain off apixaban temporarily (she would not need this immediately since her rhythm is sinus), while decision is made as to whether to proceed with stress test or cardiac catheterization (depending upon her symptoms and ECG pattern). Would aggressively manage any recurrent hypertension, could use oral clonidine or IV hydralazine. Also, continue to observe for any correlation between her hypertension and her chest discomfort. Will reevaluate tomorrow and offer further recommendations. History of Present Illness Reason for Consultation: Chest pain Requesting Physician: Keegan Allen DO Attending Physician: Keegan Allen DO History of Present Illness 76-year-old woman with CAD (remote ADAL placement LAD and circumflex), PAF, hypertension, dyslipidemia, and arthralgias who recently had COVID-19 infection and was admitted 04/28/2022 with chest tightness and and mildly elevated but flat troponin curve. She was diagnosed with COVID-19 approximately week ago and noted significant myalgias, mostly nonproductive cough, nasal congestion, nausea and vomiting. Although most of the symptoms have abated, she still has a cough and notes intermittent chest "tightness" which she states is not painful but which recurs several times a day and can last for a few hours at a time and radiate to her shoulders. Currently, she notes discomfort that "feels like wearing an extra sweater". ECG on admission showed sinus rhythm with PVCs but no significant/dynamic ST deviation. There is very minimal ST elevation in leads V1 and V2, but this is unchanged from prior studies. High-sensitivity troponin has been in the low 50s with a flat profile on 4 draws. Due to due to concerns about potential acute coronary syndrome, she was initiated on heparin. At the time of my evaluation she noted the very mild chest sensation but otherwise felt reasonably well. No dyspnea, palpitations, lightheadedness, or nausea currently. Allergies Allergy/AdvReac Type Severity Reaction Status Date / Time duloxetine Allergy Mild "I was on Verified 04/28/22 22:54 an emotional roller coaster" oxycodone Allergy Mild nightmares Verified 04/28/22 22:54 turkey Allergy Mild nausea/vomi Verified 04/28/22 22:54 ting Home Medications Medication Instructions Recorded Confirmed Type aspirin 81 mg tablet,delayed 81 mg PO QAM 12/19/18 04/28/22 History release cholecalciferol (vitamin D3) 50 2,000 unit PO QAM 12/19/18 04/28/22 History mcg (2,000 unit) tablet (Vitamin D3) docusate sodium 100 mg tablet 100 mg PO HS 12/19/18 04/28/22 History (Stool Softener) loratadine 10 mg capsule 10 mg PO DAILY PRN Allergy Symptoms 12/19/18 04/28/22 History desonide 0.05 % topical cream 1 appln topical BID 07/10/19 04/28/22 History dorzolamide 22.3 mg-timolol 6.8 1 drp ophthalmic (eye) BID 07/10/19 04/28/22 History mg/mL eye drops lorazepam 0.5 mg tablet 0.5 mg PO DAILY PRN Anxiety 07/10/19 04/28/22 History metoprolol tartrate 25 mg tablet 25 mg PO BID #180 tabs 07/11/21 04/28/22 Rx apixaban 5 mg tablet (Eliquis) 5 mg PO BID 30 days #180 tabs 07/28/21 04/28/22 Rx atorvastatin 80 mg tablet 80 mg PO HS #90 tabs 08/23/21 04/28/22 Rx losartan 100 mg tablet 100 mg PO DAILY #90 tabs 09/05/21 04/28/22 Rx alendronate 70 mg tablet (Fosamax) 70 mg PO ELLIS #30 tabs 11/14/21 04/28/22 Rx hydrochlorothiazide 12.5 mg tablet 12.5 mg PO DAILY #90 tabs 01/05/22 04/28/22 Rx diclofenac sodium 1 % topical gel 2 g topical QID PRN pain, moderate 01/31/22 04/28/22 Rx #100 grams ondansetron 4 mg disintegrating 4 mg PO Q8H PRN nausea and 04/24/22 04/28/22 Rx tablet vomiting #10 tabs levothyroxine 75 mcg tablet 75 mcg PO Q2D 04/28/22 04/28/22 History levothyroxine 88 mcg tablet 88 mcg PO Q2D 04/28/22 04/28/22 History Patient History Medical History (Updated 04/29/22 @ 13:18 by Yung Goodman MD) Anxiety Cervical somatic dysfunction Chest pain (04/28/22) Degeneration of 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 Degenerative disc disease Dyslipidemia Elevated liver enzymes Elevated troponin I level Glaucoma History of Graves' disease Hyperlipidemia Hypertension Hypokalemia Hypothyroidism Migraine Osteoarthritis Pulmonary embolism Pulmonary embolism 2012--unknown origin Segmental and somatic dysfunction of rib cage Segmental and somatic dysfunction of thoracic region Segmental and somatic dysfunction of upper extremity Septic shock Urinary frequency UTI (urinary tract infection) Vitamin D insufficiency Surgical History History of bilateral tubal ligation History of cardiac cath 10/2010 x2 History of cholecystectomy History of colonoscopy History of esophagogastroduodenoscopy (EGD) History of heart artery stent 10/2010 2 stents History of lumbar discectomy x2 L4-L5 History of parathyroidectomy with thyroidectomy History of thyroidectomy, total 1986--enlarged thyroid, Grave's Disease History of tooth extraction upper teeth removed Family History Grandmother (Maternal) Family history of diabetes mellitus Grandmother (Paternal) Family history of diabetes mellitus Father Myocardial infarction Other No family history of adverse response to anesthesia Denies family history of Ovarian cancer Prostate cancer Breast cancer Colorectal cancer Social History Smoking Status: Former smoker Tobacco Type: Cigarettes Age Started Using Tobacco: 20; Age Quit Using Tobacco: 69; packs per day: 0.5; Years Smoked: 49; Number of Years Since Quit: 4; Second Hand Exposure: No; Do You Dip or Chew Tobacco: No; Tobacco Cessation Education Requested by Patient: No Hx Alcohol Use: Yes Alcohol type: wine Alcohol Intake Frequency: 2-4 x/Month Hx Substance Use: No Preferred Language: Lao Communication Ability: Effective Visual Impairment: No Limitations Hearing Ability: Use of Hearing Aid 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: No Beliefs That Will Affect Care: None marital status: Current Living Situation: Spouse Current Living Situation Comment: lives w/ current occupational status: retired How many Children do You have: 1 Other Information That Helps Us Care for You: No Feels Safe at Home: Yes Safety Concerns: Feels Safe At This Time Childhood Exposure to Second-Hand Smoke: Yes caffeine: Yes during the past year weight has: remained stable Dental Care, Regularly: Yes Physical Activity Frequency: 1-2 Times per Week Seatbelt Use: always Sunscreen Use: Yes Assistive Devices: Denture - Upper, Glasses and Hearing Aid - Bilateral Assistive Devices Comment: no bottom teeth Physical Exam Physical Exam: Elderly white female in no distress. BP normotensive currently, intermittently hypertensive. Pulse 50-70 bpm and regular. Respirations unlabored. Skin: no ecchymoses or generalized lesions. HEENT: unremarkable. Neck: no JVD or carotid bruits. Lungs: Generally clear. No crackles or wheezes. No accessory muscle use. Cardiac: regular rhythm, no murmur or gallop. Abdomen: benign. Extremities: no edema, pulses intact. Neurologic: normal affect and conversation, nonfocal. Results & Data ([facility]) Laboratory Results Sodium 135, potassium 3.2, BUN 9, creatinine 0.84. Troponins as noted in HPI. Diagnostic Findings ECG as noted in HPI. Chest x-ray showed no acute process. PG Care Time/CCT Total # of Minutes Spent Total Time Spent with Patient: Total time spent is greater than 50% in coordination of care (as documented) at patient's floor/unit and/or counseling patient: Coding Level of Care Code 65911 Inpt Consult Level 4 Diagnoses Chest pain R07.9 Chest pain type: unspecified CAD (coronary artery disease) I25.10 Hypertension I10 COVID-19 U07.1 (1) Chest pain Chest pain type: unspecified Qualified Code(s): R07.9 - Chest pain, unspecified
--- NOTE | 2022-04-29 09:32 | Electrocardiogram Report ---
Test Reason : Blood Pressure : / mmHG Vent. Rate : 068 BPM Atrial Rate : 068 BPM P-R Int : 128 ms QRS Dur : 068 ms QT Int : 416 ms P-R-T Axes : 000 009 072 degrees QTc Int : 442 ms Poor data quality, interpretation may be adversely affected Sinus rhythm with occasional Premature ventricular complexes Abnormal ECG When compared with ECG of 27-JUL-2021 05:05, Premature ventricular complexes are now Present Confirmed by Yung Goodman ([id number]) on 04/29/2022 9:31:38 AM Referred By: REFERRED SELF Confirmed By:Yung Goodman
[2022-04-29] MEDS: METOPROLOL TARTRATE 25 MG TAB PO SCH ×2 (09:42→20:47)
[2022-04-29] MEDS: LOSARTAN POTASSIUM 50 MG TAB PO SCH (09:42)
[2022-04-29] MEDS: ASPIRIN 81 MG ECTAB PO SCH (09:42)
[2022-04-29] MEDS: DESONIDE CR 15 GM TUBE EXT SCH ×2 (13:30→20:48)
[2022-04-29] MEDS: CHOLECALCIFEROL 1,000 UNITS 25 MCG TAB PO SCH (13:30)
[2022-04-29] MEDS: FAMOTIDINE 20 MG in SYRINGE 3 ML IV SCH (13:32)
[2022-04-29] MEDS: DORZOLAMIDE/TIMOLOL 22.3/6.8MG/ML 10 ML BTL OP SCH ×2 (13:33→20:47)
[2022-04-29] MEDS: SODIUM CHLORIDE 0.9% 1000ML 1,000 ML IV SCH (14:20)
[2022-04-29 15:58] LABS: Partial Thromboplastin Ratio 3.8
[2022-04-29 16:11] LABS: Partial Thromboplastin Time 103.7 Seconds (21.0-31.0)
[2022-04-29] MEDS ORDERED: amLODIPine BESYLATE 5 MG TAB PO ONE (17:15)
[2022-04-29] MEDS ORDERED: NITROGLYCERIN SL 0.4 MG/TAB TAB SL PRN (18:29)
--- NOTE | 2022-04-29 18:34 | Hospitalist Progress Note ---
Date of Service April 29, 2022 Assessment & Plan (1) Chest pain: Plan: Chest pain Concerning for angina. Does also have chest wall painbut it is different in quality, does also have anxiety, but is different in quality/onset/resolution. -Agree with cardiology the main differentials really are afterload causing angina from her marked hypertension, versus truly unstable angina, versus effects of COVIDhowever, given that her date of onset of symptoms for COVID was about 9-10 days ago, this seems less likely. -Add as needed nitro, add amlodipine to reduce blood pressure -Continue to trend symptoms/EKG/troponin, appreciate cardiology input. COVID-19 Diagnosed 9 days ago Respiratory symptoms now minimal and she is saturating adequately on room air No current indication for dexamethasone CAD/hypertension/hyperlipidemia Home meds plus amlodipine. Otherwise as above under chest pain Paroxysmal atrial fibrillation Holding Eliquis while on heparin drip Hypothyroidism Home Synthroid DVT prophylaxis: Heparin drip as above FEN GI: N.p.o., famotidine 20 mg IV daily for GI prophylaxis Dispo: Keep on to PCU for cardiac monitoring Admission and Anticipated Discharge Date Admission Date: April 28, 2022 Subjective Ongoing chest pressure off and on. Random onset random resolution. Notes has been going on for about a week at home. Separately she has also had some degree of anxiety attacks that feel different than the chest pressure. Chest pressure comes on at random goes away at random. At times she has checked her blood pressure and noted it to be fairly markedly elevated at that time. Does not come on or go away with exertion/rest. Daughter present in the room. Answered all questions to the best my ability. Review of Systems Review of Systems: All systems reviewed & are unremarkable except as noted in HPI & below Physical Exam Physical Exam: In general she is awake and alert pleasant no distress. HEENT normocephalic atraumatic mucous membranes moist. Breathing unlabored lungs are clear no rales rhonchi or wheezes with good effort. Cardio somewhat distant but no rubs murmurs or gallops. Musculoskeletal shows her anterior chest wall/upper ribs to be quite tender to palpation bilaterallybut despite the pain being reproducible, on directed questioning she notes it is drastically different and is much more of a sharp stabbing pain compared to the pressure that she feels as far as the symptoms that brought her to the hospital. Neuro no focal deficits. Results & Data Results & Data ([facility]) Vital Signs (Past 12 Hours) Vital Signs Temp Pulse Pulse Resp BP Pulse Ox O2 Del Method 04/29/22 16:20 98.1 F 61 18 160/97 H 99 Nasal Cannula 04/29/22 15:00 57 L 04/29/22 14:00 Nasal Cannula 04/29/22 09:40 63 119/72 04/29/22 07:46 98.1 F 63 18 103/52 L 96 Nasal Cannula 04/29/22 07:00 62 O2 Flow Rate 04/29/22 16:20 2 04/29/22 15:00 04/29/22 14:00 2 04/29/22 09:40 04/29/22 07:46 2 04/29/22 07:00 PG Care Time/CCT Total # of Minutes Spent Total Time Spent with Patient: Total time spent is greater than 50% in coordination of care (as documented) at patient's floor/unit and/or counseling patient: Coding Level of Care Code 74424 Subseq Hosp Care Lvl 3 Diagnoses Chest pain R07.9 Chest pain type: unspecified (1) Chest pain Chest pain type: unspecified Qualified Code(s): R07.9 - Chest pain, unspecified
[2022-04-29 19:16] LABS: Partial Thromboplastin Ratio 2.5
[2022-04-29 19:25] LABS: Partial Thromboplastin Time 67.8 Seconds (21.0-31.0)
[2022-04-29] MEDS ORDERED: DOCUSATE SODIUM 100 MG CAP PO SCH (21:00)
[2022-04-29] MEDS ORDERED: ATORVASTATIN 40 MG TAB PO SCH (21:00)
--- NOTE | 2022-04-30 00:19 | Billing Data ---
Date of Service April 30, 2022 Coding Level of Care Code 77905 Initial Inpt Care Lvl 3
[2022-04-30] MEDS: SODIUM CHLORIDE 0.9% 1000ML 1,000 ML IV SCH (02:17)
[2022-04-30] MEDS: HEPARIN SODIUM/DEXTROSE 25,000 UNITS/500 ML BAG IV SCH (02:46)
[2022-04-30 02:58] LABS: Partial Thromboplastin Ratio 3.5
[2022-04-30 03:00] LABS: Partial Thromboplastin Time 96.7 Seconds (21.0-31.0)
[2022-04-30 06:55] LABS: BUN Creatinine Ratio 9.2 (10-20); Calcium 7.6 mg/dl (8.5-10.1); Creatinine Clr Calc Pharmacy 65.6 ml/min; Est GFR (African American) 89.6 ml/min; Est GFR (Non-African American) 77.3 ml/min; Potassium 3.3 mmol/L (3.5-5.1)
[2022-04-30] MEDS ORDERED: LEVOTHYROXINE SODIUM 75 MCG TABLET PO SCH (07:45)
--- NOTE | 2022-04-30 08:57 | Electrocardiogram Report ---
Test Reason : Blood Pressure : / mmHG Vent. Rate : 062 BPM Atrial Rate : 062 BPM P-R Int : 178 ms QRS Dur : 068 ms QT Int : 450 ms P-R-T Axes : 069 006 084 degrees QTc Int : 456 ms Sinus rhythm with Premature atrial complexes Otherwise normal ECG When compared with ECG of 28-APR-2022 20:01, Premature ventricular complexes are no longer Present Premature atrial complexes are now Present Confirmed by Yung Goodman ([id number]) on 04/30/2022 8:57:01 AM Referred By: REFERRED SELF Confirmed By:Yung Goodman
[2022-04-30] MEDS ORDERED: amLODIPine BESYLATE 5 MG TAB PO SCH (09:00)
[2022-04-30] MEDS ORDERED: hydroCHLOROthiazide 25 MG TAB PO SCH (09:00)
[2022-04-30] MEDS: DORZOLAMIDE/TIMOLOL 22.3/6.8MG/ML 10 ML BTL OP SCH (09:24)
[2022-04-30] MEDS: CHOLECALCIFEROL 1,000 UNITS 25 MCG TAB PO SCH (09:24)
[2022-04-30] MEDS: METOPROLOL TARTRATE 25 MG TAB PO SCH (09:25)
[2022-04-30] MEDS: ASPIRIN 81 MG ECTAB PO SCH (09:25)
[2022-04-30] MEDS: FAMOTIDINE 20 MG in SYRINGE 3 ML IV SCH (09:30)
[2022-04-30] MEDS: LOSARTAN POTASSIUM 50 MG TAB PO SCH (09:31)
[2022-04-30] MEDS: DESONIDE CR 15 GM TUBE EXT SCH (09:37)
--- NOTE | 2022-04-30 10:04 | Cardiology Progress Note ---
Date of Service April 30, 2022 Assessment & Plan (1) Chest pain: (2) CAD (coronary artery disease): (3) Hypertension: (4) COVID-19: Plan 76-year-old woman with known coronary artery disease and prior history of paroxysmal atrial fibrillation admitted with lingering minor COVID infection symptoms and recurrent chest discomfort of uncertain etiology. Suspect her symptoms are more musculoskeletal/inflammatory than myocardial ischemia given lack of ECG changes during chest discomfort. Her mild/flat troponin elevation seems to be a chronic phenomenon, her troponin was elevated June and July 2021 at the time of sepsis and then paroxysmal atrial fibrillation. There are no indications of significant myocardial ischemia which would prompt cardiac catheterization. In order to better clarify her situation, would recommend that she undergo a stress echocardiogram. Since she is ambulating without symptoms currently and her symptoms are unlikely to represent myocardial ischemia, okay from a cardiac standpoint for discharge with stress as outpatient (when she has fully recovered from COVID). Rhythm remains sinus, but would replete potassium and check magnesium. Discontinue heparin, could restart apixaban. BP still labile, she might benefit from having PRN clonidine available for sudden BP spikes. Admission and Anticipated Discharge Date Admission Date: April 28, 2022 Subjective She feels much better today, no longer notes any chest discomfort. Was able to walk about the room without difficulty. Denies dyspnea, lightheadedness, palpi tations, or any other complaints. She had an ECG during chest discomfort yesterday which showed no ST or T wave abnormalities. Telemetry showed sinus rhythm in the 50-70 bpm range. Physical Exam Physical Exam: Elderly white female in no distress. BP 142/78 mmHg Pulse 50-70 bpm and regular. Respirations unlabored. Full exam not performed (on COVID precautions) Results & Data ([facility]) Vital Signs (Past 12 Hours) Vital Signs Temp Pulse Pulse Resp BP Pulse Ox O2 Del Method 04/30/22 09:21 98.1 F 65 18 142/78 H 97 Room Air 04/30/22 07:30 53 L 04/30/22 03:28 98.2 F 54 L 16 124/67 97 Nasal Cannula 04/30/22 00:53 94 Nasal Cannula 04/30/22 00:52 18 88 L Room Air 04/30/22 00:51 59 L 04/29/22 23:15 98.4 F 56 L 18 124/67 91 Room Air O2 Flow Rate 04/30/22 09:21 04/30/22 07:30 04/30/22 03:28 2 04/30/22 00:53 2 04/30/22 00:52 04/30/22 00:51 04/29/22 23:15 Laboratory Results Potassium 3.3 today. High-sensitivity troponin curve remains flat (4757 range) Diagnostic Findings ECG performed yesterday during chest discomfort showed sinus rhythm with PACs but no ST deviation or T wave abnormalities. PG Care Time/CCT Total # of Minutes Spent Total Time Spent with Patient: Total time spent is greater than 50% in coordination of care (as documented) at patient's floor/unit and/or counseling patient: Coding Level of Care Code 05305 Subseq Hosp Care Lvl 3 Diagnoses Chest pain R07.9 Chest pain type: unspecified CAD (coronary artery disease) I25.10 Hypertension I10 COVID-19 U07.1 (1) Chest pain Chest pain type: unspecified Qualified Code(s): R07.9 - Chest pain, unspecified
[2022-04-30] MEDS ORDERED: POTASSIUM CHLORIDE CRTAB 20 MEQ TABCR PO STA (14:30)
--- NOTE | 2022-04-30 16:12 | Discharge Summary ---
Date of Service April 30, 2022 Admission HPI Per Admitting Provider 76yo F with PMH of CAD s/p PCI of LAD and OM2 (Oct 2010), Graves dz s/p total thyroidectomy in 1985, HLD, HTN, OA, PE in 2012, DDD s/p L4-5 discetomy, parathyroidectomy whio presented due to a few days of chest heaviness and pressure. Patient was diagnosed with COVID-19 8 days ago. She states she had symptoms including cough and congestion muscle aches and fatigue. Patient states a few days into her illness, she started to notice some chest pressure. Initially, she believed it to be related to nausea and vomiting, which she did have with her COVID infection, and as such was taking some antiemetics to try to remedy this. She also says she noticed that with the chest pressure, she was also having some bilateral shoulder pain. As her respiratory symptoms started to improve and subside, she says that her c hest pressure and shoulder pain remained. This morning, she noticed that she had some high blood pressure readings up to the 190s over 110s. She decided to wait some time and recheck at which point her blood pressure remained significantly elevated. At that time, the patient called her daughter to inform her that she was not feeling well and they decided to bring her in for evaluation. In the ED, patient had an EKG done, which showed some ST/T wave changes evident in leads V1 and V2. Her initial high-sensitivity troponin was elevated to 57.1. Chest x-ray showed no acute cardiorespiratory abnormalities. She received aspirin 324 mg x 1 and admission was recommended by ED provider. Upon my evaluation, patient continued to report some dull chest pressure. With regards to her COVID-19, her symptoms have been overall improving, with her congestion decreasing significantly, and her cough occurring less often. Denies shortness of breath, palpitations, nausea, vomiting, fever, chills, swelling, rashes, headache, dizziness. Principal Diagnosis Chest painmost likely hypertensive mediated Discharge Data Allergies Allergy/AdvReac Type Severity Reaction Status Date / Time duloxetine Allergy Mild "I was on Verified 04/28/22 22:54 an emotional roller coaster" oxycodone Allergy Mild nightmares Verified 04/28/22 22:54 turkey Allergy Mild nausea/vomi Verified 04/28/22 22:54 ting Consultations 04/28/22 21:57 ED Decision to Admit Stat 04/28/22 22:52 Consult Cardiology Routine Hospital Course (1) Chest pain: Chest pain Concerning for angina. Does also have chest wall painbut it is different in quality, does also have anxiety, but is different in quality/onset/resolution. -Agree with cardiology the main differentials really are afterload causing angina from her marked hypertension, versus truly unstable angina, versus effects of COVIDhowever, given that her date of onset of symptoms for COVID was about 9-10 days ago, this seems less likely. Added amlodipine on lood pressures improved rather markedly, and patient has had significant improvement in her chest heaviness/pressure sincesuggesting that high afterload may have been playing a major role. Safe/stable for homecontinue amlodipine. Cardiology to set up for stress test as an outpatient for completeness Mild hypoxia overnight -May totally be an incidental finding, but also discussed with patient that sleep apnea is very common and it would be probably quite worthwhile to get a sleep study in the near future COVID-19 Diagnosed 10 days ago Respiratory symptoms now minimal and she is saturating adequately on room air No current indication for dexamethasone CAD/hypertension/hyperlipidemia Home meds plus amlodipine. Otherwise as above under chest pain Paroxysmal atrial fibrillation Rate controlled, anticoagulated Hypothyroidism Home Synthroid Safe/stable for home Total Time Total Time Spent Total Time Spent (In Minutes): >30 Discharge Plan Discharge Items Patient Disposition: Home - Self-Care Reason For Visit: CHEST PAIN Discharge Diagnosis: chest pain Activity: Resume your previous activity Non-emergency contact: Primary Care Provider and Director Service Call non-emergency contact if: you have any medication questions and your symptoms worsen Follow-up/Referrals: Carlos Enrique Montana DO [Primary Care Provider] - Diet: Heart Healthy Addtl Attending Provider Instructions: Chest pressure -Fortunately there were no evidence consistent with a heart attack. The question is more whether or not this was angina, and how much of it was really just your heart pushing against high blood pressure. -Fortunately, with the addition of the amlodipine, your blood pressures are much better behaved. Probably not coincidentally, around when we started the amlodipine is when you ceased having chest pressure episodes. -To that end, we should manage this as high blood pressure leading to strain on your heart leading to an anginal sensation, but get you set up for further cardiac testing to risk stratify as far as angina related to the coronary disease. -What this means in plain [place]ian is we will send you home on the amlodipine 5 mg daily to reduce your pressure and take strain off of your heart, but to "hedge" we will also be getting you set up for a stress test in the very near future. -Most people tolerate amlodipine really well. A very small percentage notice an increase in leg swellingthis is really unlikely, I have only ever seen it may be 2 or 3 times in my entire careerbut if you were to notice a sudden onset of leg swelling in the next few days to a weekthen this would not be the right medicine for you. Its dose range goes up to 10 mg, so if your numbers are better but not perfect, Dr. Montana or cardiology could bump the dose a little higher if need be -Expect the cardiology office to be calling you in the next few days to have the stress test scheduled -Check your blood pressure a few times a day, randomlydifferent times a day, before/after medicines, when you are feeling good or when you are feeling stressedthat way Dr. Montana and cardiology have a "loss of averages" to determine control Between now and when you have the stress test: Pay attention to your symptoms, obviously. If they come on, but go away fairly quickly (less than 5 minutes), and episodes happen "few and far between" (sayarbitrarilyless than 3 episodes a day), then you can watch and wait until the stress test. If they are happening often (obviously more than 3 episodes a day as a "arbitrary line"), coming together in clusters of lots of episodes over a short period of time, or lasting more than 5 minutes without going awaythen we would want to seen soonerpotentially even in the ER. When the symptoms come on, stop what you are doing and rest, and take deep breaths. If the symptoms do not go away in 5 minutes of rest, take a nitroglycerin under your tongue. If the symptoms have not gone away 5 minutes after the first nitro, take a second nitro. If the symptoms have not gone away 5 minutes after the second nitro tab, take a third nitro, as well as an aspirin, and come directly to the ER. The goal is to have you not need the nitroglycerin at all, but like we discussed, it is sort of a safety netanalogous to a kid with asthma having their rescue inhaler. If you are able towhile I want you resting and using the nitroglycerin as priorityif you are able to check a blood pressure if you have an episode of chest heaviness that can be helpful in determining how good we are doing with blood pressure control. Pending Studies at Discharge: No Stand-Alone Forms: My [facility], Smoking Cessation Medications and DC Order Prescriptions: New amlodipine [Norvasc] 5 mg Tablet 5 mg PO QAM Qty: 30 0RF Continued metoprolol tartrate 25 mg tablet 25 mg PO BID Qty: 180 3RF atorvastatin 80 mg tablet 80 mg PO HS Qty: 90 3RF losartan 100 mg tablet 100 mg PO DAILY Qty: 90 3RF alendronate [Fosamax] 70 mg tablet 70 mg PO ELLIS Qty: 30 1RF Rx Instructions: TAKE THIS MED EVERY SUNDAY hydrochlorothiazide 12.5 mg tablet 12.5 mg PO DAILY Qty: 90 3RF ondansetron 4 mg tablet,disintegrating 4 mg PO Q8H PRN (Reason: nausea and vomiting) Qty: 10 1RF diclofenac sodium 1 % gel 2 g topical QID PRN (Reason: pain, moderate) Qty: 100 2RF Rx Instructions: Apply to low back. desonide 0.05 % cream 1 appln TOP BID dorzolamide-timolol 22.3-6.8 mg/mL drops 1 drp OPHTHALMIC (EYE) BID lorazepam 0.5 mg tablet 0.5 mg PO DAILY PRN (Reason: Anxiety) Eliquis 5 mg tablet 5 mg PO BID 30 Days Qty: 180 3RF aspirin 81 mg Tablet,Delayed Release (Dr/Ec) 81 mg PO QAM docusate sodium [Stool Softener] 100 mg Tablet 100 mg PO HS cholecalciferol (vitamin D3) [Vitamin D3] 2,000 unit Tablet 2,000 unit PO QAM loratadine 10 mg Capsule 10 mg PO DAILY PRN (Reason: Allergy Symptoms) levothyroxine 75 mcg tablet 75 mcg PO Q2D levothyroxine 88 mcg tablet 88 mcg PO Q2D Rx Instructions: ALTERNATE DAYS WITH 75MCG. Discharge Orders: Discharge Order (Routine); Ordered 04/30/22 Ordered By: Keegan Allen Admission Data Admit Date/Time: 04/28/22 22:45 Attending Provider: eKegan Allen Admit Provider: Tal Dey Primary Care Provider: Carlos Enrique Montana Other Providers: Sony Frazier ; Huy Gilliam ; Yung Goodman ; Jeromy Garcia ; Barrie Deleon ; Parrish Talamantes ; Paulie Carmona Jr ; Dima Alcantara ; Sravani Muñoz ; Laura Pritchard ; Enrique Burnette ; Chriss Edmond ; Natanael Irwin ; Alyssa Nicole ; Nallely Eagle ; José Miguel De La Garza ; Goran Agrawla ; Rohan Wagner ; Barrie Wahl V. Other Interventions: Discharge Summary Assessment (RN) Last Done: 04/30/22 16:29 Coding Level of Care Code D/C DAY MANAGEMENT >30 MINS Diagnoses Chest pain R07.9 Chest pain type: unspecified
== END 2022-04-30 18:42 | disposition home or self-care (01) | DRG 313 ==
LOC: ED 19:46 → EDINP 22:45 → SUATTDRO 22:45 → 2E 04-29 05:02

== ENCOUNTER 2023-09-11 16:38 | Observation (INO) ==
[2023-09-11] MEDS ORDERED: dilTIAZem HCl 5 MG/ML 5 ML VIAL IV ONE (16:55)
[2023-09-11] MEDS ORDERED: dilTIAZem HCl 5 MG/ML 5 ML VIAL IV STA (16:56)
[2023-09-11] MEDS ORDERED: STAT IV Infusion **Titration per Protocol STA (16:58)
[2023-09-11] MEDS ORDERED: dilTIAZem HCL 125 MG in DEXTROSE 5% 100 ML IV SCH (17:00)
--- NOTE | 2023-09-11 17:09 | Emergency Department Note ---
Impression & Plan Atrial fibrillation with rapid ventricular response, Chest pressure ED Provider Note Provider: Kirk Casanova MD DATE OF SERVICE: 09/11/2023 CHIEF COMPLAINT: Lightheaded, weight on just HISTORY OF PRESENT ILLNESS: Patient is a 77-year-old female history of hypertension, paroxysmal atrial fibrillation on Xarelto, lumbar stenosis, thyroidectomy, and CAD with stents in 2010 presenting here today reporting this afternoon around 130 or 2 began to experience weight on her chest and a lump in her throat. Began to feel weak and somewhat lightheaded. Tried proceed with her day but was unable to and had to lay down. Denies any significant abdominal pain, nausea, vomiting, or diarrhea. Denies recent fever or URI symptoms. Patient states compliance with home medications including her Xarelto. Did take an extra dose of metoprolol before having her drive her here this evening around 4:30 PM. Denies significant leg swelling at this time. Patient noted her blood pressure was elevated at home and her blood pressure monitor indicated she was in A-fib. States she is not normally in A-fib. PAST MEDICAL HISTORY: As noted above MEDICATIONS: Reviewed home medications she states compliance. Extra metoprolol at 4:30 PM. SOCIAL HISTORY: PHYSICAL EXAM: GENERAL: alert and oriented there is somewhat anxious and minimally tachypneic. Head: normocephalic and atraumatic EYES: No injection, discharge or icterus. NECK: Trachea midline. Supple. ENT: Mucous membranes pink and moist. LUNGS: Airway patent. No retractions. Breath sounds clear HEART: Irregular irregular tachycardic rate and rhythm. No chest wall tenderness ABDOMEN: Soft and non-tender, without guarding or rebound. SKIN: Acyanotic, warm, dry, without rashes EXTREMITIES: Without swelling, tenderness or deformity NEUROLOGICAL: No focal deficits. No aphasia. No facial droop or slurred speech. Normal strength and tone in the extremities. Sensation to gross touch normal. EK bpm rapid atrial fibrillation. Diffuse ST segment depression noted without acute ST segment elevation. QTc 407. EK bpm normal sinus rhythm. No PVC or PAC. No acute ST segment elevation or depression with a QTc of 436. CONTINUOUS CARDIAC MONITORING: was ordered and showed a heart rate of 50s-180s bpm in atrial fibrillation later converting to sinus rhythm and sinus bradycardia Patient's laboratory studies and imaging reviewed. Differential includes Infection, dehydration, metabolic abnormality, hypo/hyperglycemia, electrolyte disturbance, anemia, hypoxia, cardiac sources, intracerebral event, toxicologic, neurologic, as well as other pathologies. IMPRESSION/MEDICAL DECISION MAKING: Patient presentation appears to have rapid A-fib with diffuse ST depressions. Weight on the chest is concerning for some demand ischemia. Blood pressure just over 100 here and provided reassurance that she is somewhat anxious initially. Is compliant with all medications and did recently take an extra dose of metoprolol but unsure that or metoprolol has really absorbed to have much impact at this point. Given a 10 mg bolus of diltiazem with some improvement of rate at least into the 1 teens and 20s. Labs including thyroid functio, magnesium, and troponin were sent. Unclear what provoked her A-fib episode today she states she is otherwise been well. Doubt this represents acute ACS and likely the ST segment changes in the EKG and the weight on her chest are related to demand from her rapid A-fib. Diltiazem drip was ordered so that we can titrate to effect to help slow her heart rate. Present bolus and drip was effective and this was shortly discontinue after initiation as heart rate improved and she converted to normal sinus rhythm in the 60s. Electrolytes without severe abnormality magnesium 1 point indicated 3.4. Given a dose of oral potassium. No significant leukocytosis or anemia. No evidence of thyroid dysfunction based on TSH. Troponin elevation 56.9. Reviewed prior records appears that often she is in the mid 30s to 50. On reassessment patient again now in sinus rhythm to sinus bradycardia no longer having weight on the chest. Was ambulatory the bathroom. Feeling improved. Unclear exactly why she had her episode of A-fib RVR. Now appears to have broken. Again doubt this is acute ACS. Given the mild elevation however unclear etiology of why she went into A-fib necessarily today although she has a history discussed briefly with cardiology via phone. Discussed normal stress echo in April 2022. Discussed anticoagulation and metoprolol dosing. Discussed with cardiology if they felt further observation would be warranted as the patient is eager to go home and feeling improved. Dr. Edmond thought the patient will be fine to go home with probably increase metoprolol dosing if she is feeling improved. Reassessment and discussed with the patient. While she was initially on board with going home did state that she states she tried to belch and was little bit nauseous. Nauseous this has improved but she states she did want to tell me initially but she was still having some chest pressure and weight on her chest. As such discussed at length with her and her family at bedside as she is still having some chest pressure symptoms would recommend we observe her overnight. She was in agreement. Hospitalist contacted. DIAGNOSIS: A-fib RVR, chest pain DISPOSITION: Hospitalist will evaluate Patient was agreeable with this plan. Critical Care I have personally spent 32 minutes of critical care time in the direct management of this patient. This includes bedside care, interpretation of diagnostic studies, and testing, discussion with consultants, patient, and family members, and other required patient management activities. These 32 minutes is in excess of all separately billable procedures. Past Med/Surg History Medical History Anxiety Cervical somatic dysfunction Chest pain (04/28/22) Degeneration of 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 Degenerative disc disease Dyslipidemia Elevated liver enzymes Elevated troponin Elevated troponin I level Glaucoma History of colon polyps History of Graves' disease Hyperlipidemia Hypertension Hypokalemia Hypothyroidism Migraine Osteoarthritis Pulmonary embolism Pulmonary embolism Segmental and somatic dysfunction of rib cage Segmental and somatic dysfunction of thoracic region Segmental and somatic dysfunction of upper extremity Septic shock Urinary frequency UTI (urinary tract infection) Vitamin D insufficiency Surgical History H/O lumbosacral spine surgery History of bilateral tubal ligation History of cardiac cath History of cholecystectomy History of colonoscopy History of esophagogastroduodenoscopy (EGD) History of heart artery stent History of lumbar discectomy History of parathyroidectomy History of thyroidectomy, total History of tooth extraction Family History Grandmother (Maternal) Family history of diabetes mellitus Grandmother (Paternal) Family history of diabetes mellitus Father Myocardial infarction Other No family history of adverse response to anesthesia Denies family history of Ovarian cancer Prostate cancer Breast cancer Colorectal cancer Social History Smoking Status: Former smoker Tobacco Type: Cigarettes Age Started Using Tobacco: 20; Age Quit Using Tobacco: 69; packs per day: 0.5; Second Hand Exposure: No; Do You Dip or Chew Tobacco: No; Tobacco Cessation Education Requested by Patient: No Hx Alcohol Use: No Hx Substance Use: No Preferred Language: Bruneian Communication Ability: Effective Visual Impairment: No Limitations Hearing Ability: Use of Hearing Aid Color Maker Required: No Beliefs That Will Affect Care: None marital status: Current Living Situation: Spouse Current Living Situation Comment: lives w/ current occupational status: retired How many Children do You have: 1 Other Information That Helps Us Care for You: No Feels Safe at Home: Yes Safety Concerns: Feels Safe At This Time Childhood Exposure to Second-Hand Smoke: Yes Diet: regular caffeine: Yes during the past year weight has: remained stable Dental Care, Regularly: Yes Physical Activity Frequency: Daily Seatbelt Use: always Sunscreen Use: Yes Assistive Devices: Denture - Upper, Denture - Lower and Hearing Aid - Bilateral Assistive Devices Comment: hearing aides are at home Allergies Allergies Allergy/AdvReac Type Severity Reaction Status Date / Time duloxetine AdvReac Intermediate "I was on Verified 08/22/23 10:39 an emotional roller coaster" oxycodone AdvReac Intermediate nightmares Verified 08/22/23 10:39 turkey AdvReac Intermediate nausea/vomi Verified 08/22/23 10:39 ting Home Meds Home Medications Medication Instructions Recorded Confirmed aspirin 81 mg tablet,delayed 81 mg PO QAM 12/19/18 09/11/23 release cholecalciferol (vitamin D3) 50 2,000 unit PO QAM 12/19/18 09/11/23 mcg (2,000 unit) tablet (Vitamin D3) loratadine 10 mg capsule 10 mg PO QAM Allergy Symptoms 12/19/18 09/11/23 desonide 0.05 % topical cream 1 appln topical BID PRN Dry Skin 07/10/19 09/11/23 latanoprost 0.005 % eye drops 1 drp OPL HS 12/04/22 09/11/23 amlodipine 2.5 mg tablet 2.5 mg PO QAM 09/11/23 09/11/23 brimonidine 0.2 %-timolol 0.5 % 1 drp OPB [facility] 09/11/23 09/11/23 eye drops levothyroxine 75 mcg tablet 75 mcg PO Q OTHER DAY 09/11/23 09/11/23 levothyroxine 88 mcg tablet 88 mcg PO Q OTHER DAY 09/11/23 09/11/23 losartan 100 mg tablet 100 mg PO QAM 09/11/23 09/11/23 rivaroxaban 20 mg tablet (Xarelto) 20 mg PO QAM 09/11/23 09/11/23 Previous Rx's Medication Instructions Recorded nitroglycerin 0.4 mg sublingual 0.4 mg sublingual Q5M PRN chest 05/01/22 tablet pain #30 tabs lorazepam 0.5 mg tablet 0.5 mg PO DAILY PRN Anxiety #30 12/04/22 tabs alendronate 70 mg tablet (Fosamax) 70 mg PO WK #12 tabs 02/13/23 metoprolol tartrate 25 mg tablet 25 mg PO BID #180 tabs 07/02/23 atorvastatin 80 mg tablet 80 mg PO HS #90 tabs 08/13/23 Results & Data (ED) Vital Signs Vital Signs - 24 hr 09/11/23 16:41 09/11/23 16:50 09/11/23 16:53 Temperature 36.5 C Temperature Source Temporal Artery Scan Pulse Rate 122 H 155 H 154 H Pulse Rate from SpO2 Sensor 57 L Pulse Rhythm Regular Respiratory Rate 20 22 Respiratory Effort / Characteristics Non-Labored Spontaneous Respiratory Depth Normal Blood Pressure 92/61 L Blood Pressure Mean 71 Pulse Oximetry 97 96 Sepsis Recent Fever Within 48 Hours No Sepsis New/Unexplained Change in Mental Status No Sepsis Action Taken by Nursing No Action Required 09/11/23 16:53 09/11/23 16:55 09/11/23 16:55 Temperature Temperature Source Pulse Rate 158 H Pulse Rate from SpO2 Sensor 100 H Pulse Rhythm Respiratory Rate 20 Respiratory Effort / Characteristics Respiratory Depth Blood Pressure 98/85 L 109/54 L Blood Pressure Mean 91 73 Pulse Oximetry 97 Sepsis Recent Fever Within 48 Hours Sepsis New/Unexplained Change in Mental Status Sepsis Action Taken by Nursing 09/11/23 17:00 09/11/23 17:02 09/11/23 17:02 Temperature Temperature Source Pulse Rate 110 H 77 Pulse Rate from SpO2 Sensor 108 H Pulse Rhythm Respiratory Rate 18 17 Respiratory Effort / Characteristics Respiratory Depth Blood Pressure 118/96 Blood Pressure Mean 105 Pulse Oximetry 97 97 Sepsis Recent Fever Within 48 Hours Sepsis New/Unexplained Change in Mental Status Sepsis Action Taken by Nursing 09/11/23 17:25 09/11/23 17:25 09/11/23 17:30 Temperature Temperature Source Pulse Rate 63 60 Pulse Rate from SpO2 Sensor 62 62 Pulse Rhythm Respiratory Rate 18 16 Respiratory Effort / Characteristics Respiratory Depth Blood Pressure 121/71 Blood Pressure Mean 80 Pulse Oximetry 95 95 Sepsis Recent Fever Within 48 Hours Sepsis New/Unexplained Change in Mental Status Sepsis Action Taken by Nursing 09/11/23 17:30 09/11/23 17:45 09/11/23 17:45 Temperature Temperature Source Pulse Rate 59 L Pulse Rate from SpO2 Sensor 59 L Pulse Rhythm Respiratory Rate 12 Respiratory Effort / Characteristics Respiratory Depth Blood Pressure 125/69 113/61 Blood Pressure Mean 92 89 Pulse Oximetry 95 Sepsis Recent Fever Within 48 Hours Sepsis New/Unexplained Change in Mental Status Sepsis Action Taken by Nursing 09/11/23 18:00 09/11/23 18:00 09/11/23 18:30 Temperature Temperature Source Pulse Rate 58 L Pulse Rate from SpO2 Sensor 59 L Pulse Rhythm Respiratory Rate 18 Respiratory Effort / Characteristics Respiratory Depth Blood Pressure 127/68 129/80 Blood Pressure Mean 82 87 Pulse Oximetry 94 Sepsis Recent Fever Within 48 Hours Sepsis New/Unexplained Change in Mental Status Sepsis Action Taken by Nursing 09/11/23 18:30 09/11/23 18:46 09/11/23 18:46 Temperature Temperature Source Pulse Rate 66 61 Pulse Rate from SpO2 Sensor 67 70 Pulse Rhythm Respiratory Rate 14 21 Respiratory Effort / Characteristics Respiratory Depth Blood Pressure 150/85 H Blood Pressure Mean 113 Pulse Oximetry 97 91 Sepsis Recent Fever Within 48 Hours Sepsis New/Unexplained Change in Mental Status Sepsis Action Taken by Nursing 09/11/23 18:50 09/11/23 19:00 09/11/23 19:00 Temperature Temperature Source Pulse Rate 67 62 Pulse Rate from SpO2 Sensor 67 62 Pulse Rhythm Respiratory Rate 24 20 Respiratory Effort / Characteristics Respiratory Depth Blood Pressure 142/81 H Blood Pressure Mean 114 Pulse Oximetry 97 96 Sepsis Recent Fever Within 48 Hours Sepsis New/Unexplained Change in Mental Status Sepsis Action Taken by Nursing 09/11/23 19:10 09/11/23 19:15 09/11/23 19:15 Temperature Temperature Source Pulse Rate 71 69 Pulse Rate from SpO2 Sensor 68 68 Pulse Rhythm Respiratory Rate 20 22 Respiratory Effort / Characteristics Respiratory Depth Blood Pressure 153/132 H Blood Pressure Mean 136 Pulse Oximetry 93 96 Sepsis Recent Fever Within 48 Hours Sepsis New/Unexplained Change in Mental Status Sepsis Action Taken by Nursing 09/11/23 19:20 09/11/23 19:30 09/11/23 19:30 Temperature Temperature Source Pulse Rate 66 73 Pulse Rate from SpO2 Sensor 67 72 Pulse Rhythm Respiratory Rate 20 19 Respiratory Effort / Characteristics Respiratory Depth Blood Pressure 135/96 Blood Pressure Mean 112 Pulse Oximetry 96 95 Sepsis Recent Fever Within 48 Hours Sepsis New/Unexplained Change in Mental Status Sepsis Action Taken by Nursing 09/11/23 19:40 09/11/23 19:45 09/11/23 19:45 Temperature Temperature Source Pulse Rate 70 72 Pulse Rate from SpO2 Sensor 70 72 Pulse Rhythm Respiratory Rate 16 19 Respiratory Effort / Characteristics Respiratory Depth Blood Pressure 128/75 Blood Pressure Mean 99 Pulse Oximetry 95 95 Sepsis Recent Fever Within 48 Hours Sepsis New/Unexplained Change in Mental Status Sepsis Action Taken by Nursing 09/11/23 19:50 09/11/23 20:00 09/11/23 20:00 Temperature Temperature Source Pulse Rate 72 73 Pulse Rate from SpO2 Sensor 72 73 Pulse Rhythm Respiratory Rate 19 15 Respiratory Effort / Characteristics Respiratory Depth Blood Pressure 135/76 Blood Pressure Mean 101 Pulse Oximetry 96 95 Sepsis Recent Fever Within 48 Hours Sepsis New/Unexplained Change in Mental Status Sepsis Action Taken by Nursing 09/11/23 20:10 09/11/23 20:20 Temperature Temperature Source Pulse Rate 70 72 Pulse Rate from SpO2 Sensor 70 72 Pulse Rhythm Respiratory Rate 14 25 H Respiratory Effort / Characteristics Respiratory Depth Blood Pressure Blood Pressure Mean Pulse Oximetry 96 94 Sepsis Recent Fever Within 48 Hours Sepsis New/Unexplained Change in Mental Status Sepsis Action Taken by Nursing Laboratory Data 09/11/23 16:55 09/11/23 16:55 Lab Results 09/11/23 09/11/23 Range/Units 16:55 18:48 WBC 5.38 (4.8-10.8) K/ul RBC 4.39 (4.20-5.40) M/uL Hgb 13.5 (12.0-16.0) g/dl Hct 40.0 (37.0-47.0) % MCV 91.1 (80.0-100.0) fL MCH 30.8 (25.0-34.0) pg MCHC 33.8 (32.0-36.0) g/dL RDW Std Deviation 46.4 H (36.4-46.3) fL RDW Coeff of Pepe 13.8 (11.5-14.5) % Plt Count 170 (130-400) K/uL MPV 11.2 (9.4-12.4) fL Immature Gran % (Auto) 0.2 % Neut % (Auto) 43.6 % Lymph % (Auto) 41.4 % [place] % (Auto) 11.3 % Eos % (Auto) 2.6 % Baso % (Auto) 0.9 % Neut # (Auto) 2.34 (1.40-6.50) K/uL Lymph # (Auto) 2.23 (1.20-3.40) K/uL [place] # (Auto) 0.61 H (0.11-0.59) K/uL Eos # (Auto) 0.14 (0.00-0.50) K/uL Baso # (Auto) 0.05 (0.00-0.20) K/uL Immature Gran # (Auto) 0.01 (0.01-0.20) K/uL PT 13.0 H (9.0-12.0) Seconds INR 1.2 H (0.9-1.1) APTT 35 H (21-31) Seconds PTT Ratio 1.2 Sodium 139 (136-145) mmol/L Potassium 3.4 L (3.5-5.1) mmol/L Chloride 106 (98-107) mmol/L Carbon Dioxide 23 (21-32) mmol/L Anion Gap 10 (3-11) BUN 22 (6-23) mg/dl Creatinine 0.93 (0.6-1.2) mg/dl Est Cr Clr Drug Dosing 49.8 ml/min Est GFR ( Amer) 69.7 ml/min Est GFR (Non-Af Amer) 60.1 ml/min BUN/Creatinine Ratio 23.7 H (10-20) Glucose 96 (70-99(Fasting)) mg/dl Calcium 9.2 (8.6-10.3) mg/dl Magnesium 1.8 (1.7-2.4) mg/dl Total Bilirubin 0.7 (0.2-1.0) mg/dl AST 30 (13-39) U/L ALT 15 (7-52) U/L Alkaline Phosphatase 70 (34-104) U/L Troponin I High Sens 56.9 H* 52.2 H* (0-14) pg/ml Total Protein 6.9 (6.0-8.3) gm/dl Albumin 4.2 (3.4-5.0) gm/dl Globulin 2.7 (2.5-4.0) gm/dl Albumin/Globulin Ratio 1.6 (0.9-2) TSH 0.446 (0.300-4.500) uIu/ml SARS-CoV-2, RNA, NAAT NEGATIVE (NEGATIVE) Administered Medications Atorvastatin Calcium (Atorvastatin 40 Mg Tab) 80 mg PO HS [facility] Stop: 10/11/23 21:05 Last Admin: 09/11/23 21:59 Dose: 80 mg Documented By: SHELLEY Latanoprost (Latanoprost 0.005% Op Soln 2.5 Ml Btl) 1 drops OPL HS [facility] Stop: 10/11/23 21:05 Last Admin: 09/11/23 21:59 Dose: 1 drops Documented By: SHELLEY Metoprolol Tartrate (Metoprolol Tartrate 25 Mg Tab) 25 mg PO BID [facility] Stop: 10/11/23 21:05 Last Admin: 09/11/23 22:00 Dose: Not Given Documented By: SHELLEY Discontinued Medications Diltiazem HCl (Diltiazem Hcl 5 Mg/Ml 5 Ml Vial) Confirm Administered Dose 25 mg IV .STK-MED ONE Stop: 09/11/23 16:56 Last Admin: 09/11/23 16:59 Dose: Not Given Documented By: HAI Diltiazem HCl (Diltiazem Hcl 5 Mg/Ml 5 Ml Vial) 10 mg IV NOW [facility] Stop: 09/11/23 16:57 Last Admin: 09/11/23 16:59 Dose: 10 mg Documented By: HAI Co-signed By: MABEL Diltiazem HCl 125 mg/ Dextrose 125 mls @ 5 mls/hr IV .Q24H [facility]; Protocol Stop: 10/11/23 16:59 Last Titration: 09/11/23 19:01 Dose: Infused Documented By: KALEN Co-signed By: HAI Admin: 09/11/23 17:13 Dose: 5 mg/hr, 5 mls/hr Documented By: HAI Co-signed By: MORIAH Magnesium Sulfate/Dextrose (Magnesium Sulfate / D5w) 1 gm in 100 mls @ 50 mls/hr IV ONE ONE Stop: 09/11/23 22:09 Last Admin: 09/11/23 21:58 Dose: 50 mls/hr Documented By: SHELLEY Potassium Chloride ([place] / Wtr) 10 meq in 100 mls @ 100 mls/hr IV ONE ONE Stop: 09/11/23 21:09 Last Admin: 09/11/23 21:58 Dose: 100 mls/hr Documented By: SHELLEY Metoprolol Tartrate (Metoprolol Tartrate 25 Mg Tab) 25 mg PO NOW STA Stop: 09/11/23 20:11 Last Admin: 09/11/23 21:59 Dose: 25 mg Documented By: SHELLEY Miscellaneous (Stat Iv Infusion Titration Per Protocol) 1 each N/A NOW STA Stop: 09/11/23 16:59 Last Admin: 09/11/23 19:01 Dose: Not Given Documented By: KALEN Potassium Chloride (Potassium Chloride Crtab 20 Meq Tabcr) 20 meq PO NOW STA Stop: 09/11/23 18:01 Last Admin: 09/11/23 18:09 Dose: 20 meq Documented By: MABEL Potassium Chloride (Potassium Chloride Crtab 20 Meq Tabcr) 20 meq PO NOW STA Stop: 09/11/23 20:11 Last Admin: 09/11/23 21:58 Dose: 20 meq Documented By: SHELLEY Imaging Data Radiologist's Impression: Chest X-Ray 09/11/23 16:56 XR chest 1V portable CLINICAL HISTORY: Dysrhythmia TECHNIQUE: Single frontal radiograph of the chest was obtained. Comparison: Comparison is made to chest radiograph 01/29/2023 FINDINGS: No lines and tubes are seen. Cardiomegaly is noted. The aortic arch is calcified. The lungs are clear. No evidence of pleural effusion or pneumothorax. IMPRESSION: No acute chest disease. ACT 112: Negative or not required by law. Electronically signed by: Fan Li M.D. 09/11/2023 5:25 PM Discharge Plan Visit Data Chief Complaint: Chest Pain Stated Complaint: 170/111 BLOOD PRESSURE, CHEST PAIN, ED Provider: Kirk Casanova Discharge Problem: Atrial fibrillation with rapid ventricular response, Chest pressure Patient Disposition: Admitted As Inpatient Discharge Instructions Interventions: ED Discharge Assessment Last Done: 09/11/23 20:46
[2023-09-11 17:15] LABS: Basophils # (auto) 0.05 K/uL (0.00-0.20); Basophils % (auto) 0.9 %; Eosinophils # (auto) 0.14 K/uL (0.00-0.50); Eosinophils % (auto) 2.6 %; Hemoglobin 13.5 g/dl (12.0-16.0); Immature Granulocytes # (auto) 0.01 K/uL (0.01-0.20); Immature Granulocytes % (auto) 0.2 %; Lymphocytes # (auto) 2.23 K/uL (1.20-3.40); Lymphocytes % (auto) 41.4 %; Mean Corpuscular Hemoglobin 30.8 pg (25.0-34.0); Mean Corpuscular Hgb Conc 33.8 g/dL (32.0-36.0); Mean Corpuscular Volume 91.1 fL (80.0-100.0); Mean Platelet Volume 11.2 fL (9.4-12.4); Monocytes # (auto) 0.61 K/uL (0.11-0.59); Monocytes % (auto) 11.3 %; Neutrophils # (auto) 2.34 K/uL (1.40-6.50); Neutrophils % (auto) 43.6 %; Platelet Count 170 K/uL (130-400); RDW Coefficient of Variation 13.8 % (11.5-14.5); RDW Standard Deviation 46.4 fL (36.4-46.3); Red Blood Count 4.39 M/uL (4.20-5.40); White Blood Count 5.38 K/ul (4.8-10.8)
--- NOTE | 2023-09-11 17:26 | XRay Report ---
XR chest 1V portable CLINICAL HISTORY: Dysrhythmia TECHNIQUE: Single frontal radiograph of the chest was obtained. Comparison: Comparison is made to chest radiograph 01/29/2023 FINDINGS: No lines and tubes are seen. Cardiomegaly is noted. The aortic arch is calcified. The lungs are clear . No evidence of pleural effusion or pneumothorax. IMPRESSION: No acute chest disease. ACT 112: Negative or not required by law. Electronically signed by: Fan Li M.D. 09/11/2023 5:25 PM
[2023-09-11 17:32] LABS: Albumin Globulin Ratio 1.6 (0.9-2); Albumin Level 4.2 gm/dl (3.4-5.0); BUN Creatinine Ratio 23.7 (10-20); Bilirubin,Total 0.7 mg/dl (0.2-1.0); Calcium 9.2 mg/dl (8.6-10.3); Creatinine Clr Calc Pharmacy 49.8 ml/min; Est GFR (African American) 69.7 ml/min; Est GFR (Non-African American) 60.1 ml/min; Globulin 2.7 gm/dl (2.5-4.0); Magnesium 1.8 mg/dl (1.7-2.4); Potassium 3.4 mmol/L (3.5-5.1); Total Protein 6.9 gm/dl (6.0-8.3)
[2023-09-11 17:43] LABS: INR 1.2 (0.9-1.1); Partial Thromboplastin Ratio 1.2; Partial Thromboplastin Time 35 Seconds (21-31)
[2023-09-11 17:44] LABS: Troponin I High Sensitivity 56.9 pg/ml (0-14)
[2023-09-11 17:48] LABS: Thyroid Stimulating Hormone 0.446 uIu/ml (0.300-4.500)
[2023-09-11] MEDS ORDERED: POTASSIUM CHLORIDE CRTAB 20 MEQ TABCR PO STA ×2 (18:00→20:10)
[2023-09-11] MEDS ORDERED: POTASSIUM CHLORIDE / WTR 10 MEQ/100 ML PLCT IV ONE (20:10)
[2023-09-11] MEDS ORDERED: MAGNESIUM SULFATE / D5W 1 GM/100 ML BAG IV ONE (20:10)
[2023-09-11] MEDS ORDERED: METOPROLOL TARTRATE 25 MG TAB PO STA (20:10)
--- NOTE | 2023-09-11 20:25 | History & Physical Report ---
Date of Service September 11, 2023 Assessment & Plan (1) Atrial fibrillation with rapid ventricular response: (2) Chest pain: (3) Hyperlipidemia: (4) Hypertension: (5) Antiplatelet or antithrombotic long-term use: (6) Paroxysmal atrial fibrillation: (7) Status post insertion of drug-eluting stent into left anterior descending (LAD) artery: (8) Presence of drug-eluting stent in left circumflex coronary artery: (9) Chronic anticoagulation: (10) Hypothyroidism associated with surgical procedure: (11) Hypokalemia: Plan Atrial fibrillation with RVR/PAF/hypertension/LAD stent/left circumflex artery stent/hypertension- The patient had taken her usual Toprol tartrate 25 mg in the morning, and then took additional 25 mg 430 prior to come to the ED. She was given diltiazem 10 mg IV bolus followed by diltiazem drip in ED, which was discontinued when she converted to sinus rhythm The patient will be admitted to telemetry for serial cardiac enzymes, serial EKG's, cardiac rhythm monitoring and a 2-D echocardiogram with Dopplers. Continue to stay off the Cardizem drip Hold amlodipine 2.5 mg Continue losartan 100 mg continue metoprolol tartrate 25 mg p.o. twice daily Optimize potassium and magnesium with IV and oral replacement Troponin 56.9, secondary to increased heart rate, but will follow serially as noted Continue Xarelto, aspirin Electrolyte disturbances- Potassium 3.4 and magnesium 1.8 Give magnesium sulfate 1 g IV now, and placed on magnesium oxide 400 mg p.o. twice daily. Patient reports that she does take an gycx-gby-lsometc magnesium supplement The patient is a received Klor-Con 20 mEq p.o. from the ED. Given additional 20 mill equivalents p.o. now, and KCl 10 mEq IV rider. Recheck laboratories in a.m. Hyperlipidemia- Continue atorvastatin History of Present Illness Chief Complaint: The patient presents to the emergency department with report of rapid heart rate, which she interpreted as a recurrence of her atrial fibrillation with RVR around 130 this afternoon. She had taken her metoprolol tartrate 25 mg in the morning, took additional metoprolol titrate 25 mg around 430 this afternoon as previously directed by cardiology Primary Care Provider: Carlos Enrique Montana DO The patient is a 77-year-old female with a past medical history including paroxysmal atrial fibrillation, CAD, hypertension, hyperlipidemia, postsurgical hypothyroidism, pyelonephritis, drug-eluting stent in the LAD, drug-eluting stent in the left circumflex coronary artery on chronic anticoagulation with Xarelto. The patient presents emergency department as noted above. Along with the return of A-fib atrial fibrillation VR, she did develop chest discomfort, which improved once her rate was controlled in the emergency department. She denies any recent change in activities, eating or drinking patterns. She denies any recent travels or sick exposures. Allergies Allergy/AdvReac Type Severity Reaction Status Date / Time duloxetine AdvReac Intermediate "I was on Verified 08/22/23 10:39 an emotional roller coaster" oxycodone AdvReac Intermediate nightmares Verified 08/22/23 10:39 turkey AdvReac Intermediate nausea/vomi Verified 08/22/23 10:39 ting Home Medications Medication Instructions Recorded Confirmed Type aspirin 81 mg tablet,delayed 81 mg PO QAM 12/19/18 09/11/23 History release cholecalciferol (vitamin D3) 50 2,000 unit PO QAM 12/19/18 09/11/23 History mcg (2,000 unit) tablet (Vitamin D3) loratadine 10 mg capsule 10 mg PO QAM Allergy Symptoms 12/19/18 09/11/23 History desonide 0.05 % topical cream 1 appln topical BID PRN Dry Skin 07/10/19 09/11/23 History nitroglycerin 0.4 mg sublingual 0.4 mg sublingual Q5M PRN chest 05/01/22 09/11/23 Rx tablet pain #30 tabs latanoprost 0.005 % eye drops 1 drp OPL HS 12/04/22 09/11/23 History lorazepam 0.5 mg tablet 0.5 mg PO DAILY PRN Anxiety #30 12/04/22 09/11/23 Rx tabs alendronate 70 mg tablet (Fosamax) 70 mg PO WK #12 tabs 02/13/23 09/11/23 Rx metoprolol tartrate 25 mg tablet 25 mg PO BID #180 tabs 07/02/23 09/11/23 Rx atorvastatin 80 mg tablet 80 mg PO HS #90 tabs 08/13/23 09/11/23 Rx amlodipine 2.5 mg tablet 2.5 mg PO QAM 09/11/23 09/11/23 History brimonidine 0.2 %-timolol 0.5 % 1 drp OPB AMHS 09/11/23 09/11/23 History eye drops levothyroxine 75 mcg tablet 75 mcg PO Q OTHER DAY 09/11/23 09/11/23 History levothyroxine 88 mcg tablet 88 mcg PO Q OTHER DAY 09/11/23 09/11/23 History losartan 100 mg tablet 100 mg PO QAM 09/11/23 09/11/23 History rivaroxaban 20 mg tablet (Xarelto) 20 mg PO QAM 09/11/23 09/11/23 History Past Med/Surg History Medical History (Updated 09/12/23 @ 04:30 by Sony Frazier MD) Hypokalemia Vitamin D insufficiency Segmental and somatic dysfunction of upper extremity Segmental and somatic dysfunction of thoracic region Segmental and somatic dysfunction of rib cage Elevated liver enzymes Dyslipidemia Degeneration of 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 Cervical somatic dysfunction Urinary frequency UTI (urinary tract infection) Elevated troponin Septic shock History of colon polyps Osteoarthritis Degenerative disc disease Hypothyroidism History of Graves' disease Anxiety Glaucoma Migraine Hypertension Hyperlipidemia Pulmonary embolism 2012--unknown origin Elevated troponin I level Chest pain (04/28/22) Pulmonary embolism Surgical History H/O lumbosacral spine surgery History of bilateral tubal ligation History of lumbar discectomy x3 L4-L5 History of cholecystectomy History of colonoscopy History of esophagogastroduodenoscopy (EGD) History of tooth extraction upper teeth removed History of parathyroidectomy with thyroidectomy History of thyroidectomy, total 1985--enlarged thyroid, Grave's Disease History of heart artery stent 10/2010 2 stents History of cardiac cath 10/2010 x2 Family History Grandmother (Maternal) Family history of diabetes mellitus Grandmother (Paternal) Family history of diabetes mellitus Father Myocardial infarction Other No family history of adverse response to anesthesia Denies family history of Ovarian cancer Prostate cancer Breast cancer Colorectal cancer Social History Smoking Status: Former smoker Tobacco Type: Cigarettes Age Started Using Tobacco: 20; Age Quit Using Tobacco: 69; packs per day: 0.5; Second Hand Exposure: No; Do You Dip or Chew Tobacco: No; Tobacco Cessation Education Requested by Patient: No Hx Alcohol Use: No Hx Substance Use: No Preferred Language: Welsh Communication Ability: Effective Visual Impairment: No Limitations Hearing Ability: Use of Hearing Aid 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 Required: No Beliefs That Will Affect Care: None marital status: Current Living Situation: Spouse Current Living Situation Comment: lives w/ current occupational status: retired How many Children do You have: 1 Other Information That Helps Us Care for You: No Feels Safe at Home: Yes Safety Concerns: Feels Safe At This Time Childhood Exposure to Second-Hand Smoke: Yes Diet: regular caffeine: Yes during the past year weight has: remained stable Dental Care, Regularly: Yes Physical Activity Frequency: Daily Seatbelt Use: always Sunscreen Use: Yes Assistive Devices: Denture - Upper, Denture - Lower and Hearing Aid - Bilateral Assistive Devices Comment: hearing aides are at home Review of Systems Review of Systems: The patient denies cough, lower extremity swelling, sore throat, fevers, chills, sweats, nausea, vomiting, diarrhea , constipation, abdominal pain, pelvic pain, blood in urine or stool, dysuria, urinary frequency or urgency, lightheadedness, dizziness, headache, memory loss, loss of consciousness, rash, abnormal bruising or bleeding, imbalance, focal or generalized weakness, numbness or tingling in arms or legs, generalized arthralgias or myalgias, back or neck pain, or night sweats. The review of systems is otherwise negative other than for that already noted above, and at least 10 systems have been reviewed. Physical Exam Physical Exam: The patient is awake, alert and oriented 3, well developed and well nourished, normocephalic and atraumatic, lying in bed and in no acute distress. HEENT--PERRL, EOMI, mucous membranes and oropharynx dry. Neck--supple. No JVD. No bruits. Thyroid normal, trachea midline, no adenopathy. Heart--normal S1 and S2. No murmurs, rubs or gallops. Lungs--clear bilaterally, no respiratory distress, no accessory muscle use. Abdomen--normal bowel sounds and soft. Nontender. Nondistended, no hernias or masses, no organomegaly. Extremities--no cyanosis or clubbing. No edema. Dermatologic--normal skin turgor, normal color, no abnormal lymph nodes, no rash. Neurologic--cranial nerves II through XII grossly intact. Rheumatologic--normal range of motion. Psychiatric--normal affect. Results & Data Results & Data Vital Signs (Past 12 Hours) Vital Signs Temp Pulse Resp BP Pulse Ox 09/11/23 18:30 66 14 97 09/11/23 18:30 129/80 09/11/23 18:00 127/68 09/11/23 18:00 58 L 18 94 09/11/23 17:45 113/61 09/11/23 17:45 59 L 12 95 09/11/23 17:30 125/69 09/11/23 17:30 60 16 95 09/11/23 17:25 121/71 09/11/23 17:25 63 18 95 09/11/23 17:02 77 118/96 09/11/23 17:02 17 97 09/11/23 17:00 110 H 18 97 09/11/23 16:55 109/54 L 09/11/23 16:55 158 H 20 97 09/11/23 16:53 98/85 L 09/11/23 16:53 154 H 22 96 09/11/23 16:50 155 H 09/11/23 16:41 36.5 C 122 H 20 92/61 L 97 Laboratory Results Laboratory Results WBC 5.38 K/ul (4.8-10.8) 09/11/23 16:55 RBC 4.39 M/uL (4.20-5.40) 09/11/23 16:55 Hgb 13.5 g/dl (12.0-16.0) 09/11/23 16:55 Hct 40.0 % (37.0-47.0) 09/11/23 16:55 MCV 91.1 fL (80.0-100.0) 09/11/23 16:55 MCH 30.8 pg (25.0-34.0) 09/11/23 16:55 MCHC 33.8 g/dL (32.0-36.0) 09/11/23 16:55 RDW Std Deviation 46.4 fL (36.4-46.3) H 09/11/23 16:55 RDW Coeff of Pepe 13.8 % (11.5-14.5) 09/11/23 16:55 Plt Count 170 K/uL (130-400) 09/11/23 16:55 MPV 11.2 fL (9.4-12.4) 09/11/23 16:55 Immature Gran % (Auto) 0.2 % 09/11/23 16:55 Neut % (Auto) 43.6 % 09/11/23 16:55 Lymph % (Auto) 41.4 % 09/11/23 16:55 [place] % (Auto) 11.3 % 09/11/23 16:55 Eos % (Auto) 2.6 % 09/11/23 16:55 Baso % (Auto) 0.9 % 09/11/23 16:55 Neut # (Auto) 2.34 K/uL (1.40-6.50) 09/11/23 16:55 Lymph # (Auto) 2.23 K/uL (1.20-3.40) 09/11/23 16:55 [place] # (Auto) 0.61 K/uL (0.11-0.59) H 09/11/23 16:55 Eos # (Auto) 0.14 K/uL (0.00-0.50) 09/11/23 16:55 Baso # (Auto) 0.05 K/uL (0.00-0.20) 09/11/23 16:55 Immature Gran # (Auto) 0.01 K/uL (0.01-0.20) 09/11/23 16:55 PT 13.0 Seconds (9.0-12.0) H 09/11/23 16:55 INR 1.2 (0.9-1.1) H 09/11/23 16:55 APTT 35 Seconds (21-31) H 09/11/23 16:55 PTT Ratio 1.2 09/11/23 16:55 Sodium 139 mmol/L (136-145) 09/11/23 16:55 Potassium 3.4 mmol/L (3.5-5.1) L 09/11/23 16:55 Chloride 106 mmol/L (98-107) 09/11/23 16:55 Carbon Dioxide 23 mmol/L (21-32) 09/11/23 16:55 Anion Gap 10 (3-11) 09/11/23 16:55 BUN 22 mg/dl (6-23) 09/11/23 16:55 Creatinine 0.93 mg/dl (0.6-1.2) 09/11/23 16:55 Est Cr Clr Drug Dosing 49.8 ml/min 09/11/23 16:55 Est GFR ( Amer) 69.7 ml/min 09/11/23 16:55 Est GFR (Non-Af Amer) 60.1 ml/min 09/11/23 16:55 BUN/Creatinine Ratio 23.7 (10-20) H 09/11/23 16:55 Glucose 96 mg/dl (70-99(Fasting)) 09/11/23 16:55 Calcium 9.2 mg/dl (8.6-10.3) 09/11/23 16:55 Magnesium 1.8 mg/dl (1.7-2.4) 09/11/23 16:55 Total Bilirubin 0.7 mg/dl (0.2-1.0) 09/11/23 16:55 AST 30 U/L (13-39) 09/11/23 16:55 ALT 15 U/L (7-52) 09/11/23 16:55 Alkaline Phosphatase 70 U/L (34-104) 09/11/23 16:55 Troponin I High Sens 52.2 pg/ml (0-14) H* 09/11/23 18:48 Total Protein 6.9 gm/dl (6.0-8.3) 09/11/23 16:55 Albumin 4.2 gm/dl (3.4-5.0) 09/11/23 16:55 Globulin 2.7 gm/dl (2.5-4.0) 09/11/23 16:55 Albumin/Globulin Ratio 1.6 (0.9-2) 09/11/23 16:55 TSH 0.446 uIu/ml (0.300-4.500) 09/11/23 16:55 SARS-CoV-2, RNA, NAAT NEGATIVE (NEGATIVE) 09/11/23 18:48 Impressions Chest X-Ray 09/11/23 16:56 XR chest 1V portable CLINICAL HISTORY: Dysrhythmia TECHNIQUE: Single frontal radiograph of the chest was obtained. Comparison: Comparison is made to chest radiograph 01/29/2023 FINDINGS: No lines and tubes are seen. Cardiomegaly is noted. The aortic arch is calcified. The lungs are clear. No evidence of pleural effusion or pneumothorax. IMPRESSION: No acute chest disease. ACT 112: Negative or not required by law. Electronically signed by: Fan Li M.D. 09/11/2023 5:25 PM Code Status & VTE Plan Code Status Full code VTE Prophylaxis Plan VTE Prophylaxis will be ordered: Yes PG Care Time/CCT Total # of Minutes Spent Total Time Spent with Patient: Total time spent is greater than 50% in coordination of care (as documented) at patient's floor/unit and/or counseling patient: Coding Level of Care Code 06501 INT INP/OBS CARE 3/75MIN Diagnoses Atrial fibrillation with rapid ventricular response I48.91 Chest pain R07.9 Chest pain type: unspecified Hyperlipidemia E78.5 Hypertension I10 Antiplatelet or antithrombotic long-term use Z79.02 Paroxysmal atrial fibrillation I48.0 Status post insertion of drug-eluting stent into left anterior descending (LAD) artery Z95.5 Presence of drug-eluting stent in left circumflex coronary artery Z95.5 Chronic anticoagulation Z79.01 Hypothyroidism associated with surgical procedure E89.0 Hypokalemia E87.6 (2) Chest pain Chest pain type: unspecified Qualified Code(s): R07.9 - Chest pain, unspecified
[2023-09-11] MEDS ORDERED: NITROGLYCERIN SL 0.4 MG/TAB TAB SL PRN (21:06)
[2023-09-11] MEDS ORDERED: ACETAMINOPHEN 325 MG TAB PO PRN (21:06)
[2023-09-11] MEDS ORDERED: LATANOPROST 0.005% OP SOLN 2.5 ML BTL OPL SCH (21:06)
[2023-09-11] MEDS ORDERED: ONDANSETRON INJ 2 MG/ML 2 ML VIAL IV PRN (21:06)
[2023-09-11] MEDS ORDERED: LORazepam 0.5 MG TAB PO PRN (21:06)
[2023-09-11] MEDS ORDERED: ATORVASTATIN 40 MG TAB PO SCH (21:06)
[2023-09-11] MEDS: METOPROLOL TARTRATE 25 MG TAB PO SCH (22:00)
[2023-09-12 06:51] LABS: Basophils # (auto) 0.04 K/uL (0.00-0.20); Basophils % (auto) 0.9 %; Eosinophils # (auto) 0.17 K/uL (0.00-0.50); Eosinophils % (auto) 3.7 %; Hematocrit (blood only) 34.8 % (37.0-47.0); Hemoglobin 11.4 g/dl (12.0-16.0); Immature Granulocytes # (auto) 0.01 K/uL (0.01-0.20); Immature Granulocytes % (auto) 0.2 %; Lymphocytes # (auto) 1.92 K/uL (1.20-3.40); Lymphocytes % (auto) 41.3 %; Mean Corpuscular Hemoglobin 30.5 pg (25.0-34.0); Mean Corpuscular Hgb Conc 32.8 g/dL (32.0-36.0); Mean Platelet Volume 10.9 fL (9.4-12.4); Monocytes % (auto) 12.9 %; Neutrophils # (auto) 1.91 K/uL (1.40-6.50); Platelet Count 125 K/uL (130-400); RDW Coefficient of Variation 13.9 % (11.5-14.5); RDW Standard Deviation 47.2 fL (36.4-46.3); Red Blood Count 3.74 M/uL (4.20-5.40); White Blood Count 4.65 K/ul (4.8-10.8)
[2023-09-12 07:28] LABS: Albumin Level 3.5 gm/dl (3.4-5.0); BUN Creatinine Ratio 22.4 (10-20); Calcium 8.4 mg/dl (8.6-10.3); Creatinine Clr Calc Pharmacy 71.4 ml/min; Est GFR (African American) 99.7 ml/min; Phosphorus 3.3 mg/dl (2.5-4.9)
[2023-09-12] MEDS ORDERED: ASPIRIN 81 MG ECTAB PO SCH (09:00)
[2023-09-12] MEDS ORDERED: LOSARTAN POTASSIUM 50 MG TAB PO SCH (09:00)
[2023-09-12] MEDS ORDERED: amLODIPine BESYLATE 5 MG TAB PO SCH (09:00)
[2023-09-12] MEDS ORDERED: CHOLECALCIFEROL 1,000 UNITS 25 MCG TAB PO SCH (09:00)
[2023-09-12] MEDS ORDERED: MAGNESIUM OXIDE 400 MG TAB PO SCH (09:00)
[2023-09-12] MEDS ORDERED: POTASSIUM CHLORIDE CRTAB 20 MEQ TABCR PO SCH (09:00)
[2023-09-12] MEDS ORDERED: LORATADINE 10 MG TAB PO SCH (09:00)
[2023-09-12] MEDS ORDERED: RIVAROXABAN 20 MG TAB PO SCH (09:00)
[2023-09-12] MEDS ORDERED: LEVOTHYROXINE SODIUM 88 MCG TABLET PO SCH (09:00)
[2023-09-12] MEDS: METOPROLOL TARTRATE 25 MG TAB PO SCH (10:05)
--- NOTE | 2023-09-12 14:48 | XCELERA ---
[id number] \\[facility]_PDF_Reports\[id number]}___[id number].pdf
--- NOTE | 2023-09-12 14:59 | Discharge Summary ---
Discharge Summary Date of Service September 12, 2023 Admission HPI Per Admitting Provider The patient is a 77-year-old female with a past medical history including paroxysmal atrial fibrillation, CAD, hypertension, hyperlipidemia, postsurgical hypothyroidism, pyelonephritis, drug-eluting stent in the LAD, drug-eluting stent in the left circumflex coronary artery on chronic anticoagulation with Xarelto. The patient presents emergency department as noted above. Along with the return of A-fib atrial fibrillation VR, she did develop chest discomfort, which improved once her rate was controlled in the emergency department. She denies any recent change in activities, eating or drinking patterns. She denies any recent travels or sick exposures. Principal Dx & Hospital Course #1 = Principal Diagnosis (1) Atrial fibrillation with rapid ventricular response: (2) Chest pain: (3) Hyperlipidemia: (4) Hypertension: (5) Antiplatelet or antithrombotic long-term use: (6) Paroxysmal atrial fibrillation: (7) Status post insertion of drug-eluting stent into left anterior descending (LAD) artery: (8) Presence of drug-eluting stent in left circumflex coronary artery: (9) Chronic anticoagulation: (10) Hypothyroidism associated with surgical procedure: (11) Hypokalemia: Plan Atrial fibrillation with RVR/PAF/hypertension/LAD stent/left circumflex artery stent/hypertension- The patient had taken her usual Toprol tartrate 25 mg in the morning, and then took additional 25 mg 430 prior to come to the ED. She was given diltiazem 10 mg IV bolus followed by diltiazem drip in ED, which was discontinued when she converted to sinus rhythm She was admitted to telemetry for serial cardiac enzymes which were minimally elevated and stable at 56/52 Her TSH was normal Echocardiogram showed EF 65-70%, no regional wall motion abnormalities, mild to moderate LVH Continue losartan 100 mg continue metoprolol tartrate 25 mg p.o. twice daily Optimized her potassium and magnesium with IV and oral replacement Continued Xarelto, aspirin She converted to a normal sinus rhythm and felt much improved. I discussed her care with the on-call steel worker who agreed to not make any changes in her medication regimen or add antiarrhythmics as her A-fib is so rare. Follow-up with her outpatient steel worker is recommended Electrolyte disturbances- Replaced as above Hyperlipidemia- Continue atorvastatin Her hemoglobin, platelets, and WBC count were all mildly decreased from previous which is suspected to be dilutional from IV fluids-follow as an outpatient Disposition-she was much improved after she spontaneously converted to normal sinus rhythm and will be discharged home with close outpatient cardiology follow-up Discharge Exam Constitutional WD/WN, vitals as above Respiratory normal respiratory effort, lungs clear to auscultation Cardiovascular RRR, no murmur, no edema Gastrointestinal (Abdomen) normal bowel sounds, soft, nontender, no hepatosplenomegaly Psychiatric A+Ox3, euthymic affect Updated Medication List Medication Instructions Recorded Confirmed Type aspirin 81 mg tablet,delayed 81 mg PO QAM 12/19/18 09/27/23 History release cholecalciferol (vitamin D3) 50 2,000 unit PO QAM 12/19/18 09/27/23 History mcg (2,000 unit) tablet (Vitamin D3) loratadine 10 mg capsule 10 mg PO QAM Allergy Symptoms 12/19/18 09/27/23 History desonide 0.05 % topical cream 1 appln topical BID PRN Dry Skin 07/10/19 09/27/23 History nitroglycerin 0.4 mg sublingual 0.4 mg sublingual Q5M PRN chest 05/01/22 09/27/23 Rx tablet pain #30 tabs latanoprost 0.005 % eye drops 1 drp OPL HS 12/04/22 09/27/23 History alendronate 70 mg tablet (Fosamax) 70 mg PO WK #12 tabs 02/13/23 09/27/23 Rx metoprolol tartrate 25 mg tablet 25 mg PO BID #180 tabs 07/02/23 09/27/23 Rx atorvastatin 80 mg tablet 80 mg PO HS #90 tabs 08/13/23 09/27/23 Rx levothyroxine 88 mcg tablet 88 mcg PO Q OTHER DAY 09/11/23 09/27/23 History losartan 100 mg tablet 100 mg PO QAM 09/11/23 09/27/23 History rivaroxaban 20 mg tablet (Xarelto) 20 mg PO QAM 09/11/23 09/27/23 History magnesium oxide 400 mg (241.3 mg 400 mg PO DAILY #30 tabs 09/12/23 09/27/23 Rx magnesium) tablet levothyroxine 75 mcg tablet 75 mcg PO Q OTHER DAY #45 tabs 09/18/23 09/27/23 Rx lorazepam 0.5 mg tablet 0.5 mg PO DAILY PRN Anxiety #30 09/26/23 09/27/23 Rx tabs amlodipine 2.5 mg tablet 2.5 mg PO QAM #90 tabs 09/27/23 09/27/23 Rx digoxin 125 mcg (0.125 mg) tablet 125 mcg PO DAILY #90 tabs 09/27/23 09/27/23 Rx dorzolamide 22.3 mg-timolol 6.8 1 drp ophthalmic (eye) BID 09/27/23 09/27/23 History mg/mL eye drops Hospital Stay Data Consultations 09/11/23 19:08 ED Decision to Admit Stat Pending Results Patient Have Any Pending Studies at Discharge: No Discharge Instructions Given to Patient (Per Discharging Provider) You were admitted with rapid atrial fibrillation and then spontaneously con verted back to a normal heart rhythm. You had a mild elevation in your troponin level but did not have a heart attack. This was from strain on the heart from the rapid heart rate. You were given some extra magnesium and potassium to optimize your electrolytes for the heart and should stay on a once daily magnesium supplement. Your care was discussed with the production cost estimator [place] and he agrees that we should not make any changes to your medications at this time. If you have more frequent recurrences of your atrial fibrillation, then something else may have to be done in the future. Please follow up with Dr. Carmona within 2-3 weeks. Total Time Total Time Spent Total Time Spent (In Minutes): 35 minutes Coding Level of Care Code 12773 INP/OBS DISCH >30 MIN Diagnoses Atrial fibrillation with rapid ventricular response I48.91 Chest pain R07.9 Chest pain type: unspecified Hyperlipidemia E78.5 Hypertension I10 Antiplatelet or antithrombotic long-term use Z79.02 Paroxysmal atrial fibrillation I48.0 Status post insertion of drug-eluting stent into left anterior descending (LAD) artery Z95.5 Presence of drug-eluting stent in left circumflex coronary artery Z95.5 Chronic anticoagulation Z79.01 Hypothyroidism associated with surgical procedure E89.0 Hypokalemia E87.6
[2023-09-13] MEDS ORDERED: LEVOTHYROXINE SODIUM 75 MCG TABLET PO SCH (09:00)
--- NOTE | 2023-09-14 06:29 | Electrocardiogram Report ---
Test Reason : Blood Pressure : / mmHG Vent. Rate : 173 BPM Atrial Rate : 000 BPM P-R Int : 000 ms QRS Dur : 062 ms QT Int : 240 ms P-R-T Axes : 000 012 202 degrees QTc Int : 407 ms Atrial fibrillation with rapid ventricular response Nonspecific ST and T wave abnormality Abnormal ECG When compared with ECG of 29-JAN-2023 16:48, Atrial fibrillation has replaced Sinus rhythm Vent. rate has increased BY [address] now depressed in Anterolateral leads Confirmed by Dima Alcantara ([id number]) on 09/14/2023 6:28:47 AM Referred By: REFERRED SELF Confirmed By:Dima Alcantara
--- NOTE | 2023-09-14 18:09 | Electrocardiogram Report ---
Test Reason : Blood Pressure : / mmHG Vent. Rate : 060 BPM Atrial Rate : 060 BPM P-R Int : 138 ms QRS Dur : 066 ms QT Int : 436 ms P-R-T Axes : -17 003 050 degrees QTc Int : 436 ms Normal sinus rhythm Minimal voltage criteria for LVH, may be normal variant ( R in aVL ) Borderline ECG When compared with ECG of 11-SEP-2023 16:48, Sinus rhythm has replaced Atrial fibrillation Vent. rate has decreased BY [address] no longer depressed in Anterolateral leads Confirmed by Dima Alcantara ([id number]) on 09/14/2023 6:08:52 PM Referred By: REFERRED SELF Confirmed By:Dima Alcantara
--- NOTE | 2023-09-14 18:18 | Electrocardiogram Report ---
Test Reason : Blood Pressure : / mmHG Vent. Rate : 065 BPM Atrial Rate : 065 BPM P-R Int : 132 ms QRS Dur : 068 ms QT Int : 426 ms P-R-T Axes : 011 010 058 degrees QTc Int : 443 ms Normal sinus rhythm Minimal voltage criteria for LVH, may be normal variant Borderline ECG When compared with ECG of 11-SEP-2023 17:35, No significant change was found Confirmed by Dima Alcantara ([id number]) on 09/14/2023 6:18:17 PM Referred By: REFERRED SELF Confirmed By:Dima Alcantara
== END 2023-09-12 17:18 | disposition home or self-care (01) ==
LOC: 2E 16:38 → ED 16:38 → SUATTDRO 20:24 → 2E 20:46

== ENCOUNTER 2025-02-07 16:24 | Inpatient (IN) ==
--- OUTSIDE RECORDS SUMMARY | 2025-02-07 16:29 | External Medical Summary | Continuity of Care Document ---
Author Name Unknown Organization [facility] [address] [facility] 2 Address [address] [id number] Care Team Providers Care Or Nurse Manager Name Role Phone Carlos Enrique [place] Primary Care Physician [phone] [facility] [id number] Date(s): 12/30/24 - 12/30/[address] [facility] [address] [facility] 2 [place], [place] [id number] Encounter Diagnosis [place] (actinic keratosis)(Discharge Diagnosis) - 12/30/24 Seborrheic keratoses(Discharge Diagnosis) - 12/30/24 Lentigines(Discharge Diagnosis) - 12/30/24 Discharge Disposition: Home or Self Care Attending Physician: MD Woo Thomas A Encounter Type: Clinic Allergies, Adverse Reactions, Alerts Substance Criticality Severity Reaction Reaction Severity Status Tylox nightmares Active Cymbalta Unable to assess criticality Moderate Mood swings Active turkey diarrheas vomiting Active Assessment and Plan Extracted from: Title:Clinical Document Author:MD Amna, Jennifer Flores Date:12/30/24 OUTPATIENT NOTE Name: KLYEE LARSON I Patient Number:[id number] : 1945 Date of Service: 12/30/2024 _ Kylee Larson returns for reevaluation. Keratotic papule noted on the superior chest was treated with cryotherapy as an actinic keratosis with patient consent. Side effects discussed. She notes that her skin dryness continues and she is currently using Vaseline petroleum jelly after showering. Her skin does appear improved from previously. Review of systems medications allergies as noted on the chart. Examination reveals pleasant well-nourished white female type I skin. Examination of the head, neck, back, chest, arms, hands, fingers, abdominal area, legs, feet, and toes reveals scattered seborrheic keratoses, lentigines in sun exposed areas, tinea onychomycosis and is otherwise unremarkable. Patient will return in 1 year for reevaluation. Medications Aleve Start: 08/01/22 8:01:00 AM EST, 220 mg =, PO, q8h, PRN: prn pain Start Date: 08/01/22 Status: Ordered Repeat number: 1 amLODIPine 2.5 mg oral tablet Start: 04/30/23 9:14:00 AM EDT, 1 tab, PO, Daily Start Date: 04/30/23 Status: Ordered Repeat number: 1 aspirin 81 mg oral delayed release tablet Start: 08/01/21 11:01:00 AM EST, 1 tab, PO, Daily Start Date: 08/01/21 Status: Ordered Repeat number: 1 Ativan 0.5 mg oral tablet Start: 08/01/21 11:00:00 AM EST, 1 tab, PO, Daily, PRN: as needed for anxiety Start Date: 08/01/21 Status: Ordered Repeat number: 1 atorvastatin 80 mg oral tablet Start: 08/01/21 10:58:00 AM EST, 1 tab, PO, Daily Start Date: 08/01/21 Status: Ordered Repeat number: 1 Combigan 0.2%-0.5% ophthalmic solution Start: 08/01/21 10:59:00 AM EST, 1 drop, both eyes, q12h Start Date: 08/01/21 Status: Ordered Repeat number: 1 Cranberry Start: 05/15/23 9:00:00 AM EDT, 1 tab, PO, Daily Start Date: 05/15/23 Status: Ordered Repeat number: 1 desonide 0.05% topical lotion Start: 08/01/21 11:01:00 AM EST, 1 appl, topical, bid, apply to eyelids prn, PRN: discomfort Start Date: 08/01/21 Status: Ordered Repeat number: 1 digoxin 125 mcg (0.125 mg) oral tablet Start: 12/25/23 1:51:00 PM EDT, 0.5 tab, PO, Daily Start Date: 12/25/23 Status: Ordered Repeat number: 1 dorzolamide-timolol ophthalmic Start: 08/01/22 7:57:00 AM EST, 1 drop, left eye, bid Start Date: 08/01/22 Status: Ordered Repeat number: 1 Fosamax 70 mg oral tablet Start: 08/01/21 11:00:00 AM EST, 1 tab, PO, q7days, QSUNDAY Start Date: 08/01/21 Status: Ordered Repeat number: 1 latanoprost 0.005% ophthalmic solution Start: 07/20/22 2:49:00 PM EDT, 1 drop, left eye, qhs Start Date: 07/20/22 Status: Ordered Repeat number: 1 levothyroxine 75 mcg (0.075 mg) oral tablet Start: 08/01/21 10:57:00 AM EST, 1 tab, PO, q48h Start Date: 08/01/21 Status: Ordered Repeat number: 1 levothyroxine 88 mcg (0.088 mg) oral tablet Start: 08/01/21 10:56:00 AM EST, 1 tab, PO, q48h, alternates with the 75mcg every other day. Start Date: 08/01/21 Status: Ordered Repeat number: 1 loratadine 10 mg oral tablet Start: 08/01/21 11:00:00 AM EST, 1 tab, PO, Daily Start Date: 08/01/21 Status: Ordered Repeat number: 1 losartan 100 mg oral tablet Start: 08/01/21 10:57:00 AM EST, 1 tab, PO, Daily Start Date: 08/01/21 Status: Ordered Repeat number: 1 lysine Start: 05/15/23 9:01:00 AM EDT, 1 tab, PO, Daily Start Date: 05/15/23 Status: Ordered Repeat number: 1 magnesium citrate Start: 04/30/23 9:19:00 AM EDT, 1 tablet, PO, Daily Start Date: 04/30/23 Status: Ordered Repeat number: 1 Metoprolol Tartrate 25 mg oral tablet Start: 08/01/21 10:58:00 AM EST, 1 tab, PO, bid Start Date: 08/01/21 Status: Ordered Repeat number: 1 nitroglycerin 0.4 mg sublingual tablet Start: 06/23/22 12:51:00 PM EDT, 1 tab, SL, q5min, Disp# 100 tab, PRN: as needed for chest pain Start Date: 06/23/22 Status: Ordered Quantity: 100.0 Unit: tab Repeat number: 1 oxyCODONE 5 mg oral tablet Start: 05/22/23 2:31:00 PM EDT, 1 tab, PO, q6h, Disp# 5 tab, Refills: 0, Pharmacy: [facility] Start Date: 05/22/23 Status: Ordered Quantity: 5.0 Unit: tab Repeat number: 1 Vitamin D3 Start: 08/01/21 11:01:00 AM EST, 1,250 mcg =, PO, Daily Start Date: 08/01/21 Status: Ordered Repeat number: 1 Xarelto 20 mg oral tablet 1 tab, PO, Daily Start Date: 10/12/22 Status: Ordered Repeat number: 1 Mental Status 12/30/24 Barriers to Learning one year None evide nt Mandatory Health Literacy Documentation Yes Health Literacy Communication Barriers N ever Primary Language [place] Island[place] Problem List Condition Confirmation Course Effective Dates Status Health St atus Informant Hypertension Confirmed Active Hypothyroidism Confirmed Active Lumbar spine pain Confirmed Active Preop testing Confirmed Active Pulmonary embolism Confirmed Active Diagnosis Diagnosis Type Effective Dates Health Status Clinical Service Informant [place] (actinic keratosis) Discharge Diagnosis 12/30/24 Lentigines Discharge Diagnosis 12/30/24 Seborrheic keratoses Discharge Diagnosis 12/30/24 Procedures Procedure Date Related Diagnosis Body Site Status LAMINOTOMY SINGLE LUMBAR 08/01/22 Completed Cardiovascular stress testing 10/2015 Completed Endoscopy 12/22/10 Completed Cardiac catheter 1 11/16/10 Comple asad Cardiovascular stress testing 10/27/10 Completed Cardiac catheter 10/26/10 Complete d Stent placement 2010 Completed Laminectomy with excision of herniated intervertebral disc, nucleus pulposus 07/2008 Completed Laminectomy and discectomy 1998 Completed Cholecystectomy 1992 Completed Complete thyroidectomy 05/1986 Co mpleted Exploratory laparotomy 1981 Co mpleted Tubal ligation Completed 12 stents placed Social History Social History Type Response Smoking Status Never smoked cigaret lara Sex Female Sex Representation Female (finding) Outpatient Note * MD Amna, Antelmo Flores: PERFORM Event Display: .Outpt Note Authored Date: [id number] OUTPATIENT NOTE Name: KYLEE LARSON Hawa Patient Number:[id number] : 1945 Date of Service: 12/30/2024 _ Kylee Larson returns for reevaluation. Keratotic papule noted on the superior chest was treated with cryotherapy as an actinic keratosis with patient consent. Side effects discussed. She notes that her skin dryness continues and she is currently using Vaseline petroleum jelly aftershowering. Her skin does appear improved from previously. Review of systems medications allergies as noted on the chart. Examination reveals pleasant well-nourished white female type I skin. Examination of the head, neck, back, chest, arms, hands, fingers, abdominal area, legs, feet, and toes reveals scattered seborrheic keratoses, lentigines in sun exposed areas, tinea onychomycosis and is otherwise unremarkable. Patient will return in 1 year for reevaluation. Electronic Signature on File Electronically Reviewed/Signed by: Antelmo Woo MD Author Signature Dt/Tm:12/30/2024 11:02 AM Department of Dermatology [facility] Patient Care team information Care Team Personnel Name: Raghu Posadas Erika Joy Position: Pharmacist Member Role: Pharmacy - Lifetime Name: DO [place] Philip A Position: Referring Member Role: Primary Care Provider Address: [address] [place] [address] Telecom: [phone] Care Team Related Persons Name: JAVI CRUZ Name: EVELYN LARSON Insurance Providers Guarantor name: KYLEE HUTTON I [employer] Health Plan Information #: 1 Payer: MEDICARE Member Number: [id number] Policy Number: NA Group Number: NA Health Plan Information #: 2 Payer: [facility] [employer] Member Number: [id number] Policy Number: NA Group Number: [id number] Health Plan Information #: 3 Payer: SELF PAY Member Number: NA Policy Number: NA Group Number: NA
--- NOTE | 2025-02-07 16:39 | Emergency Department Note ---
Impression & Plan Chest tightness, Hypertension, Paroxysmal atrial fibrillation ED Provider Note NAME: REGIS LARSON AGE: 79 SEX: F : 1945 ARRIVES VIA: Walk-In INFORMANT: Patient ED PROVIDER(S): Elmer Cummins MD CHIEF COMPLAINT: Chest tightness, shortness of breath, elevated blood pressure, fast heart rate PLAN: Disposition: Admit MEDICAL DECISION MAKING: The patient is a pleasant 79-year-old woman with a past medical history of CAD with history of PCI, paroxysmal atrial fibrillation on Xarelto, hypertension, hyperlipidemia, hypothyroidism who presents to the emergency department via walk-in, accompanied by her for evaluation of chest/throat tightness, shortness of breath and fast heart rate and elevated blood pressure that began this afternoon and remained constant up until arrival. The patient reports she noticed her heart rate was in the 110s and given her history of atrial fibrillation took an extra 25 mg dose of her metoprolol. Patient reports she had been shopping and had just returned home when symptoms began. Otherwise she denies any fevers, chills, cough, congestion. On evaluation patient is no acute distress, afebrile with blood pressure initially in the 170s/90s in triage but with subsequent improvement. Vital signs otherwise stable. She appears clinically dry. Lungs are clear. She exhibits no focal neurologic deficits. EKG without overt acute ischemia. CXR negative for acute cardiopulmonary process per my personal preliminary review/interpretation. WBC, H/H and platelets within normal limits. Chemistry without metabolic acidosis. Electrolytes and FTs without significant abnormality. Lipase is normal. Initial high-sensitivity troponin 64, similar to prior chronic elevations with delta 2-hour troponin 53.6. UA without convincing evidence of infection. CTA of the chest was performed and was negative for acute aortic pathology or PE. Note is made of a dilated pulmonary artery. Upon evaluation patient did report feeling some improvement after IV fluid hydration. However given the patient's symptoms in the setting of her elevated blood pressure prior to arrival and her risk factors patient does agree with plan for admission for further management. Case was discussed with Dr. Zimmer, [facility] hospitalist, who will evaluate the patient for admission. Further management per admitting team. Triage Nursing notes reviewed and agree them. Prior/external medical records reviewed Vital Signs: reviewed Differential diagnosis: Cardiac ischemia, aortic dissection, pulmonary embolism, pneumothorax, pneumonia, pericarditis, myocarditis, esophageal rupture, GERD, cholecystitis, pancreatitis, musculoskeletal, as well as other pathologies. ER treatment provided: See below. Diagnostics interpreted by me: ECG: Normal sinus rhythm, 71 bpm, LVH, no overt ST elevation or depression, QTc 425, QRS 66. Cardiac Monitoring: An order for continuous cardiac monitoring was placed and demonstrated Normal sinus rhythm, 71 bpm, LVH. Laboratory studies: See below Imaging studies: See below Consultation(s): Dr. Zimmer, [facility] hospitalist. HPI: Per MDM. ROS: See above HPI for pertinent positives & negatives. A total of 10 systems reviewed and were otherwise negative. VITALS:See Below PHYSICAL EXAMINATION: GENERAL: Awake, alert, in no distress HENT: Normocephalic, atraumatic. Oropharynx with dry mucous membranes and otherwise unremarkable. EYES: Normal conjunctiva. Sclera non-icteric. NECK: Supple. No nuchal rigidity. FROM. No JVD. RESPIRATORY: Clear to auscultation. CARDIAC: Regular rate, normal rhythm. Extremities warm and well perfused. Pulses equal. ABDOMEN: Soft, non-distended. No tenderness to palpation. No rebound or guarding. No masses. MUSCULOSKELETAL: Chest examination reveals no tenderness. The back is symmetrical on inspection without obvious abnormality. There is no CVA tenderness to palpation. No joint edema. LOWER EXTREMITIES: Calves are equal size bilaterally and non-tender. No edema. No discoloration. NEURO: Normal sensorium. No sensory or motor deficits noted. SKIN: No rash or jaundice noted. Elmer Cummins MD Past Med/Surg History Problem List (Updated 02/08/25 @ 03:53 by Elmer Cummins MD) Hypertension (Acute) Chest tightness (Acute) Tachycardia Osteoporosis Encounter for monitoring digoxin therapy Cervical radiculopathy (Chronic) Coronary artery disease (Chronic) Heart disease (Chronic) Hypertension (Chronic) Hyperlipidemia Hypertension (Acute) Anxiety Hypothyroidism associated with surgical procedure Glaucoma Osteopenia Antiplatelet or antithrombotic long-term use Acute pyelonephritis (Acute) UTI (urinary tract infection) (Acute) Overactive bladder Paroxysmal atrial fibrillation (Acute) Urinary frequency Incontinence Central stenosis of spinal canal Status post insertion of drug-eluting stent into left anterior descending (LAD) artery Presence of drug-eluting stent in left circumflex coronary artery Chronic anticoagulation Lumbar radiculopathy Lumbar stenosis with neurogenic claudication Lumbar foraminal stenosis Other spondylosis with radiculopathy, lumbar region COVID-19 (Acute) CAD (coronary artery disease) Hypothyroidism Normal cardiac stress test Normal left ventricular systolic function and wall motion Medical History Vitamin D insufficiency Segmental and somatic dysfunction of upper extremity Segmental and somatic dysfunction of thoracic region Segmental and somatic dysfunction of rib cage Elevated liver enzymes Dyslipidemia Degeneration of 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 Cervical somatic dysfunction UTI (urinary tract infection) Elevated troponin Septic shock History of colon polyps Osteoarthritis Degenerative disc disease Hypothyroidism History of Graves' disease Anxiety Glaucoma Migraine Pulmonary embolism 2012--unknown origin Elevated troponin I level Pulmonary embolism Surgical History H/O lumbosacral spine surgery History of bilateral tubal ligation History of lumbar discectomy x3 L4-L5 History of cholecystectomy History of colonoscopy History of esophagogastroduodenoscopy (EGD) History of tooth extraction upper teeth removed History of parathyroidectomy with thyroidectomy History of thyroidectomy, total 1985--enlarged thyroid, Grave's Disease History of heart artery stent 10/2010 2 stents History of cardiac cath 10/2010 x2 Family History Grandmother (Maternal) Family history of diabetes mellitus Grandmother (Paternal) Family history of diabetes mellitus Father Myocardial infarction Other No family history of adverse response to anesthesia Denies family history of Ovarian cancer Prostate cancer Breast cancer Colorectal cancer Social History Smoking Status: Former smoker Tobacco Type: Cigarettes Age Started Using Tobacco: 20; Age Quit Using Tobacco: 69; packs per day: 0.5; Second Hand Exposure: No; Do You Dip or Chew Tobacco: No; Hx Alcohol Use: No Hx Substance Use: No Preferred Language: Chinese Communication Ability: Effective Visual Impairment: No Limitations Hearing Ability: Use of Hearing Aid Email Designer Required: No Beliefs That Will Affect Care: None marital status: Current Living Situation: Spouse Current Living Situation Comment: lives w/ current occupational status: retired How many Children do You have: 1 Other Information That Helps Us Care for You: No Feels Safe at Home: Yes Safety Concerns: Feels Safe At This Time Childhood Exposure to Second-Hand Smoke: Yes Diet: regular caffeine: Yes during the past year weight has: remained stable Dental Care, Regularly: No Physical Activity Frequency: Daily Seatbelt Use: always Sunscreen Use: Yes Assistive Devices: Denture - Upper, Denture - Lower, Glasses and Hearing Aid - Bilateral Allergies Allergies Allergy/AdvReac Type Severity Reaction Status Date / Time duloxetine AdvReac Intermediate "I was on Verified 11/11/24 10:27 an emotional roller coaster" oxycodone AdvReac Intermediate nightmares Verified 11/11/24 10:27 turkey AdvReac Intermediate nausea/vomi Verified 11/11/24 10:27 ting phenazopyridine [From Azo] AdvReac Mild Shakiness Verified 11/11/24 10:27 Home Meds Home Medications Medication Instructions Recorded Confirmed aspirin 81 mg tablet,delayed 81 mg PO QAM 12/19/18 02/07/25 release cholecalciferol (vitamin D3) 50 2,000 unit PO QAM 12/19/18 02/07/25 mcg (2,000 unit) tablet (Vitamin D3) loratadine 10 mg capsule 10 mg PO QAM Allergy Symptoms 12/19/18 02/07/25 desonide 0.05 % topical cream 1 appln topical BID PRN Dry Skin 07/10/19 02/07/25 latanoprost 0.005 % eye drops 1 drp OPB HS 12/04/22 02/07/25 brimonidine 0.2 %-timolol 0.5 % 1 drp OPB BID 02/07/25 02/07/25 eye drops levothyroxine 75 mcg tablet 75 mcg PO DAILYBB 02/07/25 02/07/25 Previous Rx's Medication Instructions Recorded nitroglycerin 0.4 mg sublingual 0.4 mg sublingual Q5M PRN chest 05/01/22 tablet pain #30 tabs magnesium oxide 400 mg (241.3 mg 400 mg PO DAILY #30 tabs 09/12/23 magnesium) tablet lorazepam 0.5 mg tablet 0.5 mg PO DAILY PRN Anxiety #30 09/26/23 tabs metoprolol tartrate 25 mg tablet 25 mg PO BID #180 tabs 06/25/24 atorvastatin 80 mg tablet 80 mg PO HS #90 tabs 08/15/24 ibandronate 150 mg tablet 150 mg PO MONTHLY #3 tabs 08/25/24 losartan 100 mg tablet 100 mg PO QAM #90 tabs 09/01/24 digoxin 125 mcg (0.125 mg) tablet 125 mcg PO DAILY #90 tabs 09/18/24 rivaroxaban 20 mg tablet (Xarelto) 20 mg PO QAM #90 tabs 10/09/24 Results & Data (ED) Vital Signs Vital Signs - 24 hr 02/07/25 16:25 02/07/25 16:40 02/07/25 16:45 Temperature 36.9 C Temperature Source Temporal Artery Scan Pulse Rate 85 68 Pulse Rate from SpO2 Sensor Respiratory Rate 16 Respiratory Effort / Characteristics Non-Labored Spontaneous Respiratory Depth Normal Blood Pressure 172/98 H Blood Pressure Mean 122 Blood Pressure Position Sitting Pulse Oximetry 97 97 Oxygen Delivery Method Room Air Room Air Sepsis Recent Fever Within 48 Hours No Sepsis New/Unexplained Change in Mental Status N/A Sepsis Action Taken by Nursing No Action Required 02/07/25 16:51 02/07/25 16:57 02/07/25 17:06 Temperature Temperature Source Pulse Rate 66 64 63 Pulse Rate from SpO2 Sensor 66 64 62 Respiratory Rate 24 18 18 Respiratory Effort / Characteristics Respiratory Depth Blood Pressure 136/73 Blood Pressure Mean 94 Blood Pressure Position Pulse Oximetry 97 95 95 Oxygen Delivery Method Sepsis Recent Fever Within 48 Hours Sepsis New/Unexplained Change in Mental Status Sepsis Action Taken by Nursing 02/07/25 17:24 02/07/25 18:33 02/07/25 19:00 Temperature Temperature Source Pulse Rate 64 58 L 56 L Pulse Rate from SpO2 Sensor 64 59 L Respiratory Rate 22 17 15 Respiratory Effort / Characteristics Respiratory Depth Blood Pressure 158/78 H 149/67 H 167/88 H Blood Pressure Mean 104 94 118 Blood Pressure Position Pulse Oximetry 95 96 96 Oxygen Delivery Method Sepsis Recent Fever Within 48 Hours Sepsis New/Unexplained Change in Mental Status Sepsis Action Taken by Nursing 02/07/25 20:00 02/07/25 20:30 02/07/25 20:39 Temperature Temperature Source Pulse Rate 52 L 60 56 L Pulse Rate from SpO2 Sensor Respiratory Rate 16 15 Respiratory Effort / Characteristics Respiratory Depth Blood Pressure 137/105 H 137/105 H Blood Pressure Mean 109 115 Blood Pressure Position Pulse Oximetry 98 97 Oxygen Delivery Method Sepsis Recent Fever Within 48 Hours Sepsis New/Unexplained Change in Mental Status Sepsis Action Taken by Nursing 02/07/25 21:02 Temperature Temperature Source Pulse Rate 55 L Pulse Rate from SpO2 Sensor Respiratory Rate 24 Respiratory Effort / Characteristics Respiratory Depth Blood Pressure 202/146 H Blood Pressure Mean 148 Blood Pressure Position Pulse Oximetry 99 Oxygen Delivery Method Sepsis Recent Fever Within 48 Hours Sepsis New/Unexplained Change in Mental Status Sepsis Action Taken by Nursing Laboratory Data Attestation: I reviewed the patient's lab results. 02/07/25 16:42 02/07/25 16:42 Lab Results 02/07/25 02/07/25 02/07/25 Range/Units 16:42 17:22 18:30 WBC 6.10 (4.8-10.8) K/ul RBC 4.49 (4.20-5.40) M/uL Hgb 13.6 (12.0-16.0) g/dl Hct 40.6 (37.0-47.0) % MCV 90.4 (80.0-100.0) fL MCH 30.3 (25.0-34.0) pg MCHC 33.5 (32.0-36.0) g/dL RDW Std Deviation 48.8 H (36.4-46.3) fL RDW Coeff of Pepe 14.6 H (11.5-14.5) % Plt Count 149 (130-400) K/uL MPV 10.7 (9.4-12.4) fL Immature Gran % (Auto) 0.2 % Neut % (Auto) 56.2 % Lymph % (Auto) 33.4 % [place] % (Auto) 7.2 % Eos % (Auto) 2.3 % Baso % (Auto) 0.7 % Neut # (Auto) 3.43 (1.40-6.50) K/uL Lymph # (Auto) 2.04 (1.20-3.40) K/uL Carroll # (Auto) 0.44 (0.11-0.59) K/uL Eos # (Auto) 0.14 (0.00-0.50) K/uL Baso # (Auto) 0.04 (0.00-0.20) K/uL Immature Gran # (Auto) 0.01 (0.01-0.20) K/uL PT 12.9 H (9.0-12.0) Seconds INR 1.2 H (0.9-1.1) Sodium 139 (136-145) mmol/L Potassium 4.0 (3.5-5.1) mmol/L Chloride 107 (98-107) mmol/L Carbon Dioxide 23 (21-32) mmol/L Anion Gap 9 (3-11) BUN 11 (6-23) mg/dl Creatinine 0.76 (0.6-1.2) mg/dl Est Cr Clr Drug Dosing Not Reportable eGFR 80.66 BUN/Creatinine Ratio 14.5 (10-20) Glucose 129 H (70-99(Fasting)) mg/dl Calcium 9.3 (8.6-10.3) mg/dl Phosphorus 2.6 (2.5-4.9) mg/dl Magnesium 2.0 (1.7-2.4) mg/dl Total Bilirubin 0.8 (0.2-1.0) mg/dl AST 37 (13-39) U/L ALT 25 (7-52) U/L Alkaline Phosphatase 82 (34-104) U/L Troponin I High Sens 64.3 H* 53.6 H* D (0-14) pg/ml Total Protein 7.5 (6.0-8.3) gm/dl Albumin 4.4 (3.4-5.0) gm/dl Globulin 3.1 (2.5-4.0) gm/dl Albumin/Globulin Ratio 1.4 (0.9-2) Lipase 57 (11-82) U/L Urine Color Yellow Urine Appearance Clear (Clear) Urine pH 7.0 (4.5-7.5) Ur Specific [place] 1.004 (1.000-1.030) Urine Protein Negative (Negative) Urine Glucose (UA) Negative (Negative) Urine Ketones Negative (Negative) Urine Blood Negative (Negative) Urine Nitrite Negative (Negative) Urine Bilirubin Negative (Negative) Urine Urobilinogen Negative (Negative) Ur Leukocyte Esterase Negative (Negative) Urine Comment Administered Medications Hydralazine HCl (Hydralazine 10 Mg Tab) 10 mg PO TID PRN PRN Reason: for BP > 180/110 mmHg Stop: 03/10/25 08:59 Last Admin: 02/08/25 00:14 Dose: 10 mg Documented By: EFK Timolol Maleate (Timolol Maleate 0.5% Op Soln 5 Ml Btl) 1 drops OP BID TAY Stop: 03/09/25 23:54 Last Admin: 02/08/25 00:15 Dose: 1 drops Documented By: EFK Discontinued Medications Sodium Chloride (Nss) 500 mls @ 999 mls/hr IV .Q31M ONE Stop: 02/07/25 18:05 Last Infusion: 02/07/25 19:00 Dose: Infused Documented By: Admin: 02/07/25 18:10 Dose: 999 mls/hr Documented By: [email or web address] Ioversol (Optiray 320 125ml) 119 ml IV ONCE ONE Stop: 02/07/25 17:56 Last Admin: 02/07/25 17:55 Dose: 119 ml Documented By: EDK Imaging Data Radiologist's Impression: Chest X-Ray 02/07/25 16:40 Chest radiograph, one view History: Chest pain Comparison: 09/11/2023 Findings: Single AP view of the chest performed. No focal consolidation or pleural effusion. No pneumothorax. The cardiomediastinal silhouette is within normal limits. Normal pulmonary vascularity. No evidence for lymphadenopathy. No visualized bony or soft tissue abnormality. Impression: Normal chest radiograph Electronically signed by Chriss Alvarenga 02-07-2025 5:05 PM Chest CTA 02/07/25 17:35 EXAM: CT angio chest dissec wo/w con CLINICAL HISTORY: Chest pain, HTN TECHNIQUE: CT angiography of the chest was performed with and without intravenous contrast 119 ml Optiary administrated, with the following protocol: axial images with, reconstructed coronal and sagittal images. One of these 3D techniques was utilized: Maximum Intensity Pixel (MIP), 3D Reconstructed Images, Volume Rendered Images, Surface Shaded Rendering. One of the following dose reduction techniques was utilized for this exam: Automated exposure control, adjustment of the mA and/or kV according to patient size, and use of iterative reconstruction. 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 FINDINGS: Aorta and Great Vessels: Ascending Aorta: Normal in caliber, no aneurysm, dissection, or significant atherosclerosis. Aortic Arch: Normal in caliber, no aneurysm, dissection, or significant atherosclerosis. Descending Aorta: Normal in caliber, no aneurysm, dissection, or significant atherosclerosis. Pulmonary Arteries: The main pulmonary artery is dilated to 34.7 mm, and its branches are patent. No evidence of pulmonary embolism or significant stenosis. Heart: Cardiac Chambers: Normal in size. No evidence of cardiomegaly. Pericardium: No pericardial effusion or thickening. Lungs and Pleura: No evidence of consolidation, collapse, or focal lesions. Paraseptal emphysema. No pleural effusion or pleural thickening. Basal and lingual lung cysts. Mediastinum: Small reactive right paratracheal, subcarinal, and right hilar lymph node groups. Normal appearance of the trachea and central bronchi. Hilar Structures: Hilar structures are normal without enlargement. Chest Wall: No mass lesions or abnormalities in the chest wall. Vascular Structures: Superior Vena Cava: Patent without evidence of stenosis or thrombus. Inferior Vena Cava: Patent without evidence of stenosis or thrombus. Bones and Soft Tissues: No fractures, lytic, or blastic lesions of the visualized bony structures. Soft tissues are unremarkable Thoracic spondylosis Liver: Multiple hypodense lesions of variable size and locations, largest at segment 8, about 46x53 mm with no significant enhancement, lobulated surface. Central and peripheral biliary channel dilatation with cholecystectomy clips. IMPRESSION: 1. No evidence of acute pulmonary embolism. 2. No evidence of dissection. 3. Dilated pulmonary artery, 34.7 mm. Advised clinical correlation. 4. Paraseptal emphysema. 5. Post-cholecystectomy dilated intrahepatic and extrahepatic biliary channels, and multiple hepatic focal lesions, largest at segment 8 about 46x53 mm with irregular outline. Suggest dedicated study. Electronically signed by Austin Zhang 02-07-2025 7:47 PM Discharge Plan Visit Data Chief Complaint: Cardiac Assessment Stated Complaint: AFIB, HIGH BP, ALMOST FAINTED ED Provider: Elmer Cummins Discharge Problem: Chest tightness, Hypertension, Paroxysmal atrial fibrillation Patient Disposition: Admitted As Inpatient Condition: Fair Discharge Instructions Interventions: ED Discharge Assessment Last Done: 02/07/25 22:10 Discharge Problem: Hypertension Qualifiers: Hypertension type: unspecified Qualified Code(s): I10 - Essential (primary) hypertension
[2025-02-07 17:03] LABS: Basophils # (auto) 0.04 K/uL (0.00-0.20); Basophils % (auto) 0.7 %; Eosinophils # (auto) 0.14 K/uL (0.00-0.50); Eosinophils % (auto) 2.3 %; Hematocrit (blood only) 40.6 % (37.0-47.0); Hemoglobin 13.6 g/dl (12.0-16.0); Immature Granulocytes # (auto) 0.01 K/uL (0.01-0.20); Immature Granulocytes % (auto) 0.2 %; Lymphocytes # (auto) 2.04 K/uL (1.20-3.40); Lymphocytes % (auto) 33.4 %; Mean Corpuscular Hemoglobin 30.3 pg (25.0-34.0); Mean Corpuscular Hgb Conc 33.5 g/dL (32.0-36.0); Mean Corpuscular Volume 90.4 fL (80.0-100.0); Mean Platelet Volume 10.7 fL (9.4-12.4); Monocytes # (auto) 0.44 K/uL (0.11-0.59); Monocytes % (auto) 7.2 %; Neutrophils # (auto) 3.43 K/uL (1.40-6.50); Neutrophils % (auto) 56.2 %; Platelet Count 149 K/uL (130-400); RDW Coefficient of Variation 14.6 % (11.5-14.5); RDW Standard Deviation 48.8 fL (36.4-46.3); Red Blood Count 4.49 M/uL (4.20-5.40)
--- NOTE | 2025-02-07 17:05 | XRay Report ---
Chest radiograph, one view History: Chest pain Comparison: 09/11/2023 Findings: Single AP view of the chest performed. No focal consolidation or pleural effusion. No pneumothorax. The cardiomediastinal silhouette is within normal limits. Normal pulmonary vascularity. No evidence for lymphadenopathy. No visualized bony or soft tissue abnormality. Impression: Normal chest radiograph Electronically signed by Chriss Alvarenga 02-07-2025 5:05 PM
[2025-02-07 17:23] LABS: Alanine Aminotransferase 25 U/L (7-52); Albumin Globulin Ratio 1.4 (0.9-2); Albumin Level 4.4 gm/dl (3.4-5.0); Alkaline Phosphatase 82 U/L (34-104); Anion Gap 9 (3-11); Aspartate Aminotransferase 37 U/L (13-39); BUN Creatinine Ratio 14.5 (10-20); Bilirubin,Total 0.8 mg/dl (0.2-1.0); Blood Urea Nitrogen 11 mg/dl (6-23); Calcium 9.3 mg/dl (8.6-10.3); Carbon Dioxide 23 mmol/L (21-32); Chloride 107 mmol/L (98-107); Globulin 3.1 gm/dl (2.5-4.0); Glucose 129 mg/dl (70-99(Fasting)); Lipase 57 U/L (11-82); Phosphorus 2.6 mg/dl (2.5-4.9); Sodium 139 mmol/L (136-145); Total Protein 7.5 gm/dl (6.0-8.3)
[2025-02-07 17:28] LABS: INR 1.2 (0.9-1.1); Prothrombin Time 12.9 Seconds (9.0-12.0)
[2025-02-07 17:35] LABS: Troponin I High Sensitivity 64.3 pg/ml (0-14)
[2025-02-07] MEDS: OPTIRAY 320 125ml IV ONE (17:55)
[2025-02-07 18:03] LABS: Appearance Urine Clear (Clear); Bilirubin Urine Negative (Negative); Blood Urine Negative (Negative); Color Urine Yellow; Glucose Urine UA Negative (Negative); Ketones Urine Negative (Negative); Leukocyte Esterase Urine Negative (Negative); Nitrite Urine Negative (Negative); Protein Urine Negative (Negative); Specific Gravity Urine 1.004 (1.000-1.030); Urobilinogen Urine Negative (Negative)
[2025-02-07] MEDS: SODIUM CHLORIDE 0.9% 500 ML IV ONE (18:10)
--- NOTE | 2025-02-07 19:48 | CT Scan Report ---
EXAM: CT angio chest dissec wo/w con CLINICAL HISTORY: Chest pain, HTN TECHNIQUE: CT angiography of the chest was performed with and without intravenous contrast 119 ml Optiary administrated, with the following protocol: axial images with, reconstructed coronal and sagittal images. One of these 3D techniques was utilized: Maximum Intensity Pixel (MIP), 3D Reconstructed Images, Volume Rendered Images, Surface Shaded Rendering. One of the following dose reduction techniques was utilized for this exam: Automated exposure control, adjustment of the mA and/or kV according to patient size, and use of iterative reconstruction. 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 FINDINGS: Aorta and Great Vessels: Ascending Aorta: Normal in caliber, no aneurysm, dissection, or significant atherosclerosis. Aortic Arch: Normal in caliber, no aneurysm, dissection, or significant atherosclerosis. Descending Aorta: Normal in caliber, no aneurysm, dissection, or significant atherosclerosis. Pulmonary Arteries: The main pulmonary artery is dilated to 34.7 mm, and its branches are patent. No evidence of pulmonary embolism or significant stenosis. Heart: Cardiac Chambers: Normal in size. No evidence of cardiomegaly. Pericardium: No pericardial effusion or thickening. Lungs and Pleura: No evidence of consolidation, collapse, or focal lesions. Paraseptal emphysema. No pleural effusion or pleural thickening. Basal and lingual lung cysts. Mediastinum: Small reactive right paratracheal, subcarinal, and right hilar lymph node groups. Normal appearance of the trachea and central bronchi. Hilar Structures: Hilar structures are normal without enlargement. Chest Wall: No mass lesions or abnormalities in the chest wall. Vascular Structures: Superior Vena Cava: Patent without evidence of stenosis or thrombus. Inferior Vena Cava: Patent without evidence of stenosis or thrombus. Bones and Soft Tissues: No fractures, lytic, or blastic lesions of the visualized bony structures. Soft tissues are unremarkable Thoracic spondylosis Liver: Multiple hypodense lesions of variable size and locations, largest at segment 8, about 46x53 mm with no significant enhancement, lobulated surface. Central and peripheral biliary channel dilatation with cholecystectomy clips. IMPRESSION: 1. No evidence of acute pulmonary embolism. 2. No evidence of dissection. 3. Dilated pulmonary artery, 34.7 mm. Advised clinical correlation. 4. Paraseptal emphysema. 5. Post-cholecystectomy dilated intrahepatic and extrahepatic biliary channels, and multiple hepatic focal lesions, largest at segment 8 about 46x53 mm with irregular outline. Suggest dedicated study. Electronically signed by Austin Zhang 02-07-2025 7:47 PM
--- NOTE | 2025-02-07 21:22 | History & Physical Report ---
Date of Service February 07, 2025 Assessment & Plan (1) Tachycardia: (2) Elevated troponin: (3) Paroxysmal atrial fibrillation: Plan 79-year-old female PMHx paroxysmal A-fib on xeralto, CAD s/p ADAL to LAD and LCA, HTN, HLD, hypothyroidism, and osteoporosis presenting for onset of fatigue and an elevated heart rate the day of arrival. ED evaluation reveals no leukocytosis, stable H&H; PT/INR 12.9/1.2; CMP grossly unremarkable with exception glucose 121; troponin 64.4, repeat 53.6; lipase 57; UA without infection; CXR without acute findings; chest CTA without evidence of PE or dissection, but she does have dilated pulmonary artery 34.7 and paraseptal emphysema; EKG NSR with LVH at 71 bpm.; Provided with 500 mL NSS in ED. #Tachycardia/Elevated Troponin/Paroxysmal Afib/CAD Episode of fatigue with elevated HR and chest discomfort the day of arrival. Do es have history of Afib and episodes of RVR that convert back to NSR spontaneously. Associated chest discomfort at that time. Rather significant cardiac history and follows with cardiology with most recent visit being 11/11/2024. History of CAD s/p ADAL of LAD and LCA (2010). On digoxin, metoprolol tartrate, and losartan. Most recent admission 09/11/2024-09/12/2024 for similar episode. Does have recurrent elevations of troponin upon prior evaluations. Suspect that patient was in Afib RVR at time of symptoms that converted after dose of metoprolol, ? component of GERD causing chest symptoms. Currently without symptoms however, discussed risk v benefits of admission v discharge. Pt desires admission for observation to monitor cardiac activity. - CBC unremarkable - Troponin 64.4, repeat 53.6 -> patient with chronically elevated troponin and currently downtrending , deferred further checks unless symptoms develop - EKG NSR at 71 bpm and without ischemic changes - ? demand - CXR without acute findings - Echo 08/2024 with EF 65-70%. mild/mod LVH, mild LAD, sclerotic AV without stenosis, mild MR; pending repeat - Cardiac monitoring - Continue home medications #HTN- Losartan, metoprolol - continue #HLD- Atorvastatin - continue #Hypothyroidism- Levothyroxine - continue #OP- Ibandronate monthly - hold at admission, continue following D/c #Anxiety- Lorazepam prn - continue Dispo: Observation, med/tele VTE Prophylaxis: Xeralto This document was dictated utilizing Cloak. Please excuse any grammatical errors that may be secondary to use of this software. Admission and Anticipated Discharge Date Admission Date: 02/07/2025 History of Present Illness Chief Complaint: Tachycardic Primary Care Provider: Carlos Enrique Montana DO 79-year-old female PMHx paroxysmal A-fib on xeralto, CAD s/p ADAL to LAD and LCA, HTN, HLD, hypothyroidism, and osteoporosis presenting for onset of fatigue and an elevated heart rate the day of arrival. Patient states earlier today she was gardening and went shopping with her daughter and when she got home she felt fatigued. She was going to continue with her gardening but stated that the fatigue was severe so she laid down. At that time, she notes that her heart rate was elevated and her "pulse was thumping". She checked her blood pressure and her systolic reading was in the 160s, but her heart rate was still less than 100. She tried to relax for approximately 30 minutes and then rechecked her blood pressure which was when she noted that the reading went to the systolic of 170s and her monitor read her heart rhythm as A-fib. At that time she noticed a "abnormal" sensation in her chest. She took her extra dose of metoprolol to try to decrease her readings and to alleviate her symptoms, but was unable to do so. She did have some dizziness at this time, but no weakness or syncope. Did have a chest x-ray throughout this course which is why she wanted to be evaluated because this was a different symptoms. Overall denies palpitations, abdominal pain, N/V/D/C, numbness or tingling, fever/chills, lower extremity swelling, URI symptoms, or syncope. Patient similar episode occur in August 2024 where she was found to be in A-fib with RVR but had spontaneously converted back to normal sinus. ED evaluation reveals no leukocytosis, stable H&H; PT/INR 12.9/1.2; CMP grossly unremarkable with exception glucose 121; troponin 64.4, repeat 53.6; lipase 57; UA without infection; CXR without acute findings; chest CTA without evidence of PE or dissection, but she does have dilated pulmonary artery 34.7 and paraseptal emphysema; EKG NSR with LVH at 71 bpm.; Provided with 500 mL NSS in ED. Please see Dr. Zimmer's attestation for adjustments/additions to treatment plan. Allergies Allergy/AdvReac Type Severity Reaction Status Date / Time duloxetine AdvReac Intermediate "I was on Verified 11/11/24 10:27 an emotional roller coaster" oxycodone AdvReac Intermediate nightmares Verified 11/11/24 10:27 turkey AdvReac Intermediate nausea/vomi Verified 11/11/24 10:27 ting phenazopyridine [From Azo] AdvReac Mild Shakiness Verified 11/11/24 10:27 Home Medications Medication Instructions Recorded Confirmed Type aspirin 81 mg tablet,delayed 81 mg PO QAM 12/19/18 02/07/25 History release cholecalciferol (vitamin D3) 50 2,000 unit PO QAM 12/19/18 02/07/25 History mcg (2,000 unit) tablet (Vitamin D3) loratadine 10 mg capsule 10 mg PO QAM Allergy Symptoms 12/19/18 02/07/25 History desonide 0.05 % topical cream 1 appln topical BID PRN Dry Skin 07/10/19 02/07/25 History nitroglycerin 0.4 mg sublingual 0.4 mg sublingual Q5M PRN chest 05/01/22 02/07/25 Rx tablet pain #30 tabs latanoprost 0.005 % eye drops 1 drp OPB HS 12/04/22 02/07/25 History magnesium oxide 400 mg (241.3 mg 400 mg PO DAILY #30 tabs 09/12/23 02/07/25 Rx magnesium) tablet lorazepam 0.5 mg tablet 0.5 mg PO DAILY PRN Anxiety #30 09/26/23 02/07/25 Rx tabs metoprolol tartrate 25 mg tablet 25 mg PO BID #180 tabs 06/25/24 02/07/25 Rx atorvastatin 80 mg tablet 80 mg PO HS #90 tabs 08/15/24 02/07/25 Rx ibandronate 150 mg tablet 150 mg PO MONTHLY #3 tabs 08/25/24 02/07/25 Rx losartan 100 mg tablet 100 mg PO QAM #90 tabs 09/01/24 02/07/25 Rx digoxin 125 mcg (0.125 mg) tablet 125 mcg PO DAILY #90 tabs 09/18/24 02/07/25 Rx rivaroxaban 20 mg tablet (Xarelto) 20 mg PO QAM #90 tabs 10/09/24 02/07/25 Rx brimonidine 0.2 %-timolol 0.5 % 1 drp OPB BID 02/07/25 02/07/25 History eye drops levothyroxine 75 mcg tablet 75 mcg PO DAILYBB 02/07/25 02/07/25 History Past Med/Surg History Problem List (Updated 02/07/25 @ 21:43 by Gracie Pineda PA-C) Tachycardia Osteoporosis Encounter for monitoring digoxin therapy Cervical radiculopathy (Chronic) Coronary artery disease (Chronic) Heart disease (Chronic) Hypertension (Chronic) Hyperlipidemia Hypertension (Acute) Anxiety Hypothyroidism associated with surgical procedure Glaucoma Osteopenia Antiplatelet or antithrombotic long-term use Acute pyelonephritis (Acute) UTI (urinary tract infection) (Acute) Overactive bladder Paroxysmal atrial fibrillation Urinary frequency Incontinence Central stenosis of spinal canal Status post insertion of drug-eluting stent into left anterior descending (LAD) artery Presence of drug-eluting stent in left circumflex coronary artery Chronic anticoagulation Lumbar radiculopathy Lumbar stenosis with neurogenic claudication Lumbar foraminal stenosis Other spondylosis with radiculopathy, lumbar region COVID-19 (Acute) CAD (coronary artery disease) Hypothyroidism Normal cardiac stress test Normal left ventricular systolic function and wall motion Medical History Vitamin D insufficiency Segmental and somatic dysfunction of upper extremity Segmental and somatic dysfunction of thoracic region Segmental and somatic dysfunction of rib cage Elevated liver enzymes Dyslipidemia Degeneration of 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 Cervical somatic dysfunction UTI (urinary tract infection) Elevated troponin Septic shock History of colon polyps Osteoarthritis Degenerative disc disease Hypothyroidism History of Graves' disease Anxiety Glaucoma Migraine Pulmonary embolism 2012--unknown origin Elevated troponin I level Pulmonary embolism Surgical History H/O lumbosacral spine surgery History of bilateral tubal ligation History of lumbar discectomy x3 L4-L5 History of cholecystectomy History of colonoscopy History of esophagogastroduodenoscopy (EGD) History of tooth extraction upper teeth removed History of parathyroidectomy with thyroidectomy History of thyroidectomy, total 1985--enlarged thyroid, Grave's Disease History of heart artery stent 10/2010 2 stents History of cardiac cath 10/2010 x2 Family History Grandmother (Maternal) Family history of diabetes mellitus Grandmother (Paternal) Family history of diabetes mellitus Father Myocardial infarction Other No family history of adverse response to anesthesia Denies family history of Ovarian cancer Prostate cancer Breast cancer Colorectal cancer Social History Smoking Status: Former smoker Tobacco Type: Cigarettes Age Started Using Tobacco: 20; Age Quit Using Tobacco: 69; packs per day: 0.5; Second Hand Exposure: No; Do You Dip or Chew Tobacco: No; Hx Alcohol Use: No Hx Substance Use: No Preferred Language: Indonesian Communication Ability: Effective Visual Impairment: No Limitations Hearing Ability: Use of Hearing Aid In Home Sales Consultant Required: No Beliefs That Will Affect Care: None marital status: Current Living Situation: Spouse Current Living Situation Comment: lives w/ current occupational status: retired How many Children do You have: 1 Feels Safe at Home: Yes Childhood Exposure to Second-Hand Smoke: Yes Diet: regular caffeine: Yes during the past year weight has: remained stable Dental Care, Regularly: No Physical Activity Frequency: Daily Seatbelt Use: always Sunscreen Use: Yes Assistive Devices: Denture - Upper and Denture - Lower Review of Systems Review of Systems: All systems reviewed & are unremarkable except as noted in Subjective Physical Exam Physical Exam: General: No acute distress Skin: Warm and dry Head: Normocephalic, atraumatic Eyes: PERRL, conjunctivae clear, sclera non-icteric; wearing glasses ENT: External ear and ear canal without swelling; nose atraumatic; good dentition, tongue normal appearance, pharynx normal Neck: Supple, no LAD Cardio: RRR, no M/G/R, S1 and S2 normal Resp: No respiratory distress, Lungs CTA in all lobes bilaterally, no wheezes, rales, or rhonchi Abdomen: Soft, symmetric, nontender; No masses or hepatosplenomegaly; Bowel sounds normoactive MSK: No deformities; pulses palpable and equal; no edema. Neuro: Awake, alert; Sensation intact bilaterally; CN grossly intact Psych: Appropriate mood and affect; good judgement and insight. Results & Data Results & Data Vital Signs (Past 12 Hours) Vital Signs Temp Pulse Resp BP Pulse Ox O2 Del Method 02/07/25 20:39 56 L 02/07/25 20:30 60 15 137/105 H 97 02/07/25 20:00 52 L 16 137/105 H 98 02/07/25 19:00 56 L 15 167/88 H 96 02/07/25 18:33 58 L 17 149/67 H 96 02/07/25 17:24 64 22 158/78 H 95 02/07/25 17:06 63 18 136/73 95 02/07/25 16:57 64 18 95 02/07/25 16:51 66 24 97 02/07/25 16:45 68 02/07/25 16:40 97 Room Air 02/07/25 16:25 36.9 C 85 16 172/98 H 97 Room Air Laboratory Results 02/07/25 02/07/25 02/07/25 18:30 17:22 16:42 WBC 6.10 RBC 4.49 Hgb 13.6 Hct 40.6 MCV 90.4 MCH 30.3 MCHC 33.5 RDW Std Deviation 48.8 H RDW Coeff of [place] 14.6 H Plt Count 149 MPV 10.7 Immature Gran % (Auto) 0.2 Neut % (Auto) 56.2 Lymph % (Auto) 33.4 [place] % (Auto) 7.2 Eos % (Auto) 2.3 Baso % (Auto) 0.7 Neut # (Auto) 3.43 Lymph # (Auto) 2.04 [place] # (Auto) 0.44 Eos # (Auto) 0.14 Baso # (Auto) 0.04 Immature Gran # (Auto) 0.01 PT 12.9 H INR 1.2 H Sodium 139 Potassium 4.0 Chloride 107 Carbon Dioxide 23 Anion Gap 9 BUN 11 Creatinine 0.76 Est Cr Clr Drug Dosing Not Reportable eGFR 80.66 BUN/Creatinine Ratio 14.5 Glucose 129 H Calcium 9.3 Phosphorus 2.6 Magnesium 2.0 Total Bilirubin 0.8 AST 37 ALT 25 Alkaline Phosphatase 82 Troponin I High Sens 53.6 H* D 64.3 H* Total Protein 7.5 Albumin 4.4 Globulin 3.1 Albumin/Globulin Ratio 1.4 Lipase 57 Urine Color Yellow Urine Appearance Clear Urine pH 7.0 Ur Specific [place] 1.004 Urine Protein Negative Urine Glucose (UA) Negative Urine Ketones Negative Urine Blood Negative Urine Nitrite Negative Urine Bilirubin Negative Urine Urobilinogen Negative Ur Leukocyte Esterase Negative Urine Comment Diagnostic Findings Chest X-Ray 02/07/25 16:40 Chest radiograph, one view History: Chest pain Comparison: 09/11/2023 Findings: Single AP view of the chest performed. No focal consolidation or pleural effusion. No pneumothorax. The cardiomediastinal silhouette is within normal limits. Normal pulmonary vascularity. No evidence for lymphadenopathy. No visualized bony or soft tissue abnormality. Impression: Normal chest radiograph Electronically signed by Chriss Alvarenga 02-07-2025 5:05 PM Chest CTA 02/07/25 17:35 EXAM: CT angio chest dissec wo/w con CLINICAL HISTORY: Chest pain, HTN TECHNIQUE: CT angiography of the chest was performed with and without intravenous contrast 119 ml Optiary administrated, with the following protocol: axial images with, reconstructed coronal and sagittal images. One of these 3D techniques was utilized: Maximum Intensity Pixel (MIP), 3D Reconstructed Images, Volume Rendered Images, Surface Shaded Rendering. One of the following dose reduction techniques was utilized for this exam: Automated exposure control, adjustment of the mA and/or kV according to patient size, and use of iterative reconstruction. 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 FINDINGS: Aorta and Great Vessels: Ascending Aorta: Normal in caliber, no aneurysm, dissection, or significant atherosclerosis. Aortic Arch: Normal in caliber, no aneurysm, dissection, or significant atherosclerosis. Descending Aorta: Normal in caliber, no aneurysm, dissection, or significant atherosclerosis. Pulmonary Arteries: The main pulmonary artery is dilated to 34.7 mm, and its branches are patent. No evidence of pulmonary embolism or significant stenosis. Heart: Cardiac Chambers: Normal in size. No evidence of cardiomegaly. Pericardium: No pericardial effusion or thickening. Lungs and Pleura: No evidence of consolidation, collapse, or focal lesions. Paraseptal emphysema. No pleural effusion or pleural thickening. Basal and lingual lung cysts. Mediastinum: Small reactive right paratracheal, subcarinal, and right hilar lymph node groups. Normal appearance of the trachea and central bronchi. Hilar Structures: Hilar structures are normal without enlargement. Chest Wall: No mass lesions or abnormalities in the chest wall. Vascular Structures: Superior Vena Cava: Patent without evidence of stenosis or thrombus. Inferior Vena Cava: Patent without evidence of stenosis or thrombus. Bones and Soft Tissues: No fractures, lytic, or blastic lesions of the visualized bony structures. Soft tissues are unremarkable Thoracic spondylosis Liver: Multiple hypodense lesions of variable size and locations, largest at segment 8, about 46x53 mm with no significant enhancement, lobulated surface. Central and peripheral biliary channel dilatation with cholecystectomy clips. IMPRESSION: 1. No evidence of acute pulmonary embolism. 2. No evidence of dissection. 3. Dilated pulmonary artery, 34.7 mm. Advised clinical correlation. 4. Paraseptal emphysema. 5. Post-cholecystectomy dilated intrahepatic and extrahepatic biliary channels, and multiple hepatic focal lesions, largest at segment 8 about 46x53 mm with irregular outline. Suggest dedicated study. Electronically signed by Austin Zhang 02-07-2025 7:47 PM Medications Administered 500 mL NSS ECG Additional Comments: NSR, LVH 71 bpm, SC 160, QRS 66, QT/QTc 392/425, PRT */-8/96 Code Status & VTE Plan Code Status DNR/DNI VTE Prophylaxis Plan VTE Prophylaxis will be ordered: Yes Supervising Physician Co-Signing Physician Notes patient seen and examined, chart reviewed, case discussed with AYE Pineda I agree with the assessment and plan as document above. In brief, patient is a 79-year-old female with history of paroxysmal atrial fibrillation, coronary artery disease, hypertension, hyperlipidemia presenting with fatigue and tachycardia. Mild elevation of troponin = 64.4 (patient typically presents with elevated troponin). She did take an extra metoprolol at home for her heart rate. On physical exam she is resting comfortably, no acute distress, she is bradycardic, no chest pain Skinwarm, dry, intact, no rashes or lesions HEENTmoist mucous membranes, neck supple Heart+ S1, S2, regular, bradycardic LungsCTA Abdomenpositive bowel sounds, soft, nontender, nondistended EXTR warm, well-perfused Labs and images reviewed Assessment/[id number] female with history of atrial fibrillation, coronary artery disease presented with elevated heart rate and chest discomfort. Patient presently without chest discomfort. Her heart rate now in the 50s after she took metoprolol at home. Possibly GI in nature. Patient states she is not comfortable going home this evening due to concern for recurrence of her chest discomfort Observation to medical telemetry Check 2D echo Continue home medications Remainder as above PG Care Time/CCT Total # of Minutes Spent Total Time Spent with Patient: Total time spent is greater than 50% in coordination of care (as documented) at patient's floor/unit and/or counseling patient: Coding Level of Care Code 51604 INT INP/OBS CARE 3/75MIN Diagnoses Tachycardia R00.0 Elevated troponin R77.8 Paroxysmal atrial fibrillation I48.0
[2025-02-07] MEDS ORDERED: MAGNESIUM HYDROXIDE SUSP 30 ML UDC PO PRN (23:37)
[2025-02-07] MEDS ORDERED: MELATONIN 3 MG TAB PO PRN (23:37)
[2025-02-07] MEDS ORDERED: POLYETHYLENE (MIRALAX) 17 GM PACK PO PRN (23:37)
[2025-02-07] MEDS ORDERED: NITROGLYCERIN SL 0.4 MG/TAB TAB SL PRN (23:37)
[2025-02-07] MEDS ORDERED: ONDANSETRON INJ 2 MG/ML 2 ML VIAL IV PRN (23:37)
[2025-02-07] MEDS ORDERED: LORazepam 0.5 MG TAB PO PRN (23:37)
[2025-02-08] MEDS: hydrALAZINE 10 MG TAB PO PRN (00:14)
[2025-02-08] MEDS: TIMOLOL MALEATE 0.5% OP SOLN 5 ML BTL OP SCH (00:15)
[2025-02-08] MEDS: LEVOTHYROXINE SODIUM 75 MCG TABLET PO SCH (06:15)
[2025-02-08] MEDS ORDERED: TIMOLOL MALEATE 0.5% OP SOLN 5 ML BTL OP SCH (09:00)
[2025-02-08] MEDS ORDERED: METOPROLOL TARTRATE 25 MG TAB PO SCH (09:00)
[2025-02-08] MEDS ORDERED: NON-FORMULARY MEDICATION (Brimonidine-Timolol 0.2-0.5 % drops) OPB SCH (09:00)
[2025-02-08] MEDS ORDERED: BRIMONIDINE TARTRATE 0.2% 5ML OP SCH (09:00)
[2025-02-08] MEDS: ASPIRIN 81 MG ECTAB PO SCH (10:26)
[2025-02-08] MEDS: LORATADINE 10 MG TAB PO SCH (10:27)
[2025-02-08] MEDS: BRIMONIDINE TARTRATE 0.2% 5ML OP SCH (10:27)
[2025-02-08] MEDS: LOSARTAN POTASSIUM 50 MG TAB PO SCH (10:28)
[2025-02-08] MEDS: RIVAROXABAN 20 MG TAB PO SCH (10:28)
[2025-02-08] MEDS: MAGNESIUM OXIDE 400 MG TAB PO SCH (10:28)
--- NOTE | 2025-02-08 10:46 | XCELERA ---
[id number] \\[id number]_[id number]
--- NOTE | 2025-02-08 12:33 | Hospitalist Progress Note ---
Date of Service February 08, 2025 Assessment & Plan (1) Paroxysmal atrial fibrillation: (2) Atrial fibrillation with RVR: (3) Junctional bradycardia: (4) Coronary artery disease: Plan 79-year-old female PMHx paroxysmal A-fib and history of PE on xeralto, CAD s/p ADAL to LAD and LCA admitted after an episode of weakness/fatigue and chest pressure with rapid atrial fibrillation. When she developed rapid A-fib in the afternoon she took a dose of metoprolol tartrate 25 mg x 1. She usually takes this twice a day and also digoxin. She has not been aware of being in A-fib for at least a year she was not in rapid A-fib on arrival to the ED and was relatively bradycardic, so no more metoprolol was given. early a.m. 02/08 she developed junctional bradycardia around 2:30 in the morning. I reviewed this with the telemetry techs and she has persisted going in and out of a junctional rhythm for up to 30 minutes at a time since then. She has had bradycardia at worst to the high 30s40 which has not been symptomatic. She has not been in atrial fibrillation since admission. CT angiogram Of chest was obtained in the ED was negative for pulmonary embolism or other concerning pathology. Her clinical medical assistant is Dr. Carmona. # Paroxysmal atrial fibrillation with rapid ventricular rate # junctional bradycardia # myocardial demand ischemiaminimal elevation of troponin, flat/downtrending without evidence of acute coronary syndrome # CAD with remote ADAL to LAD and LCA in 2010, hypertension, HLD -reviewed BMP and potassium, mag, creatinine normal. HG 13 not anemic reviewed TTE which is very normal with a normal ejection fraction no RWMA's, mild LA dilation and RA not well visualized, mild TR, grade I diastolic dysfunction and normal CVP discussed with Dr. Garcia and for today we will hold her metoprolol and digoxin continue monitoring telemetry -continue losartan and xarelto. continue statin. does not have heart failure and not on diuretic -check TSH/reflex #Surgical Hypothyroidism- Levothyroxine - continue. TSH pending #Anxiety- Lorazepam prn - continue admit as inpatient, continue med tele Discussed POC with patient, bedside RN, clinical medical assistant DVT ppx - on xarelto Admission and Anticipated Discharge Date Admission Date: February 07, 2025 Subjective BJ is feeling fine this morning she is not lightheaded or dyspneic and not having palpitations. She had some chest pressure yesterday when in rapid A-fib but none now she has noticed her blood pressure rising over the past few months, however, seems like it is at worst may be [id number] systolic she keeps track of her heart rate and her blood pressure cuff consents A-fib, she says she has not been in A-fib since last year when she came in with RVR no recent medication changes Physical Exam 2 Physical Exam: PHYSICAL EXAMINATION Last 24h vital signs reviewed, see documentation in flowsheet General: comfortable appearing, no distress HEENT: Normocephalic, atraumatic, pupils round and equal, sclerae anicteric, no conjunctival injection, moist mucus membranes Lungs: Normal respiratory effort. Clear to auscultation bilaterally. No RRW Heart: bradycardicRegular rate and rhythm, systolic murmur. No JVD Abdomen: Soft, nontender, nondistended. Bowel sounds present. Extremities: Warm, dry, well-perfused. No extremity edema. Neuro: Alert and oriented x 4, face symmetric, moves 4 extremities well Psych: Normal affect and behavior Results & Data Results & Data Vital Signs (Past 12 Hours) Vital Signs Temp Pulse Pulse Resp BP BP Pulse Ox 02/08/25 12:09 36.6 C 62 16 111/65 96 02/08/25 09:16 36.7 C 61 16 138/75 95 02/08/25 08:00 45 L 02/08/25 03:00 36.7 C 55 L 16 114/67 97 O2 Del Method 02/08/25 12:09 Room Air 02/08/25 09:16 Room Air 02/08/25 08:00 02/08/25 03:00 Room Air Laboratory Results 02/07/25 16:42 02/07/25 16:42 PG Care Time/CCT Total # of Minutes Spent Total Time Spent with Patient: Total time spent is greater than 50% in coordination of care (as documented) at patient's floor/unit and/or counseling patient: Coding Level of Care Code 88745 SUB INP/OBS CARE 3/50MIN Diagnoses Paroxysmal atrial fibrillation I48.0 Atrial fibrillation with RVR I48.91 Junctional bradycardia R00.1 Coronary artery disease involving [place] coronary artery of [place] heart without angina pectoris I25.10 Coronary Disease-Associated Artery/Lesion type: [place] artery [place] vs. transplanted heart: [place] heart Associated angina: without angina (4) Coronary artery disease Coronary Disease-Associated Artery/Lesion type: [place] artery [place] vs. transplanted heart: [place] heart Associated angina: without angina Qualified Code(s): I25.10 - Atherosclerotic heart disease of [place] coronary artery without angina pectoris
--- NOTE | 2025-02-08 13:58 | Electrocardiogram Report ---
Test Reason : Blood Pressure : */* mmHG Vent. Rate : 71 BPM Atrial Rate : 71 BPM P-R Int : 160 ms QRS Dur : 66 ms QT Int : 392 ms P-R-T Axes : * -8 96 degrees QTcB Int : 425 ms Normal sinus rhythm Left ventricular hypertrophy with repolarization abnormality ( R in aVL ) Abnormal ECG When compared with ECG of 11-Sep-2023 22:22, No significant change was found Confirmed by Jeromy Garcia ([id number]) on 02/08/2025 1:58:21 PM Referred By: REFERRED SELF Confirmed By: Jeromy Garcia
--- NOTE | 2025-02-08 14:04 | Electrocardiogram Report ---
Test Reason : Blood Pressure : */* mmHG Vent. Rate : 46 BPM Atrial Rate : 46 BPM P-R Int : 184 ms QRS Dur : 70 ms QT Int : 438 ms P-R-T Axes : 3 3 178 degrees QTcB Int : 383 ms Sinus bradycardia with marked sinus arrhythmia Left ventricular hypertrophy with repolarization abnormality Abnormal ECG When compared with ECG of 07-Feb-2025 16:35, (unconfirmed) Vent. rate has decreased by 25 bpm T wave inversion more evident in Anterolateral leads Confirmed by Jeromy Garcia ([id number]) on 02/08/2025 2:04:10 PM Referred By: REFERRED SELF Confirmed By: Jeromy Garcia
[2025-02-08] MEDS: DIGOXIN 0.125 MG TAB PO SCH (16:33)
[2025-02-08] MEDS: ATORVASTATIN 40 MG TAB PO SCH (20:08)
[2025-02-08] MEDS: LATANOPROST 0.005% OP SOLN 2.5 ML BTL OPB SCH (20:09)
[2025-02-08] MEDS ORDERED: LATANOPROST 0.005% OP SOLN 2.5 ML BTL OPB SCH (21:00)
[2025-02-09 07:55] VITALS: RESP 17
[2025-02-09 11:33] VITALS: PULSE 57; TEMP 97.7; O2SAT 93
--- NOTE | 2025-02-09 13:05 | Discharge Summary ---
Discharge Summary Date of Service February 09, 2025 Principal Dx & Hospital Course #1 = Principal Diagnosis (1) Atrial fibrillation with RVR: (2) Paroxysmal atrial fibrillation: (3) Junctional bradycardia: (4) Coronary artery disease: Plan 79-year-old female PMHx paroxysmal A-fib and history of PE on xeralto, CAD s/p ADAL to LAD and LCA admitted after an episode of weakness/fatigue and chest pressure with rapid atrial fibrillation. When she developed rapid A-fib in the afternoon she took a dose of metoprolol tartrate 25 mg x 1. She usually takes this twice a day and also digoxin. She has not been aware of being in A-fib for at least a year she was not in rapid A-fib on arrival to the ED and was relatively bradycardic, so no more metoprolol was given. early a.m. 02/08 she developed junctional bradycardia around 2:30 in the morning. I reviewed this with the telemetry techs and it persisted going in and out of a junctional rhythm for up to 30 minutes at a time for at least 8 hours. She has had bradycardia at worst to the high 30s40 which has not been symptomatic. She has not been in atrial fibrillation since admission. CT angiogram Of chest was obtained in the ED was negative for pulmonary embolism or other concerning pathology. Her personal loan specialist is Dr. Carmona. Metoprolol and digoxin were held and the junctional rhythm resolved. TTE obtained - very normal with a normal ejection fraction no RWMA's, mild LA dilation and RA not well visualized, mild TR, grade I diastolic dysfunction and normal CVP. [place] well after arrhythmias resolved. Consulted Dr. Garcia. She is rarely in afib - last episode was a year ago when digoxin was added. Stopped digoxin and changed metoprolol to PRN afib. Arranging follow up with Dr. Carmona soon in clinic. # Paroxysmal atrial fibrillation with rapid ventricular rate. TSH normal. # junctional bradycardia - while on digoxin and metoprolol. Dig level was 0.4. Electrolytes were not abnormal. # myocardial demand ischemiaminimal elevation of troponin, flat/downtrending without evidence of acute coronary syndrome # CAD with remote ADAL to LAD and LCA in 2010, hypertension, HLD -continue losartan and xarelto. continue statin. does not have heart failure and not on diuretic. Stopped digoxin and changed metoprolol to PRN #Surgical Hypothyroidism- Levothyroxine - continue. TSH normal on current dose #Anxiety- Lorazepam prn - continue Notes For Next Care Provider brief rapid afib resolved by time of admission. Prolonged junctional rhythm on tele despite no extra B-thien, digoxin or other meds given. Resolved and did not recur Medication Changes From Visit continue losartan and xarelto. continue statin. does not have heart failure and not on diuretic. Stopped digoxin and changed metoprolol to PRN Admission HPI Per Admitting Provider 79-year-old female PMHx paroxysmal A-fib on xeralto, CAD s/p ADAL to LAD and LCA, HTN, HLD, hypothyroidism, and osteoporosis presenting for onset of fatigue and an elevated heart rate the day of arrival. Patient states earlier today she was gardening and went shopping with her daughter and when she got home she felt fatigued. She was going to continue with her gardening but stated that the fatigue was severe so she laid down. At that time, she notes that her heart rate was elevated and her "pulse was thumping". She checked her blood pressure and her systolic reading was in the 160s, but her heart rate was still less than 100. She tried to relax for approximately 30 minutes and then rechecked her blood pressure which was when she noted that the reading went to the systolic of 170s and her monitor read her heart rhythm as A-fib. At that time she noticed a "abnormal" sensation in her chest. She took her extra dose of metoprolol to try to decrease her readings and to alleviate her symptoms, but was unable to do so. She did have some dizziness at this time, but no weakness or syncope. Did have a chest x-ray throughout this course which is why she wanted to be evaluated because this was a different symptoms. Overall denies palpitations, abdominal pain, N/V/D/C, numbness or tingling, fever/chills, lower extremity swelling, URI symptoms, or syncope. Patient similar episode occur in August 2024 where she was found to be in A-fib with RVR but had spontaneously converted back to normal sinus. ED evaluation reveals no leukocytosis, stable H&H; PT/INR 12.9/1.2; CMP grossly unremarkable with exception glucose 121; troponin 64.4, repeat 53.6; lipase 57; UA without infection; CXR without acute findings; chest CTA without evidence of PE or dissection, but she does have dilated pulmonary artery 34.7 and paraseptal emphysema; EKG NSR with LVH at 71 bpm.; Provided with 500 mL NSS in ED. Please see Dr. Zimmer's attestation for adjustments/additions to treatment plan. Discharge Exam PHYSICAL EXAMINATION Last 24h vital signs reviewed, see documentation in flowsheet General: comfortable appearing, no distress, sitting up on bed HEENT: Normocephalic, atraumatic, pupils round and equal, sclerae anicteric, no conjunctival injection, moist mucus membranes Lungs: Normal respiratory effort. Clear to auscultation bilaterally. No RRW Heart: Regular rate and rhythm, systolic murmur. No JVD Abdomen: Soft, nontender, nondistended. Bowel sounds present. Extremities: Warm, dry, well-perfused. No extremity edema. 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 You can continue to use it as needed for rapid afib Seek medical attention if you have chest pain, lightheadedness/passing out, shortness of breath with or without afib, or if rapid afib persists for hours despite metoprolol Stay on your xarelto It was a pleasure taking care of you in the hospital, Melissa Schwartz MD Pending Studies at Discharge: No Stand-Alone Forms: My [facility] [employer], Smoking Cessation Medications and DC Order Prescriptions: Continued atorvastatin 80 mg tablet 80 mg PO HS Qty: 90 3RF losartan 100 mg tablet 100 mg PO QAM Qty: 90 3RF Xarelto 20 mg tablet 20 mg PO QAM Qty: 90 3RF Rx Instructions: Take 1 tab every evening; MUST be taken with evening meal. nitroglycerin 0.4 mg tablet, sublingual 0.4 mg sublingual Q5M PRN (Reason: chest pain) Qty: 30 0RF Rx Instructions: do not exceed 3 doses per episode lorazepam 0.5 mg tablet 0.5 mg PO DAILY PRN (Reason: Anxiety) Qty: 30 0RF desonide 0.05 % cream 1 appln TOP BID PRN (Reason: Dry Skin) Rx Instructions: eyelids latanoprost 0.005 % drops 1 drp OPB HS Patient Comments: Left eye ibandronate 150 mg tablet 150 mg PO MONTHLY Qty: 3 3RF aspirin 81 mg Tablet,Delayed Release (Dr/Ec) 81 mg PO QAM cholecalciferol (vitamin D3) [Vitamin D3] 2,000 unit Tablet 2,000 unit PO QAM loratadine 10 mg Capsule 10 mg PO QAM magnesium oxide 400 mg (241.3 mg magnesium) Tablet 400 mg PO DAILY Qty: 30 0RF Rx Instructions: OTC brimonidine-timolol 0.2-0.5 % drops 1 drp OPB BID levothyroxine 75 mcg tablet 75 mcg PO DAILYBB Rx Instructions: Take 1 tablet by mouth once daily Changed metoprolol tartrate 25 mg tablet 25 - 50 mg PO DAILY PRN (Reason: atrial fibrillation) Qty: 180 3RF Discontinued digoxin 125 mcg (0.125 mg) tablet 125 mcg PO DAILY Qty: 90 3RF Discharge Orders: Discharge Order (Routine); Ordered 02/09/25 Ordered By: Melissa Finley/Other Patient Handouts: Metoprolol Oral Tablet, Your Heart's Electrical System, AFib Dc, Understanding Tachycardia Admission Data Admit Date/Time: 02/08/25 12:43 Attending Provider: Melissa Schwartz Admit Provider: Nicky Zimmer Primary Care Provider: Carlos Enrique Montana Other Providers: Nicky Zimmer; Huy Gilliam; Yung Goodman; Jeromy Garcia; Barrie Deleon; Parrish Talamantes; Paulie Carmona Jr; Dima Alcantara; Sravani Muñoz; Laura Pritchard; Chriss Burnette; Chriss Edmond; Alyssa Nicole; Chacorta Lazaro; Nallely Eagle; Chacorta Thompson; Rohan Wagner; Js Solo Other Interventions: Discharge Summary Assessment (RN) Last Done: 02/09/25 13:14 Hospital Stay Data Consultations 02/07/25 20:25 ED Decision to Admit Stat 02/09/25 09:04 Consult Cardiology Routine Diagnostic Imagining Performed 02/07/25 17:35 CT angio chest dissec wo/w con Stat Pending Results Patient Have Any Pending Studies at Discharge: No Discharge Instructions Given to Patient (Per Discharging Provider) You had an episode of rapid afib - this stopped on its own after dose of metoprolol You had a type of very slow heart rate called a junctional rhythm - heart beat went back to normal once we held your medications Stop the digoxin Stop taking metoprolol daily. You can continue to use it as needed for rapid afib Seek medical attention if you have chest pain, lightheadedness/passing out, shortness of breath with or without afib, or if rapid afib persists for hours despite metoprolol Stay on your xarelto It was a pleasure taking care of you in the hospital, Melissa Schwartz MD Total Time Total Time Spent Total Time Spent (In Minutes): <30 Coding Level of Care Code 64623 IN/OBS DISCH 30 MIN/LESS Diagnoses Atrial fibrillation with RVR I48.91 Paroxysmal atrial fibrillation I48.0 Junctional bradycardia R00.1 Coronary artery disease involving [place] coronary artery of benton heart without angina pectoris I25.10 Associated angina: without angina Coronary Disease-Associated Artery/Lesion type: [place] artery [place] vs. transplanted heart: benton heart
[2025-02-09 13:15] VITALS: BP 114/67
--- NOTE | 2025-02-09 13:22 | Cardiology Consultation ---
Date of Consultation February 09, 2025 Assessment & Plan (1) Bradycardia: -Currently in sinus rhythm with heart rates varying from 45 to 65 bpm. -Several episodes of asymptomatic junctional bradycardia noted. -Metoprolol tartrate and digoxin have been placed on hold. -Of note, she is on Timoptic eyedrops. -Reasonable to discontinue digoxin at this time. -Would use metoprolol tartrate on a as needed basis. -Stable for hospital discharge. -Follow-up with Dr. Carmona. (2) Paroxysmal atrial fibrillation: -Continue Xarelto. -Metoprolol and digoxin as above. (3) Coronary artery disease: -s/p LAD and OM 2 stents, October 2010. -Quiescent on current medical regimen. (4) Hypertension: -Adequate control on current regimen. (5) Hyperlipidemia: -Continue atorvastatin. History of Present Illness Attending Physician: Melissa Schwartz MD History of Present Illness Mrs. Dsouza is a 79-year-old female admitted on February 07 after an episode of atrial fibrillation with a rapid ventricular response. She has demonstrated some bradycardia, therefore, this consultation was ordered. Of note, the patient typically follows with Dr. Carmnoa in the outpatient setting. The patient does carry a history of paroxysmal atrial fibrillation and has been on a rate control and long-term anticoagulation strategy for several years. Her most recent episode occurred in August 2023 which prompted a hospitalization. The patient was in her usual state of health until the day of presentation. She had the abrupt onset of fatigue and an elevated heart rate. Her monitor noted atrial fibrillation with a rapid ventricular response. She took her evening dose of metoprolol tartrate early in an attempt to slow her atrial fibrillation rate. She then proceeded to the emergency room. On arrival here, the patient had converted to sinus rhythm in the 60 to 70 bpm range. At approximately 2 PM on the morning of February 08, the patient went into a junctional bradycardia in the 50s for approximately 30 minutes. She then had several recurrent episodes. Her metoprolol and digoxin was placed on hold. Review of Dr. Carmona's office note from November 11 explains that the patient carries a history of "sinus bradycardia." The patient also carries a history of coronary artery disease. She had drug- eluting stents placed within the LAD and second obtuse marginal branch in October 2010 while living in [place]. She has done well from a cardiac perspective since that time. She does not experience exertional angina pectoris or limiting dyspnea. She further denies syncope, presyncope, PND, orthopnea, lower extremity edema, and claudication. Currently, patient is resting comfortably in bed and without complaints. Past medical and surgical history 1. Coronary artery diseasesee above 2. LAD DESFebruary 2010 3. OM2 DESFebruary 2010 4. Hypertension 5. Moderate LVH 6. Hypercholesterolemia 7. Paroxysmal atrial fibrillation 8. History of sinus bradycardia 9. Hypothyroidism 10. Vitamin D deficiency 11. Lumbar spinal stenosis 12. Lumbar discectomy 13. Cholecystectomy 14. Thyroidectomy 15. 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 Allergies Allergy/AdvReac Type Severity Reaction Status Date / Time duloxetine AdvReac Intermediate "I was on Verified 11/11/24 10:27 an emotional roller coaster" oxycodone AdvReac Intermediate nightmares Verified 11/11/24 10:27 turkey AdvReac Intermediate nausea/vomi Verified 11/11/24 10:27 ting phenazopyridine [From Azo] AdvReac Mild Shakiness Verified 11/11/24 10:27 Home Medications Medication Instructions Recorded Confirmed Type aspirin 81 mg tablet,delayed 81 mg PO QAM 12/19/18 02/07/25 History release cholecalciferol (vitamin D3) 50 2,000 unit PO QAM 12/19/18 02/07/25 History mcg (2,000 unit) tablet (Vitamin D3) loratadine 10 mg capsule 10 mg PO QAM Allergy Symptoms 12/19/18 02/07/25 History desonide 0.05 % topical cream 1 appln topical BID PRN Dry Skin 07/10/19 02/07/25 History nitroglycerin 0.4 mg sublingual 0.4 mg sublingual Q5M PRN chest 05/01/22 02/07/25 Rx tablet pain #30 tabs latanoprost 0.005 % eye drops 1 drp OPB HS 12/04/22 02/07/25 History magnesium oxide 400 mg (241.3 mg 400 mg PO DAILY #30 tabs 09/12/23 02/07/25 Rx magnesium) tablet lorazepam 0.5 mg tablet 0.5 mg PO DAILY PRN Anxiety #30 09/26/23 02/07/25 Rx tabs atorvastatin 80 mg tablet 80 mg PO HS #90 tabs 08/15/24 02/07/25 Rx ibandronate 150 mg tablet 150 mg PO MONTHLY #3 tabs 08/25/24 02/07/25 Rx losartan 100 mg tablet 100 mg PO QAM #90 tabs 09/01/24 02/07/25 Rx rivaroxaban 20 mg tablet (Xarelto) 20 mg PO QAM #90 tabs 10/09/24 02/07/25 Rx brimonidine 0.2 %-timolol 0.5 % 1 drp OPB BID 02/07/25 02/07/25 History eye drops levothyroxine 75 mcg tablet 75 mcg PO DAILYBB 02/07/25 02/07/25 History metoprolol tartrate 25 mg tablet 25 - 50 mg (1 - 2 x 25 mg) PO 02/09/25 02/07/25 Rx DAILY PRN atrial fibrillation #180 tabs Patient History Medical History Vitamin D insufficiency Segmental and somatic dysfunction of upper extremity Segmental and somatic dysfunction of thoracic region Segmental and somatic dysfunction of rib cage Elevated liver enzymes Dyslipidemia Degeneration of 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 Cervical somatic dysfunction UTI (urinary tract infection) Elevated troponin Septic shock History of colon polyps Osteoarthritis Degenerative disc disease Hypothyroidism History of Graves' disease Anxiety Glaucoma Migraine Pulmonary embolism 2012--unknown origin Elevated troponin I level Pulmonary embolism Surgical History H/O lumbosacral spine surgery History of bilateral tubal ligation History of lumbar discectomy x3 L4-L5 History of cholecystectomy History of colonoscopy History of esophagogastroduodenoscopy (EGD) History of tooth extraction upper teeth removed History of parathyroidectomy with thyroidectomy History of thyroidectomy, total 1985--enlarged thyroid, Grave's Disease History of heart artery stent 10/2010 2 stents History of cardiac cath 10/2010 x2 Family History Grandmother (Maternal) Family history of diabetes mellitus Grandmother (Paternal) Family history of diabetes mellitus Father Myocardial infarction Other No family history of adverse response to anesthesia Denies family history of Ovarian cancer Prostate cancer Breast cancer Colorectal cancer Social History Smoking Status: Former smoker Tobacco Type: Cigarettes Age Started Using Tobacco: 20; Age Quit Using Tobacco: 69; packs per day: 0.5; Second Hand Exposure: No; Do You Dip or Chew Tobacco: No; Hx Alcohol Use: No Hx Substance Use: No Preferred Language: Armenian Communication Ability: Effective Visual Impairment: No Limitations Hearing Ability: Use of Hearing Aid Music Agent Required: No Beliefs That Will Affect Care: None marital status: Current Living Situation: Spouse Current Living Situation Comment: lives w/ current occupational status: retired How many Children do You have: 1 Feels Safe at Home: Yes Childhood Exposure to Second-Hand Smoke: Yes Diet: regular caffeine: Yes during the past year weight has: remained stable Dental Care, Regularly: No Physical Activity Frequency: Daily Seatbelt Use: always Sunscreen Use: Yes Assistive Devices: Denture - Upper, Denture - Lower, Glasses and Hearing Aid - Bilateral Physical Exam Physical Exam: In general this is a well-developed well-nourished white female in no acute distress. HEENT exam is negative. Neck reveals normal carotid upstrokes without bruits. Jugular venous pressure is flat at 90. There is no thyromegaly. Cardiovascular exam reveals a regular rhythm with distant breath sounds. No obvious murmurs.. Lungs are clear without rales, rhonchi, or wheezes. Abdomen is soft without bruits. Extremities reveal intact radial artery pulses bilaterally. There is no peripheral edema. Results & Data Vital Signs (Past 12 Hours) Vital Signs Temp Pulse Pulse Resp BP Pulse Ox O2 Del Method 02/09/25 11:32 36.5 C 57 L 17 113/66 93 Room Air 02/09/25 07:54 36.4 C L 51 L 17 166/89 H 98 Room Air 02/09/25 05:40 48 L 02/09/25 02:51 60 18 132/78 98 Room Air Laboratory Results CBC and PRP are unremarkable. Magnesium level is normal at 2.0. Initial high- sensitivity troponin was 64.3 with a follow-up value of 53.6. TSH is normal at 1.2. Digoxin level is low at 0.4. Diagnostic Findings Echocardiogram notes normal left ventricular systolic function with ejection fraction of 60 to 65%. There is moderate LVH along with mild tricuspid regurgitation. Compared to the study performed in August 2023, no significant change. CT scan of the chest showed no evidence of a pulmonary embolism. EKG notes sinus bradycardia and left ventricular perjury with repolarization changes. PG Care Time/CCT Total # of Minutes Spent Total Time Spent with Patient: Total time spent is greater than 50% in coordination of care (as documented) at patient's floor/unit and/or counseling patient: Coding Level of Care Code 94206 INT INP/OBS CARE 3/75MIN Diagnoses Bradycardia R00.1 Paroxysmal atrial fibrillation I48.0 Coronary artery disease involving [place] coronary artery of [place] heart without angina pectoris I25.10 Coronary Disease-Associated Artery/Lesion type: [place] artery [place] vs. transplanted heart: [place] heart Associated angina: without angina Hypertension, unspecified type I10 Hypertension type: unspecified Hyperlipidemia, unspecified hyperlipidemia type E78.5 Hyperlipidemia type: unspecified (3) Coronary artery disease Coronary Disease-Associated Artery/Lesion type: [place] artery [place] vs. transplanted heart: [place] heart Associated angina: without angina Qualified Code(s): I25.10 - Atherosclerotic heart disease of [place] coronary artery without angina pectoris (4) Hypertension Hypertension type: unspecified Qualified Code(s): I10 - Essential (primary) hypertension (5) Hyperlipidemia Hyperlipidemia type: unspecified Qualified Code(s): E78.5 - Hyperlipidemia, unspecified
== END 2025-02-09 13:53 | disposition home or self-care (01) | DRG 309 ==
LOC: ED 16:24 → 2N 16:24 → SUATTDRO 21:19 → 2N 22:10